=== PATIENT | female | born 1950 | race Caucasian/White ===

== ENCOUNTER → 2016-05-23 | Outpatient (REF) | payer MEDICARE ==
[~2016-05-23] MED LIST: /FENT25PA; /WARF25TA; ACET65TA; ASP81 PO; ASPI1TAB5 PO; ASPI81TA3; ASPI81TA31; ATEN25TA; ATENOL25 PO; AVANDIA4 PO; BUSPAR10 PO; CEFT500T PO; CHERSYP3 PO; CIPRO500 PO; COLA100C2; COMBIN INH; DURATUSS-G PO; ENOX40SY; GLUC500T; IBUP600T; IBUP800T; INSURSD IV; LASIX20 PO; LEVAQUI500 PO; LIPI20TA; LIPITOR10 PO; LIPITOR20 PO; LORA0.5T; LOTRISCREA TOPICALLY; METF1000 PO; METF500T4; METFORM100 PO; METFORM500 PO; MILKSUS; MOTR200T4; MYCOLOG2 TOPICALLY; NITR0.4S; NITROQUICK; NITROSTAT4 SL; NYSTATIN OINT; OMEPRAZ20 PO; PERC5TAB8; PERCOCET; PRIL20CA; PRILOSEC20 PO; PYRIDIU200 PO; SENO8.6T5; SILV1CRE19 EX; THERGRAN; VICKS VAPOR RUB; VICO5TAB; VITAMIN D; VITAMIN D50000 UNT; ZETIA PO; ZOCO40TA; ZYLO300T; [UNRECOGNIZED DRUG - OTHER] PO
[2016-05-23 13:02] LABS: PERCENT SATURATION 8.5 % (13.2-37.4)
== END ==
LOC: M LAB REF 12:32
PROVIDERS: ATTEND Internal Medicine Medical Oncology
DX: D50.9 Iron deficiency anemia, unspecified (principal)

== ENCOUNTER → 2016-06-19 | Outpatient (CLI) | payer MEDICARE | LOC: M ONCR 09:41 | PROVIDERS: ATTEND Radiology Radiation Oncology | DX: C50.511 Malignant neoplasm of lower-outer quadrant of right female breast (principal) ==

== ENCOUNTER → 2016-09-26 | Outpatient (REF) | payer MEDICARE ==
[~2016-09-26] MED LIST changes: +CALC1TAB40 PO; +FERR150C PO; +FURO40TA2; +JANU100T PO; +LISI-542 PO; +MAGN64TASA PO; +NADO40TA; +OMEP20CA3 PO; +SPIR50TA2
[2016-09-26 13:10] LABS: PERCENT SATURATION 9.3 % (13.2-37.4)
== END ==
LOC: M LAB REF 12:23
PROVIDERS: ATTEND Internal Medicine Medical Oncology
DX: C50.919 Malignant neoplasm of unspecified site of unspecified female breast (principal)

== ENCOUNTER → 2016-10-25 | Outpatient (CLI) | payer MEDICARE ==
--- NOTE | 2016-10-25 12:36 | REP ---
Right lower extremity deep vein duplex ultrasound: The deep veins demonstrate normal compression, normal Doppler color flow and normal Doppler waveforms with respiration and augmentation at multiple levels from the right popliteal vein to the right common femoral vein. Impression: There is no deep vein thrombus. Signed by Lui Cruz MD 10/25/2016 12:28 P
== END ==
LOC: M RAD 11:42
PROVIDERS: ATTEND Nurse Practitioner Family
DX: R22.42 Localized swelling, mass and lump, left lower limb (principal); M79.604 Pain in right leg

== ENCOUNTER 2016-12-02 21:18 | Emergency (ER) | payer MEDICARE ==
[~2016-12-02] VITALS: Ht 157.5 cm; Wt 84.1 kg
[~2016-12-02 21:18] MED LIST changes: -CALC1TAB40 PO; -FERR150C PO; -FURO40TA2; -JANU100T PO; -LISI-542 PO; -MAGN64TASA PO; -NADO40TA; -OMEP20CA3 PO; -SPIR50TA2
[2016-12-02] MEDS ORDERED: JANU100T PO (21:39)
[2016-12-02] MEDS ORDERED: LISI-542 PO (21:39)
[2016-12-02] MEDS ORDERED: CALC1TAB40 PO (21:39)
[2016-12-02] MEDS ORDERED: MAGN64TASA PO (21:39)
[2016-12-02] MEDS ORDERED: FERR150C PO (21:39)
[2016-12-02] MEDS ORDERED: OMEP20CA3 PO (21:39)
[2016-12-02 22:11] LABS: BASO % 0.4 % (0.0-1.0); EOS # 0.2 K/mm3 (0.0-0.50); EOS % 2.2 % (0.0-3.0); LARGE UNSTAINED CELL # 0.1 K/mm3 (0.0-0.4); LARGE UNSTAINED CELL % 1.2 % (0.0-4.0); LYMPH # 0.8 K/mm3 (1.5-4.5); LYMPH % 10.5 % (24.0-44.0); MEAN CORPUSCULAR HEMOGLOBIN 28.6 pg (27.0-33.0); MEAN CORPUSCULAR VOLUME 89.6 fl (80.0-96.0); MONO # 0.5 K/mm3 (0.0-0.8); NEUTROPHILS # 5.9 K/mm3 (1.8-7.7); NEUTROPHILS % 79.7 % (36.0-66.0); PLATELET COUNT, AUTOMATED 138 k/mm3 (150-450); WHITE BLOOD COUNT 7.4 K/mm3 (4.0-10.0)
[2016-12-02 22:18] LABS: INR 1.4
[2016-12-02 22:22] LABS: ANION GAP 9 MEQ/L (8-16); BLOOD UREA NITROGEN 27 MG/DL (7-18); CALCIUM LEVEL 8.7 MG/DL (8.8-10.2); CARBON DIOXIDE LEVEL 27 MEQ/L (21-32); CHLORIDE LEVEL 109 MEQ/L (98-107); CREATININE FOR GFR 0.55 MG/DL (0.55-1.02); GLOMERULAR FILTRATION RATE > 60.0 (>45); GLUCOSE, FASTING 156 MG/DL (80-110); POTASSIUM SERUM 4.1 MEQ/L (3.5-5.1); SODIUM LEVEL 145 MEQ/L (136-145)
[2016-12-03] MEDS ORDERED: METOCLOPRAMIDE INJ 10MG/2ML VIAL (J2765) IV ONE (00:30)
[2016-12-03] MEDS ORDERED: OCTREOTIDE ACETATE 100 MCG/ML VIAL (J2354) IV ONE (00:45)
[2016-12-03] MEDS: OCTREOTIDE ACETATE 1,200 MCG in NS 238.8 ML IV SCH ×2 (01:35→01:36)
[2016-12-03 01:43] VITALS: BP 205/98
== END 2016-12-03 01:48 | disposition short-term general hospital (02) ==
LOC: EDBD 21:18 → M ED 21:18
DX: I85.11 Secondary esophageal varices with bleeding (principal); I10 Essential (primary) hypertension; E11.9 Type 2 diabetes mellitus without complications; D50.9 Iron deficiency anemia, unspecified; K21.9 Gastro-esophageal reflux disease without esophagitis; Z79.899 Other long term (current) drug therapy; Z79.82 Long term (current) use of aspirin; Z88.2 Allergy status to sulfonamides
CPT/HCPCS: 80048; 85025; 85610; 85730; 86850; 86900; 86901; 96374; 96375; 99285; J2354; J2765

== ENCOUNTER → 2016-12-09 | Outpatient (REF) | payer MEDICARE ==
[~2016-12-09] MED LIST changes: +CALC1TAB40 PO; +FERR150C PO; +FURO40TA2; +JANU100T PO; +LISI-542 PO; +MAGN64TASA PO; +NADO40TA; +OMEP20CA3 PO; +SPIR50TA2
== END ==
LOC: M LAB REF 16:32
PROVIDERS: ATTEND Nurse Practitioner Family
DX: I85.01 Esophageal varices with bleeding (principal)

== ENCOUNTER 2016-12-18 18:26 | Emergency (ER) | payer MEDICARE ==
[~2016-12-18] VITALS: Ht 157.5 cm; Wt 80.5 kg
[~2016-12-18 18:26] MED LIST changes: -FURO40TA2; -NADO40TA; -SPIR50TA2
[2016-12-18] MEDS ORDERED: SPIR50TA2 (18:37)
[2016-12-18] MEDS ORDERED: NADO40TA (18:37)
[2016-12-18] MEDS ORDERED: FURO40TA2 (18:37)
[2016-12-18] MEDS ORDERED: NS 500 ML IV ONE (19:00)
--- NOTE | 2016-12-18 19:32 | REP ---
REASON: Abdominal pain. History of varices. COMPARISON: 04/10/2012, the latest prior. FINDINGS: Supine and upright views of the abdomen show the intestinal gas pattern to be nonspecific. Gas and stool is seen throughout the colon within the rectosigmoid region. The organ silhouettes insofar as delineated appear unremarkable. No abdominal calcific densities are seen within the abdomen or pelvis. The accompanying single frontal view of the chest shows no free subdiaphragmatic air, cardiomegaly, infiltrates or effusions. The frontal view of the chest view of the chest is unchanged from the prior chest radiograph of 04/10/2012. IMPRESSION: Nonspecific intestinal gas pattern. Signed by Tomer Marrero DO 12/18/2016 07:35 P
[2016-12-18 20:28] LABS: BASO % 0.2 % (0.0-1.0); EOS # 0.2 10^3/uL (0.0-0.50); EOS % 2.1 % (0.0-3.0); IMMATURE GRANULOCYTE % 0.5 % (0-0); LYMPH % 11.9 % (24.0-44.0); MEAN CORPUSCULAR HEMOGLOBIN 26.9 pg (27.0-33.0); MEAN CORPUSCULAR HGB CONC 31.3 g/dl (32.0-36.5); MEAN CORPUSCULAR VOLUME 85.8 fl (80.0-96.0); MONO # 0.8 10^3/uL (0.0-0.8); MONO % 8.8 % (0.0-5.0); NEUTROPHILS # 6.7 10^3/uL (1.8-7.7); NEUTROPHILS % 76.5 % (36.0-66.0); PLATELET COUNT, AUTOMATED 118 10^3/uL (150-450); RED CELL DISTRIBUTION WIDTH 14.3 % (11.5-14.5); WHITE BLOOD COUNT 8.7 10^3/uL (4.0-10.0)
[2016-12-18 20:31] LABS: ADD MORPHOLOGY? NO
[2016-12-18 20:37] LABS: INR 1.33
[2016-12-18 20:44] LABS: ALBUMIN/GLOBULIN RATIO 1.11 (1.00-1.93); ALKALINE PHOSPHATASE 82 U/L (45-117); ALT/SGPT 26 U/L (12-78); ANION GAP 8 MEQ/L (8-16); AST/SGOT 26 U/L (15-37); BILIRUBIN,DIRECT 0.2 MG/DL (0.0-0.2); BILIRUBIN,TOTAL 1.2 MG/DL (0.2-1.0); BLOOD UREA NITROGEN 17 MG/DL (7-18); CALCIUM LEVEL 8.6 MG/DL (8.8-10.2); CARBON DIOXIDE LEVEL 26 MEQ/L (21-32); CHLORIDE LEVEL 104 MEQ/L (98-107); CREATININE FOR GFR 0.54 MG/DL (0.55-1.02); GLOMERULAR FILTRATION RATE > 60.0 (>45); GLUCOSE, FASTING 126 MG/DL (80-110); SODIUM LEVEL 138 MEQ/L (136-145); TOTAL PROTEIN 5.7 GM/DL (6.4-8.2)
[2016-12-18 22:40] VITALS: BP 133/66
--- NOTE | 2016-12-19 20:43 | ECGEPIP ---
Stationary ECG Study [facility] - ED Test Date: 2016-12-18 Pat Name: MICHELLE SQUIRES Department: Room: - Gender: F [employer]inated [employer]inder: TANIA : 1950 Requested By: Paz Stephens Order Number: [id number] Reading MD: Paz Stephens Measurements Intervals [place] Rate: 87 P: 36 UT: 161 QRS: 49 QRSD: 86 T: 29 QT: 357 QTc: 431 Interpretive Statements SINUS RHYTHM WITH OCCASIONAL ECTOPIC PREMATURE COMPLEXES NSTTW ABNORMALITY NO PRIOR FOR COMPARISON Electronically Signed On 12-19-2016 20:43:13 EDT by Paz Stephens
== END 2016-12-18 22:44 | disposition short-term general hospital (02) ==
LOC: M ED 18:26
DX: E11.9 Type 2 diabetes mellitus without complications (principal); Z79.899 Other long term (current) drug therapy; Z79.84 Long term (current) use of oral hypoglycemic drugs; Z88.2 Allergy status to sulfonamides

== ENCOUNTER → 2017-01-01 | Outpatient (CLI) | payer MEDICARE ==
[~2017-01-01] MED LIST changes: +FURO40TA2; +NADO40TA; +SPIR50TA2
[2017-01-01 11:55] LABS: MEAN CORPUSCULAR HEMOGLOBIN 25.1 pg (27.0-33.0); MEAN CORPUSCULAR HGB CONC 31.3 g/dl (32.0-36.5); MEAN CORPUSCULAR VOLUME 80.2 fl (80.0-96.0); RED CELL DISTRIBUTION WIDTH 15.4 % (11.5-14.5); WHITE BLOOD COUNT 6.5 10^3/uL (4.0-10.0)
[2017-01-01 11:58] LABS: INR 1.42
[2017-01-01 12:16] LABS: ALKALINE PHOSPHATASE 77 U/L (45-117); ALT/SGPT 26 U/L (12-78); ANION GAP 9 MEQ/L (8-16); AST/SGOT 35 U/L (15-37); BILIRUBIN,TOTAL 1.5 MG/DL (0.2-1.0); BLOOD UREA NITROGEN 21 MG/DL (7-18); CARBON DIOXIDE LEVEL 25 MEQ/L (21-32); CHLORIDE LEVEL 101 MEQ/L (98-107); CREATININE FOR GFR 0.78 MG/DL (0.55-1.02); GLOMERULAR FILTRATION RATE > 60.0 (>45); GLUCOSE, FASTING 127 MG/DL (80-110); POTASSIUM SERUM 4.3 MEQ/L (3.5-5.1); SODIUM LEVEL 135 MEQ/L (136-145); TOTAL PROTEIN 5.5 GM/DL (6.4-8.2)
== END ==
LOC: M LAB 10:35
PROVIDERS: ATTEND Nurse Practitioner Family
DX: K74.60 Unspecified cirrhosis of liver (principal)

== ENCOUNTER → 2017-01-15 | Outpatient (CLI) | payer MEDICARE ==
[2017-01-15 17:44] LABS: BASO % 0.1 % (0.0-1.0); EOS # 0.1 10^3/uL (0.0-0.50); EOS % 1.5 % (0.0-3.0); IMMATURE GRANULOCYTE % 0.4 % (0-0); LYMPH # 0.9 10^3/uL (1.5-4.5); LYMPH % 12.9 % (24.0-44.0); MEAN CORPUSCULAR HEMOGLOBIN 23.8 pg (27.0-33.0); MEAN CORPUSCULAR HGB CONC 29.5 g/dl (32.0-36.5); MEAN CORPUSCULAR VOLUME 80.7 fl (80.0-96.0); MONO # 0.7 10^3/uL (0.0-0.8); MONO % 10.9 % (0.0-5.0); NEUTROPHILS % 74.2 % (36.0-66.0); PLATELET COUNT, AUTOMATED 182 10^3/uL (150-450); RED CELL DISTRIBUTION WIDTH 17.2 % (11.5-14.5); WHITE BLOOD COUNT 6.7 10^3/uL (4.0-10.0)
[2017-01-15 18:00] LABS: ALBUMIN 3.2 GM/DL (3.2-5.2); ALBUMIN/GLOBULIN RATIO 1.28 (1.00-1.93); ALKALINE PHOSPHATASE 84 U/L (45-117); ALT/SGPT 23 U/L (12-78); ANION GAP 12 MEQ/L (8-16); AST/SGOT 20 U/L (15-37); BILIRUBIN,TOTAL 1.6 MG/DL (0.2-1.0); BLOOD UREA NITROGEN 18 MG/DL (7-18); CALCIUM LEVEL 8.9 MG/DL (8.8-10.2); CARBON DIOXIDE LEVEL 26 MEQ/L (21-32); CHLORIDE LEVEL 100 MEQ/L (98-107); CREATININE FOR GFR 0.89 MG/DL (0.55-1.02); GLOMERULAR FILTRATION RATE > 60.0 (>45); GLUCOSE, FASTING 120 MG/DL (80-110); MAGNESIUM LEVEL 1.9 MG/DL (1.8-2.4); POTASSIUM SERUM 3.9 MEQ/L (3.5-5.1); SODIUM LEVEL 138 MEQ/L (136-145); TOTAL PROTEIN 5.7 GM/DL (6.4-8.2)
== END ==
LOC: M WUC 12:23
PROVIDERS: ATTEND Internal Medicine Cardiovascular Disease
DX: I49.40 Unspecified premature depolarization (principal); I49.3 Ventricular premature depolarization; R60.0 Localized edema; R94.31 Abnormal electrocardiogram [ECG] [EKG]; I25.10 Atherosclerotic heart disease of native coronary artery without angina pectoris

== ENCOUNTER → 2017-02-25 | Outpatient (REF) | payer MEDICARE | LOC: M LAB REF 16:28 | PROVIDERS: ATTEND Family Medicine | DX: R19.7 Diarrhea, unspecified (principal) ==

== ENCOUNTER → 2017-03-12 | Outpatient (CLI) | payer MEDICARE ==
--- NOTE | 2017-03-12 11:23 | REPMRS ---
Patient History The patient states she has not had a clinical breast exam in over a year. Patient is postmenopausal, has history of breast cancer at age 57, and had first child at age 31. Family history of prostate cancer in maternal uncle at age 50. Radiation therapy of the right breast, October 2008. Chemotherapy, April 2008. Taking tamoxifen for 3 years. Digital Mammo Screening Bilat: March 12, 2017 - Exam #: [id number] Bilateral CC and MLO view(s) were taken. Technologist: Gaby Paz Technologist Prior study comparison: March 11, 2016, bilateral digital mammo screening bilat performed at [facility]. March 09, 2015, bilateral digital mammo screening bilat performed at [facility]. FINDINGS: There are scattered fibroglandular densities. There is a fairly symmetric fibroglandular pattern in both breasts. There has been no interval development of masses, areas of architectural distortion or clusters of microcalcifications typical of malignancy. ASSESSMENT: BI-RADS/ACR category 2 mammogram. Benign finding(s). Recommendation Routine screening mammogram of both breasts in 1 year (for women over age 40). This mammogram was interpreted with the aid of an FDA-approved computer-aided dectection system. Electronically Signed By: Lui Cohen MD 03/12/17 [id number]
== END ==
LOC: M RAD 09:56
PROVIDERS: ATTEND Family Medicine
DX: Z12.31 Encounter for screening mammogram for malignant neoplasm of breast (principal); Z85.3 Personal history of malignant neoplasm of breast; Z79.899 Other long term (current) drug therapy; Z78.0 Asymptomatic menopausal state

== ENCOUNTER → 2017-05-05 | Outpatient (CLI) | payer MEDICARE | LOC: M RAD 09:09 | DX: K74.60 Unspecified cirrhosis of liver (principal); K76.6 Portal hypertension; Z98.890 Other specified postprocedural states | CPT/HCPCS: 76705 ==

== ENCOUNTER → 2017-05-06 | Outpatient (CLI) | payer MEDICARE ==
[2017-05-06 12:25] LABS: BASO % 0.5 % (0.0-1.0); EOS # 0.1 10^3/uL (0.0-0.50); EOS % 1.9 % (0.0-3.0); HEMATOCRIT 34.5 % (36.0-47.0); HEMOGLOBIN 11.3 g/dl (12.0-16.0); IMMATURE GRANULOCYTE % 0.3 % (0-3.0); LYMPH # 0.9 10^3/uL (1.5-4.5); LYMPH % 15.1 % (24.0-44.0); MEAN CORPUSCULAR HEMOGLOBIN 27.5 pg (27.0-33.0); MEAN CORPUSCULAR HGB CONC 32.8 g/dl (32.0-36.5); MEAN CORPUSCULAR VOLUME 83.9 fl (80.0-96.0); MONO # 0.6 10^3/uL (0.0-0.8); MONO % 10.7 % (0.0-5.0); NEUTROPHILS # 4.2 10^3/uL (1.8-7.7); NEUTROPHILS % 71.5 % (36.0-66.0); PLATELET COUNT, AUTOMATED 145 10^3/uL (150-450); RED BLOOD COUNT 4.11 10^6/uL (4.00-5.40); RED CELL DISTRIBUTION WIDTH 17.7 % (11.5-14.5); WHITE BLOOD COUNT 5.9 10^3/uL (4.0-10.0)
[2017-05-06 13:03] LABS: ALPHA FETOPROTEIN TUMOR QUANT 1.4 NG/ML (<8.1)
[2017-05-06 13:07] LABS: ALBUMIN 3.3 GM/DL (3.2-5.2); ALBUMIN/GLOBULIN RATIO 1.18 (1.00-1.93); ALKALINE PHOSPHATASE 104 U/L (45-117); ALT/SGPT 31 U/L (12-78); ANION GAP 10 MEQ/L (8-16); AST/SGOT 39 U/L (7-37); BILIRUBIN,DIRECT 0.4 MG/DL (0.0-0.2); BILIRUBIN,TOTAL 1.7 MG/DL (0.2-1.0); BLOOD UREA NITROGEN 19 MG/DL (7-18); C REACTIVE PROTEIN QUANTITATIV 5.47 MG/DL (0.00-0.30); CALCIUM LEVEL 8.9 MG/DL (8.8-10.2); CARBON DIOXIDE LEVEL 30 MEQ/L (21-32); CHLORIDE LEVEL 99 MEQ/L (98-107); CREATININE FOR GFR 0.73 MG/DL (0.55-1.30); GLOMERULAR FILTRATION RATE > 60.0 (>45); GLUCOSE, FASTING 124 MG/DL (70-100); POTASSIUM SERUM 3.4 MEQ/L (3.5-5.1); SODIUM LEVEL 139 MEQ/L (136-145); TOTAL PROTEIN 6.1 GM/DL (6.4-8.2)
== END ==
LOC: M LAB 11:49
DX: R18.8 Other ascites (principal); K74.60 Unspecified cirrhosis of liver; K76.6 Portal hypertension
CPT/HCPCS: 82248

== ENCOUNTER → 2017-05-19 | Outpatient (CLI) | payer MEDICARE ==
[2017-05-19 10:32] LABS: INR 1.23; PROTHROMBIN TIME 15.7 SECONDS (12.4-14.5)
== END ==
LOC: M LAB 09:46
DX: Z01.818 Encounter for other preprocedural examination (principal); I50.32 Chronic diastolic (congestive) heart failure; I25.10 Atherosclerotic heart disease of native coronary artery without angina pectoris; I11.0 Hypertensive heart disease with heart failure; R60.0 Localized edema

== ENCOUNTER → 2017-05-19 | Outpatient (CLI) | payer MEDICARE ==
[2017-05-19 10:53] LABS: ALBUMIN 3.1 GM/DL (3.2-5.2); ANION GAP 7 MEQ/L (8-16); BLOOD UREA NITROGEN 21 MG/DL (7-18); CALCIUM LEVEL 9.3 MG/DL (8.8-10.2); CARBON DIOXIDE LEVEL 31 MEQ/L (21-32); CHLORIDE LEVEL 97 MEQ/L (98-107); CREATININE FOR GFR 0.88 MG/DL (0.55-1.30); GLOMERULAR FILTRATION RATE > 60.0 (>45); GLUCOSE, FASTING 120 MG/DL (70-100); PHOSPHORUS LEVEL 3.2 MG/DL (2.5-4.9); POTASSIUM SERUM 3.8 MEQ/L (3.5-5.1); SODIUM LEVEL 135 MEQ/L (136-145)
== END ==
LOC: M LAB 09:50
DX: Z01.818 Encounter for other preprocedural examination (principal); K74.60 Unspecified cirrhosis of liver; K76.6 Portal hypertension; R18.8 Other ascites; I50.32 Chronic diastolic (congestive) heart failure; I25.10 Atherosclerotic heart disease of native coronary artery without angina pectoris; I11.0 Hypertensive heart disease with heart failure
CPT/HCPCS: 80069

== ENCOUNTER 2017-05-27 19:53 | Observation (INO) | payer MEDICARE ==
[2017-05-27] MEDS: NS 1,000 ML IV (21:18)
[2017-05-27] MEDS ORDERED: LIDOCAINE 4% TOPICAL SOLN 50 ML BTL TOP (22:30)
[2017-05-27 22:43] LABS: BASO % 0.3 % (0.0-1.0); EOS # 0.1 10^3/uL (0.0-0.50); EOS % 0.6 % (0.0-3.0); HEMATOCRIT 35.2 % (36.0-47.0); HEMOGLOBIN 11.7 g/dl (12.0-16.0); IMMATURE GRANULOCYTE % 0.5 % (0-3.0); LYMPH % 7.7 % (24.0-44.0); MEAN CORPUSCULAR HEMOGLOBIN 28.3 pg (27.0-33.0); MEAN CORPUSCULAR HGB CONC 33.2 g/dl (32.0-36.5); MONO # 1.2 10^3/uL (0.0-0.8); NEUTROPHILS % 81.9 % (36.0-66.0); PLATELET COUNT, AUTOMATED 189 10^3/uL (150-450); RED BLOOD COUNT 4.14 10^6/uL (4.00-5.40); RED CELL DISTRIBUTION WIDTH 16.9 % (11.5-14.5); WHITE BLOOD COUNT 13.4 10^3/uL (4.0-10.0)
[2017-05-27 22:56] LABS: INR 1.35
[2017-05-27 22:57] LABS: PARTIAL THROMBOPLASTIN TIME 31.6 SECONDS (26.8-37.9)
[2017-05-27 23:03] LABS: ALBUMIN/GLOBULIN RATIO 1.15 (1.00-1.93); ALKALINE PHOSPHATASE 133 U/L (45-117); ALT/SGPT 32 U/L (12-78); ANION GAP 11 MEQ/L (8-16); AST/SGOT 31 U/L (7-37); BILIRUBIN,DIRECT 0.5 MG/DL (0.0-0.2); BILIRUBIN,TOTAL 1.9 MG/DL (0.2-1.0); BLOOD UREA NITROGEN 17 MG/DL (7-18); CALCIUM LEVEL 8.5 MG/DL (8.8-10.2); CARBON DIOXIDE LEVEL 29 MEQ/L (21-32); CHLORIDE LEVEL 99 MEQ/L (98-107); CREATININE FOR GFR 0.87 MG/DL (0.55-1.30); GLOMERULAR FILTRATION RATE > 60.0 (>45); GLUCOSE, FASTING 104 MG/DL (70-100); POTASSIUM SERUM 3.8 MEQ/L (3.5-5.1); SODIUM LEVEL 139 MEQ/L (136-145); TOTAL PROTEIN 5.6 GM/DL (6.4-8.2)
[2017-05-27] MEDS: LIDOCAINE 2% JELLY 30 ML TOP (23:04)
[2017-05-28] MEDS ORDERED: ONDANSETRON 4 MG ORAL DISINTEGRATING TAB (S0181) PO (00:30)
[2017-05-28] MEDS ORDERED: DEXTROSE 50% 50 ML SYRINGE IV (00:30)
[2017-05-28] MEDS ORDERED: GLUCOSE 4 GM CHEW TABLET PO (00:30)
[2017-05-28] MEDS ORDERED: GLUCAGON FOR INJ 1 MG VIAL (J1610) SC (00:30)
[2017-05-28] MEDS: HumaLOG INSULIN (NovoLOG) PER UNIT SC ×2 (00:59→07:30)
[2017-05-28] MEDS ORDERED: LR 1,000 ML IV (02:00)
[2017-05-28 08:24] LABS: HEMATOCRIT 34.6 % (36.0-47.0); HEMOGLOBIN 11.2 g/dl (12.0-16.0)
[2017-05-28 08:35] LABS: BEDSIDE GLUCOSE 97 MG/DL (80-115)
[2017-05-28] MEDS: SPIRONOLACTONE 50 MG TAB PO (09:00)
[2017-05-28] MEDS ORDERED: ENTER DRUG NAME HERE (PATIENT'S OWN MED) PO ×2 (09:00)
[2017-05-28] MEDS: MAGNESIUM OXIDE 400 MG TAB (MAG-OX) PO (09:00)
[2017-05-28] MEDS: OMEPRAZOLE 20 MG CAP PO (09:39)
[2017-05-28] MEDS: NADOLOL 20MG TABLET PO (09:40)
[2017-05-28] MEDS: MULTIVITAMINS CHILDREN'S CHEWABLE TABLET PO (09:40)
[2017-05-28] MEDS: FUROSEMIDE 40 MG TAB PO (09:43)
== END 2017-05-28 12:07 | disposition home or self-care (01) ==
LOC: M ED INP 19:54 → M PED 05-28 01:37 → M ED 19:53
DX: K92.1 Melena (principal); K64.5 Perianal venous thrombosis; K74.69 Other cirrhosis of liver; K76.6 Portal hypertension; R18.8 Other ascites; E11.9 Type 2 diabetes mellitus without complications; K21.9 Gastro-esophageal reflux disease without esophagitis; E78.5 Hyperlipidemia, unspecified; I25.2 Old myocardial infarction; Z85.3 Personal history of malignant neoplasm of breast; Z85.72 Personal history of non-Hodgkin lymphomas; Z92.21 Personal history of antineoplastic chemotherapy; Z92.3 Personal history of irradiation; Z79.899 Other long term (current) drug therapy; Z79.84 Long term (current) use of oral hypoglycemic drugs; Z88.2 Allergy status to sulfonamides
CPT/HCPCS: 80076

== ENCOUNTER → 2017-06-05 | Outpatient (CLI) | payer MEDICARE ==
[2017-06-05 13:22] LABS: TYPE AND SCREEN 1
== END ==
LOC: M RADPRO 12:15
DX: K74.60 Unspecified cirrhosis of liver (principal); K76.6 Portal hypertension; R18.8 Other ascites; Z88.2 Allergy status to sulfonamides; Z79.899 Other long term (current) drug therapy; Z79.82 Long term (current) use of aspirin
CPT/HCPCS: 49083

== ENCOUNTER 2017-07-16 13:06 | Inpatient (IN) | payer MEDICARE ==
[2017-07-16] MEDS: NS 1,000 ML IV ×2 (12:32→14:15)
[2017-07-16 13:12] LABS: BASO % 0.1 % (0.0-1.0); EOS % 0.4 % (0.0-3.0); HEMATOCRIT 36.1 % (36.0-47.0); IMMATURE GRANULOCYTE % 0.5 % (0-3.0); LYMPH # 1.3 10^3/uL (1.5-4.5); LYMPH % 12.5 % (24.0-44.0); MEAN CORPUSCULAR HEMOGLOBIN 29.4 pg (27.0-33.0); MEAN CORPUSCULAR HGB CONC 33.2 g/dl (32.0-36.5); MEAN CORPUSCULAR VOLUME 88.5 fl (80.0-96.0); MONO # 0.7 10^3/uL (0.0-0.8); MONO % 6.6 % (0.0-5.0); NEUTROPHILS % 79.9 % (36.0-66.0); PLATELET COUNT, AUTOMATED 133 10^3/uL (150-450); RED BLOOD COUNT 4.08 10^6/uL (4.00-5.40); RED CELL DISTRIBUTION WIDTH 16.4 % (11.5-14.5)
[2017-07-16 13:20] LABS: INR 1.44; PROTHROMBIN TIME 17.9 SECONDS (12.4-14.5)
[2017-07-16 13:21] LABS: PARTIAL THROMBOPLASTIN TIME 27.6 SECONDS (26.8-37.9)
[2017-07-16 13:41] LABS: AMMONIA < 10 uMOL/L (<32)
[2017-07-16 13:45] LABS: ALBUMIN 2.9 GM/DL (3.2-5.2); ALBUMIN/GLOBULIN RATIO 1.07 (1.00-1.93); ALKALINE PHOSPHATASE 174 U/L (45-117); ALT/SGPT 27 U/L (12-78); ANION GAP 10 MEQ/L (8-16); AST/SGOT 38 U/L (7-37); BILIRUBIN,DIRECT 0.5 MG/DL (0.0-0.2); BILIRUBIN,TOTAL 1.7 MG/DL (0.2-1.0); BLOOD UREA NITROGEN 28 MG/DL (7-18); CALCIUM LEVEL 8.8 MG/DL (8.8-10.2); CARBON DIOXIDE LEVEL 28 MEQ/L (21-32); CHLORIDE LEVEL 100 MEQ/L (98-107); CREATININE FOR GFR 1.13 MG/DL (0.55-1.30); GLOMERULAR FILTRATION RATE 51.1 (>45); GLUCOSE, FASTING 119 MG/DL (70-100); LIPASE 162 U/L (73-393); POTASSIUM SERUM 3.4 MEQ/L (3.5-5.1); SODIUM LEVEL 138 MEQ/L (136-145); TOTAL PROTEIN 5.6 GM/DL (6.4-8.2)
[2017-07-16 14:03] LABS: LACTIC ACID SEPSIS PROTOCOL 2.1 MMOL/L (0.4-2.0)
[2017-07-16] MEDS: POTASSIUM CHLORIDE 10 MEQ SR TABLET PO (14:29)
[2017-07-16 15:12] LABS: KETONE, URINE AUTO RFX NEGATIVE (NEGATIVE); LEUKOCYTE ESTERASE UR AUTO RFX 1+ (NEGATIVE); NITRITE, URINE AUTO RFX POSITIVE (NEGATIVE); RBC, URINE AUTO RFX 1 /HPF (0-3); SPECIFIC GRAVITY UR AUTO RFX 1.015 (1.002-1.035); SQUAM EPITHELIAL CELL UR AURFX 1 /HPF (0-6); WBC, URINE AUTO RFX 14 /HPF (0-3)
[2017-07-16] MEDS ORDERED: ANUSOL HC CREAM 30GM PR (17:15)
[2017-07-16] MEDS ORDERED: GLUCAGON FOR INJ 1 MG VIAL (J1610) SC (17:30)
[2017-07-16] MEDS ORDERED: DEXTROSE 50% 50 ML SYRINGE IV (17:30)
[2017-07-16] MEDS ORDERED: GLUCOSE 4 GM CHEW TABLET PO (17:30)
[2017-07-16 19:19] LABS: CK-MB VALUE MASS < 1.0 NG/ML (<3.6); CPK CREATINE PHOSPHOKINASE 28 U/L (26-192); MAGNESIUM LEVEL 1.8 MG/DL (1.8-2.4); MB/CK RELATIVE INDEX 3.57 (< OR =4); TROPONIN I < 0.02 NG/ML (< 0.10)
[2017-07-16 19:25] LABS: VITAMIN B12 LEVEL 424 PG/ML (247-911)
[2017-07-16 19:27] LABS: FOLATE 11.7 NG/ML (>5.4)
[2017-07-16 19:38] LABS: ERYTHROCYTE SEDIMENTATION RATE 3 mm/hr (0-30)
[2017-07-16] MEDS: HumaLOG INSULIN (NovoLOG) PER UNIT SC ×2 (20:07→21:00)
[2017-07-16 21:51] LABS: BEDSIDE GLUCOSE 101 MG/DL (80-115)
[2017-07-16] MEDS: cefTRIAXone SOD 2 GM in D5W MINI-BAG PLUS 50 ML IV (22:10)
[2017-07-16] MEDS: SPIRONOLACTONE 50 MG TAB PO (22:10)
[2017-07-16] MEDS: HEPARIN SOD (PORCINE) 5000 UNITS/ML VIAL SC (22:10)
[2017-07-16] MEDS: rifAXIMin 550 MG TAB (XIFAXAN) PO (22:10)
[2017-07-16] MEDS: SENOKOT S TAB PO (22:10)
[2017-07-16] MEDS: FERROUS SULFATE 325MG TAB PO (22:10)
[2017-07-16] MEDS ORDERED: SLF 3 ML SYR IV (22:15)
[2017-07-16] MEDS: MULTIVITAMINS CHILDREN'S CHEWABLE TABLET PO (22:54)
[2017-07-17 00:11] LABS: CK-MB VALUE MASS < 1.0 NG/ML (<3.6); CPK CREATINE PHOSPHOKINASE 28 U/L (26-192); MB/CK RELATIVE INDEX 3.57 (< OR =4); TROPONIN I < 0.02 NG/ML (< 0.10)
[2017-07-17 04:57] LABS: HEMOGLOBIN 11.8 g/dl (12.0-15.5); MEAN CORPUSCULAR HEMOGLOBIN 29.3 pg (27.0-33.0); MEAN CORPUSCULAR HGB CONC 32.8 g/dl (32.0-36.5); MEAN CORPUSCULAR VOLUME 89.3 fl (80.0-96.0); PLATELET COUNT, AUTOMATED 137 10^3/uL (150-450); RED BLOOD COUNT 4.03 10^6/uL (4.00-5.40); RED CELL DISTRIBUTION WIDTH 16.6 % (11.5-14.5); WHITE BLOOD COUNT 10.9 10^3/uL (4.0-10.0)
[2017-07-17 05:14] LABS: ALBUMIN 2.7 GM/DL (3.2-5.2); ALBUMIN/GLOBULIN RATIO 0.93 (1.00-1.93); ALKALINE PHOSPHATASE 166 U/L (45-117); ALT/SGPT 26 U/L (12-78); ANION GAP 10 MEQ/L (8-16); AST/SGOT 36 U/L (7-37); BILIRUBIN,TOTAL 1.2 MG/DL (0.2-1.0); BLOOD UREA NITROGEN 25 MG/DL (7-18); CALCIUM LEVEL 8.4 MG/DL (8.8-10.2); CARBON DIOXIDE LEVEL 27 MEQ/L (21-32); CHLORIDE LEVEL 103 MEQ/L (98-107); CREATININE FOR GFR 1.14 MG/DL (0.55-1.30); GLOMERULAR FILTRATION RATE 50.6 (>45); GLUCOSE, FASTING 107 MG/DL (70-100); MAGNESIUM LEVEL 1.9 MG/DL (1.8-2.4); POTASSIUM SERUM 3.7 MEQ/L (3.5-5.1); SODIUM LEVEL 140 MEQ/L (136-145); TOTAL PROTEIN 5.6 GM/DL (6.4-8.2)
[2017-07-17 05:18] LABS: INR 1.37; PROTHROMBIN TIME 17.2 SECONDS (12.4-14.5)
[2017-07-17] MEDS: SLF 3 ML SYR IV ×3 (05:36→22:33)
[2017-07-17] MEDS: HumaLOG INSULIN (NovoLOG) PER UNIT SC ×4 (08:50→20:48)
[2017-07-17] MEDS: SPIRONOLACTONE 50 MG TAB PO ×2 (08:50→20:48)
[2017-07-17] MEDS: FERROUS SULFATE 325MG TAB PO ×2 (08:51→20:48)
[2017-07-17] MEDS: ASPIRIN 81 MG ENTERIC TAB PO (08:51)
[2017-07-17] MEDS: OMEPRAZOLE 20 MG CAP PO (08:51)
[2017-07-17] MEDS: THIAMINE 100 MG TAB PO (08:51)
[2017-07-17] MEDS: SENOKOT S TAB PO ×2 (08:51→20:48)
[2017-07-17] MEDS: rifAXIMin 550 MG TAB (XIFAXAN) PO ×2 (08:51→20:48)
[2017-07-17] MEDS: HEPARIN SOD (PORCINE) 5000 UNITS/ML VIAL SC ×3 (08:52→20:48)
[2017-07-17] MEDS: MULTIVITAMINS CHILDREN'S CHEWABLE TABLET PO ×2 (10:33→20:48)
[2017-07-17] MEDS: NADOLOL 20MG TABLET PO (10:33)
[2017-07-17] MEDS: TORSEMIDE (DEMADEX) 50 MG PER 1/2 TAB PO (10:33)
[2017-07-17 13:09] LABS: ESTIMATED AVERAGE GLUCOSE 120 MG/DL (60-110); HEMOGLOBIN A1c 5.8 %
[2017-07-17 15:14] LABS: PH BODY FLUID 7.778 UNITS (NOT ESTABLISHED); SOURCE, BODY FLUID pH ASCITES
[2017-07-17 15:30] LABS: AMYLASE, BODY FLUID 12 U/L (NOT ESTABLISHED); LDH, BODY FLUID 31 U/L (NOT ESTABLISHED); SOURCE, BODY FLUID AMYLASE ASCITES; SOURCE, BODY FLUID GLUCOSE ASCITES; SOURCE, BODY FLUID LDH ASCITES; SOURCE, BODY FLUID TOT PROTEIN ASCITES; TOTAL PROTEIN, BODY FLUID 0.8 G/DL (NOT ESTABLISHED)
[2017-07-17 15:31] LABS: BF MONONUCLEAR CELL % 84.3 % (0-0); BF POLYMORPHONUCLEAR CELL % 15.7 % (0-0); RBC BODY FLUID < 2 10^3/uL (<2); WBC BODY FLUID 51 /uL (0-10)
[2017-07-17 15:33] LABS: APPEARANCE, BODY FLUID CLEAR (CLEAR); ASCITES FL COLOR YELLOW (COLORLESS); BF DIFF IF INDICATED? YES (NO); SOURCE, BODY FLUID ASCITES
[2017-07-17 16:39] LABS: TYPE AND SCREEN 1
[2017-07-17 16:47] LABS: BEDSIDE GLUCOSE 93 MG/DL (80-115)
[2017-07-17] MEDS: ZINC SULFATE 220 MG CAP PO (17:03)
[2017-07-17 21:03] LABS: BEDSIDE GLUCOSE 225 MG/DL (80-115)
[2017-07-17] MEDS: cefTRIAXone SOD 2 GM in D5W MINI-BAG PLUS 50 ML IV (22:33)
[2017-07-18 05:05] LABS: HEMATOCRIT 31.8 % (36.0-47.0); HEMOGLOBIN 10.6 g/dl (12.0-15.5); MEAN CORPUSCULAR HEMOGLOBIN 29.6 pg (27.0-33.0); MEAN CORPUSCULAR HGB CONC 33.3 g/dl (32.0-36.5); MEAN CORPUSCULAR VOLUME 88.8 fl (80.0-96.0); RED BLOOD COUNT 3.58 10^6/uL (4.00-5.40); RED CELL DISTRIBUTION WIDTH 16.6 % (11.5-14.5); WHITE BLOOD COUNT 7.6 10^3/uL (4.0-10.0)
[2017-07-18] MEDS: SLF 3 ML SYR IV ×3 (05:17→20:39)
[2017-07-18 05:19] LABS: INR 1.55; PROTHROMBIN TIME 18.9 SECONDS (12.4-14.5)
[2017-07-18 05:30] LABS: ALBUMIN/GLOBULIN RATIO 1.36 (1.00-1.93); ALKALINE PHOSPHATASE 138 U/L (45-117); ALT/SGPT 19 U/L (12-78); ANION GAP 11 MEQ/L (8-16); AST/SGOT 28 U/L (7-37); BILIRUBIN,TOTAL 0.7 MG/DL (0.2-1.0); BLOOD UREA NITROGEN 27 MG/DL (7-18); CALCIUM LEVEL 8.4 MG/DL (8.8-10.2); CARBON DIOXIDE LEVEL 29 MEQ/L (21-32); CHLORIDE LEVEL 102 MEQ/L (98-107); GLOMERULAR FILTRATION RATE 47.7 (>45); GLUCOSE, FASTING 139 MG/DL (70-100); MAGNESIUM LEVEL 1.6 MG/DL (1.8-2.4); POTASSIUM SERUM 3.3 MEQ/L (3.5-5.1); SODIUM LEVEL 142 MEQ/L (136-145); TOTAL PROTEIN 5.2 GM/DL (6.4-8.2)
[2017-07-18 05:34] LABS: PLATELET COUNT, AUTOMATED 98 10^3/uL (150-450)
[2017-07-18 05:38] LABS: IMMATURE PLATELET FRACTION % 2.7 % (0.0-9.6)
[2017-07-18] MEDS: HumaLOG INSULIN (NovoLOG) PER UNIT SC ×4 (07:30→20:37)
[2017-07-18] MEDS: FERROUS SULFATE 325MG TAB PO ×2 (08:58→20:38)
[2017-07-18] MEDS: SPIRONOLACTONE 50 MG TAB PO ×2 (08:58→20:38)
[2017-07-18] MEDS: rifAXIMin 550 MG TAB (XIFAXAN) PO ×2 (08:58→20:38)
[2017-07-18] MEDS: SENOKOT S TAB PO (08:58)
[2017-07-18] MEDS: ASPIRIN 81 MG ENTERIC TAB PO (08:58)
[2017-07-18] MEDS: ZINC SULFATE 220 MG CAP PO (08:59)
[2017-07-18] MEDS: MULTIVITAMINS CHILDREN'S CHEWABLE TABLET PO ×2 (08:59→20:38)
[2017-07-18] MEDS: THIAMINE 100 MG TAB PO (08:59)
[2017-07-18] MEDS: OMEPRAZOLE 20 MG CAP PO (08:59)
[2017-07-18] MEDS: HEPARIN SOD (PORCINE) 5000 UNITS/ML VIAL SC ×2 (08:59→20:38)
[2017-07-18] MEDS: TORSEMIDE (DEMADEX) 50 MG PER 1/2 TAB PO (08:59)
[2017-07-18] MEDS: POTASSIUM CHLORIDE 10 MEQ SR TABLET PO (08:59)
[2017-07-18] MEDS: NADOLOL 20MG TABLET PO (09:00)
[2017-07-18 12:11] LABS: ALPHA FETOPROTEIN TUMOR QUANT < 1.3 NG/ML (<8.1)
[2017-07-18 16:38] LABS: BEDSIDE GLUCOSE 189 MG/DL (80-115)
[2017-07-18 20:57] LABS: BEDSIDE GLUCOSE 152 MG/DL (80-115)
[2017-07-18] MEDS: cefTRIAXone SOD 2 GM in D5W MINI-BAG PLUS 50 ML IV (22:02)
[2017-07-19 03:48] LABS: HEMATOCRIT 32.3 % (36.0-47.0); MEAN CORPUSCULAR HEMOGLOBIN 29.7 pg (27.0-33.0); MEAN CORPUSCULAR HGB CONC 34.1 g/dl (32.0-36.5); MEAN CORPUSCULAR VOLUME 87.3 fl (80.0-96.0); PLATELET COUNT, AUTOMATED 100 10^3/uL (150-450); WHITE BLOOD COUNT 8.3 10^3/uL (4.0-10.0)
[2017-07-19 03:54] LABS: INR 1.45
[2017-07-19 04:13] LABS: AMMONIA 44 uMOL/L (<32)
[2017-07-19 04:15] LABS: ALBUMIN 2.7 GM/DL (3.2-5.2); ALBUMIN/GLOBULIN RATIO 1.17 (1.00-1.93); ALKALINE PHOSPHATASE 145 U/L (45-117); ALT/SGPT 21 U/L (12-78); ANION GAP 8 MEQ/L (8-16); AST/SGOT 37 U/L (7-37); BILIRUBIN,TOTAL 0.5 MG/DL (0.2-1.0); BLOOD UREA NITROGEN 25 MG/DL (7-18); CALCIUM LEVEL 7.6 MG/DL (8.8-10.2); CARBON DIOXIDE LEVEL 29 MEQ/L (21-32); CHLORIDE LEVEL 102 MEQ/L (98-107); CREATININE FOR GFR 1.24 MG/DL (0.55-1.30); GLOMERULAR FILTRATION RATE 45.9 (>45); GLUCOSE, FASTING 151 MG/DL (70-100); MAGNESIUM LEVEL 1.5 MG/DL (1.8-2.4); POTASSIUM SERUM 3.4 MEQ/L (3.5-5.1); SODIUM LEVEL 139 MEQ/L (136-145)
[2017-07-19] MEDS: SLF 3 ML SYR IV ×3 (05:18→21:04)
[2017-07-19] MEDS: POTASSIUM CHLORIDE 10 MEQ SR TABLET PO (06:57)
[2017-07-19] MEDS: LACTULOSE 20 GM/30 ML SYRUP UD PO ×3 (06:58→21:03)
[2017-07-19 08:08] LABS: BEDSIDE GLUCOSE 167 MG/DL (80-115)
[2017-07-19] MEDS ORDERED: SENOKOT S TAB PO (09:00)
[2017-07-19] MEDS: NADOLOL 20MG TABLET PO (09:00)
[2017-07-19] MEDS: HumaLOG INSULIN (NovoLOG) PER UNIT SC ×4 (09:12→20:56)
[2017-07-19] MEDS: HEPARIN SOD (PORCINE) 5000 UNITS/ML VIAL SC ×2 (09:12→20:56)
[2017-07-19] MEDS: rifAXIMin 550 MG TAB (XIFAXAN) PO ×2 (09:13→20:55)
[2017-07-19] MEDS: ZINC SULFATE 220 MG CAP PO (09:13)
[2017-07-19] MEDS: MULTIVITAMINS CHILDREN'S CHEWABLE TABLET PO ×2 (09:13→20:55)
[2017-07-19] MEDS: TORSEMIDE (DEMADEX) 50 MG PER 1/2 TAB PO (09:13)
[2017-07-19] MEDS: THIAMINE 100 MG TAB PO (09:14)
[2017-07-19] MEDS: ASPIRIN 81 MG ENTERIC TAB PO (09:14)
[2017-07-19] MEDS: FERROUS SULFATE 325MG TAB PO ×2 (09:14→20:55)
[2017-07-19] MEDS: SPIRONOLACTONE 50 MG TAB PO ×2 (09:14→20:55)
[2017-07-19] MEDS: OMEPRAZOLE 20 MG CAP PO (09:14)
[2017-07-19 12:18] LABS: BEDSIDE GLUCOSE 178 MG/DL (80-115)
[2017-07-19] MEDS: cefTRIAXone SOD 2 GM in D5W MINI-BAG PLUS 50 ML IV (21:04)
[2017-07-20 05:15] LABS: HEMATOCRIT 31.8 % (36.0-47.0); HEMOGLOBIN 10.7 g/dl (12.0-15.5); MEAN CORPUSCULAR HEMOGLOBIN 29.3 pg (27.0-33.0); MEAN CORPUSCULAR HGB CONC 33.6 g/dl (32.0-36.5); MEAN CORPUSCULAR VOLUME 87.1 fl (80.0-96.0); RED BLOOD COUNT 3.65 10^6/uL (4.00-5.40); WHITE BLOOD COUNT 6.6 10^3/uL (4.0-10.0)
[2017-07-20 05:28] LABS: INR 1.35; PROTHROMBIN TIME 16.9 SECONDS (12.4-14.5)
[2017-07-20 05:42] LABS: ALBUMIN 2.5 GM/DL (3.2-5.2); ALBUMIN/GLOBULIN RATIO 0.96 (1.00-1.93); ALKALINE PHOSPHATASE 165 U/L (45-117); ALT/SGPT 31 U/L (12-78); ANION GAP 7 MEQ/L (8-16); AST/SGOT 59 U/L (7-37); BILIRUBIN,TOTAL 0.5 MG/DL (0.2-1.0); BLOOD UREA NITROGEN 22 MG/DL (7-18); CALCIUM LEVEL 7.9 MG/DL (8.8-10.2); CARBON DIOXIDE LEVEL 29 MEQ/L (21-32); CHLORIDE LEVEL 102 MEQ/L (98-107); CREATININE FOR GFR 1.12 MG/DL (0.55-1.30); GLOMERULAR FILTRATION RATE 51.7 (>45); GLUCOSE, FASTING 131 MG/DL (70-100); MAGNESIUM LEVEL 1.5 MG/DL (1.8-2.4); POTASSIUM SERUM 3.7 MEQ/L (3.5-5.1); SODIUM LEVEL 138 MEQ/L (136-145); TOTAL PROTEIN 5.1 GM/DL (6.4-8.2)
[2017-07-20 05:44] LABS: PLATELET COUNT, AUTOMATED 95 10^3/uL (150-450)
[2017-07-20] MEDS: SLF 3 ML SYR IV ×3 (06:37→22:00)
[2017-07-20] MEDS: LACTULOSE 20 GM/30 ML SYRUP UD PO ×3 (06:37→21:43)
[2017-07-20] MEDS: ASPIRIN 81 MG ENTERIC TAB PO (08:03)
[2017-07-20] MEDS: THIAMINE 100 MG TAB PO (08:03)
[2017-07-20] MEDS: rifAXIMin 550 MG TAB (XIFAXAN) PO ×2 (08:03→21:00)
[2017-07-20] MEDS: SPIRONOLACTONE 50 MG TAB PO ×2 (08:03→21:00)
[2017-07-20] MEDS: MULTIVITAMINS CHILDREN'S CHEWABLE TABLET PO ×2 (08:04→21:00)
[2017-07-20] MEDS: ZINC SULFATE 220 MG CAP PO (08:04)
[2017-07-20] MEDS: FERROUS SULFATE 325MG TAB PO ×2 (08:04→21:00)
[2017-07-20] MEDS: OMEPRAZOLE 20 MG CAP PO (08:04)
[2017-07-20] MEDS: TORSEMIDE (DEMADEX) 50 MG PER 1/2 TAB PO (08:04)
[2017-07-20] MEDS: MAGNESIUM OXIDE 400 MG TAB (MAG-OX) PO (08:04)
[2017-07-20] MEDS: HEPARIN SOD (PORCINE) 5000 UNITS/ML VIAL SC ×2 (08:05→21:49)
[2017-07-20] MEDS: NADOLOL 20MG TABLET PO (08:05)
[2017-07-20] MEDS: MAG SULF 1GM/100ML (MAG RUN) 1 GM in APPROPRIATE DILUENT 1 EA IV (08:06)
[2017-07-20] MEDS: HumaLOG INSULIN (NovoLOG) PER UNIT SC ×4 (08:06→21:00)
[2017-07-20 08:48] LABS: AMMONIA < 10 uMOL/L (<32)
[2017-07-20] MEDS ORDERED: LORazepam 2 MG/ML VIAL (J2060) As Ordered ×2 (16:04→16:07)
[2017-07-20 16:13] LABS: ABG BASE EXCESS -1.1 (-2.0-2.0); ABG HCO3 22.8 MEQ/L (22.0-26.0); ABG O2 SATURATION 99.3 % (95.0-99.0); ABG PARTIAL PRESSURE CO2 35.7 mmHg (35.0-45.0); ABG PARTIAL PRESSURE O2 170.3 mmHg (75.0-100.0); ABG STANDARD HCO3 23.6 MEQ/L (22.0-26.0); ABG TOTAL CO2 23.9 MEQ/L (23.0-31.0); ABG pH (ARTERIAL) 7.424 UNITS (7.350-7.450)
[2017-07-20] MEDS: LORazepam 2 MG/ML VIAL (J2060) IV ×3 (16:13→21:44)
[2017-07-20] MEDS: levETIRAcetam INJection 500 MG in D5W MINI-BAG PLUS 100 ML IV ×2 (16:19→16:59)
[2017-07-20 16:30] LABS: HEMATOCRIT 36.5 % (36.0-47.0); MEAN CORPUSCULAR HEMOGLOBIN 29.9 pg (27.0-33.0); MEAN CORPUSCULAR HGB CONC 32.9 g/dl (32.0-36.5); MEAN CORPUSCULAR VOLUME 90.8 fl (80.0-96.0); PLATELET COUNT, AUTOMATED 154 10^3/uL (150-450); RED BLOOD COUNT 4.02 10^6/uL (4.00-5.40); WHITE BLOOD COUNT 15.3 10^3/uL (4.0-10.0)
[2017-07-20 16:41] LABS: INR 1.27; PROTHROMBIN TIME 16.2 SECONDS (12.4-14.5)
[2017-07-20 16:56] LABS: CK-MB VALUE MASS < 1.0 NG/ML (<3.6); CPK CREATINE PHOSPHOKINASE 43 U/L (26-192); MB/CK RELATIVE INDEX 2.32 (< OR =4); TROPONIN I < 0.02 NG/ML (< 0.10)
[2017-07-20 16:57] LABS: ALBUMIN/GLOBULIN RATIO 1.11 (1.00-1.93); ALKALINE PHOSPHATASE 213 U/L (45-117); ALT/SGPT 48 U/L (12-78); ANION GAP 15 MEQ/L (8-16); AST/SGOT 89 U/L (7-37); BILIRUBIN,TOTAL 0.6 MG/DL (0.2-1.0); BLOOD UREA NITROGEN 22 MG/DL (7-18); CALCIUM LEVEL 7.9 MG/DL (8.8-10.2); CARBON DIOXIDE LEVEL 26 MEQ/L (21-32); CHLORIDE LEVEL 96 MEQ/L (98-107); CREATININE FOR GFR 1.28 MG/DL (0.55-1.30); GLOMERULAR FILTRATION RATE 44.3 (>45); GLUCOSE, FASTING 164 MG/DL (70-100); MAGNESIUM LEVEL 1.9 MG/DL (1.8-2.4); SODIUM LEVEL 137 MEQ/L (136-145); TOTAL PROTEIN 5.7 GM/DL (6.4-8.2)
[2017-07-20 17:34] LABS: BEDSIDE GLUCOSE 167 MG/DL (80-115)
[2017-07-20 17:34] LABS: BEDSIDE GLUCOSE 156 MG/DL (80-115)
[2017-07-20 17:35] LABS: BEDSIDE GLUCOSE 217 MG/DL (80-115)
[2017-07-20 17:35] LABS: BEDSIDE GLUCOSE 229 MG/DL (80-115)
[2017-07-20] MEDS: KCL 10MEQ/100ML SWI (KRUN) 10 MEQ in APPROPRIATE DILUENT 1 EA IV ×3 (18:01→21:46)
[2017-07-20 18:04] LABS: BEDSIDE GLUCOSE 168 MG/DL (80-115)
[2017-07-20 23:37] LABS: ALBUMIN 2.4 GM/DL (3.2-5.2); ALBUMIN/GLOBULIN RATIO 1.04 (1.00-1.93); ALKALINE PHOSPHATASE 175 U/L (45-117); ALT/SGPT 46 U/L (12-78); ANION GAP 7 MEQ/L (8-16); AST/SGOT 71 U/L (7-37); BILIRUBIN,TOTAL 0.6 MG/DL (0.2-1.0); BLOOD UREA NITROGEN 21 MG/DL (7-18); CALCIUM LEVEL 7.4 MG/DL (8.8-10.2); CARBON DIOXIDE LEVEL 29 MEQ/L (21-32); CHLORIDE LEVEL 101 MEQ/L (98-107); CREATININE FOR GFR 1.24 MG/DL (0.55-1.30); GLOMERULAR FILTRATION RATE 45.9 (>45); GLUCOSE, FASTING 159 MG/DL (70-100); POTASSIUM SERUM 3.8 MEQ/L (3.5-5.1); SODIUM LEVEL 137 MEQ/L (136-145); TOTAL PROTEIN 4.7 GM/DL (6.4-8.2)
[2017-07-21] MEDS: NS 1,000 ML IV (00:30)
[2017-07-21 02:55] LABS: TYPE AND SCREEN 1
[2017-07-21] MEDS: SLF 3 ML SYR IV ×3 (05:22→21:21)
[2017-07-21] MEDS: LACTULOSE 20 GM/30 ML SYRUP UD PO ×3 (05:22→21:18)
[2017-07-21 05:52] LABS: MEAN CORPUSCULAR HEMOGLOBIN 29.7 pg (27.0-33.0); MEAN CORPUSCULAR HGB CONC 33.6 g/dl (32.0-36.5); MEAN CORPUSCULAR VOLUME 88.6 fl (80.0-96.0); RED BLOOD COUNT 3.16 10^6/uL (4.00-5.40); RED CELL DISTRIBUTION WIDTH 16.5 % (11.5-14.5); WHITE BLOOD COUNT 7.6 10^3/uL (4.0-10.0)
[2017-07-21 06:01] LABS: INR 1.39; PROTHROMBIN TIME 17.3 SECONDS (12.4-14.5)
[2017-07-21 06:17] LABS: ALBUMIN 2.9 GM/DL (3.2-5.2); ALBUMIN/GLOBULIN RATIO 1.45 (1.00-1.93); ALKALINE PHOSPHATASE 155 U/L (45-117); ALT/SGPT 40 U/L (12-78); ANION GAP 8 MEQ/L (8-16); AST/SGOT 55 U/L (7-37); BILIRUBIN,TOTAL 0.7 MG/DL (0.2-1.0); BLOOD UREA NITROGEN 22 MG/DL (7-18); CALCIUM LEVEL 7.7 MG/DL (8.8-10.2); CARBON DIOXIDE LEVEL 29 MEQ/L (21-32); CHLORIDE LEVEL 102 MEQ/L (98-107); CREATININE FOR GFR 1.15 MG/DL (0.55-1.30); GLOMERULAR FILTRATION RATE 50.1 (>45); GLUCOSE, FASTING 138 MG/DL (70-100); MAGNESIUM LEVEL 1.7 MG/DL (1.8-2.4); POTASSIUM SERUM 3.3 MEQ/L (3.5-5.1); SODIUM LEVEL 139 MEQ/L (136-145); TOTAL PROTEIN 4.9 GM/DL (6.4-8.2)
[2017-07-21 06:23] LABS: HEMOGLOBIN 9.4 g/dl (12.0-15.5); PLATELET COUNT, AUTOMATED 79 10^3/uL (150-450)
[2017-07-21 06:24] LABS: IMMATURE PLATELET FRACTION % 2.4 % (0.0-9.6)
[2017-07-21] MEDS: HEPARIN SOD (PORCINE) 5000 UNITS/ML VIAL SC ×2 (07:52→21:00)
[2017-07-21] MEDS: HumaLOG INSULIN (NovoLOG) PER UNIT SC ×4 (07:52→21:00)
[2017-07-21] MEDS: OMEPRAZOLE 20 MG CAP PO (07:53)
[2017-07-21] MEDS: KCL 10MEQ/100ML SWI (KRUN) 10 MEQ in APPROPRIATE DILUENT 1 EA IV ×2 (07:53→10:27)
[2017-07-21] MEDS: THIAMINE 100 MG TAB PO (07:54)
[2017-07-21] MEDS: rifAXIMin 550 MG TAB (XIFAXAN) PO ×2 (07:54→21:20)
[2017-07-21] MEDS: TORSEMIDE (DEMADEX) 50 MG PER 1/2 TAB PO (07:54)
[2017-07-21] MEDS: MULTIVITAMINS CHILDREN'S CHEWABLE TABLET PO ×2 (07:54→21:20)
[2017-07-21] MEDS: ZINC SULFATE 220 MG CAP PO (07:54)
[2017-07-21] MEDS: SPIRONOLACTONE 50 MG TAB PO ×2 (07:54→21:20)
[2017-07-21] MEDS: ASPIRIN 81 MG ENTERIC TAB PO (07:55)
[2017-07-21] MEDS: FERROUS SULFATE 325MG TAB PO ×2 (07:55→21:20)
[2017-07-21] MEDS: MAGNESIUM OXIDE 400 MG TAB (MAG-OX) PO (07:55)
[2017-07-21] MEDS: NADOLOL 20MG TABLET PO (07:57)
[2017-07-21] MEDS ORDERED: levETIRAcetam 250MG TABLET (KEPPRA) PO (09:00)
[2017-07-21] MEDS: MAG SULF 1GM/100ML (MAG RUN) 1 GM in APPROPRIATE DILUENT 1 EA IV (09:21)
[2017-07-21 09:35] LABS: PROLACTIN 37.1 NG/ML
[2017-07-21 12:18] LABS: BEDSIDE GLUCOSE 176 MG/DL (80-115)
[2017-07-21 14:57] LABS: TYPE AND SCREEN 1
[2017-07-21 16:34] LABS: BEDSIDE GLUCOSE 219 MG/DL (80-115)
[2017-07-21 17:21] LABS: BEDSIDE GLUCOSE 141 MG/DL (80-115)
[2017-07-21 20:51] LABS: THYROGLOBULIN ANTIBODY 15.8 U/ML (<60.0)
[2017-07-21 20:51] LABS: THYROID PEROXIDASE ANTIBODY 28.5 U/ML (<60.0)
[2017-07-22 00:06] LABS: ANCA-ATYPICAL <1:20 titer (Neg:<1:20); ANTINUCLEAR ANTIBODIES DIRECT Negative (Negative); CYTOPLASMIC NEUTROP AB ANCA-C <1:20 titer (Neg:<1:20); PERINUCLEAR AB ANCA-P <1:20 titer (Neg:<1:20)
[2017-07-22 05:24] LABS: HEMATOCRIT 28.2 % (36.0-47.0); HEMOGLOBIN 9.4 g/dl (12.0-15.5); MEAN CORPUSCULAR HEMOGLOBIN 29.2 pg (27.0-33.0); MEAN CORPUSCULAR HGB CONC 33.3 g/dl (32.0-36.5); MEAN CORPUSCULAR VOLUME 87.6 fl (80.0-96.0); RED BLOOD COUNT 3.22 10^6/uL (4.00-5.40); RED CELL DISTRIBUTION WIDTH 16.6 % (11.5-14.5); WHITE BLOOD COUNT 5.6 10^3/uL (4.0-10.0)
[2017-07-22 05:30] LABS: INR 1.34; PROTHROMBIN TIME 16.9 SECONDS (12.4-14.5)
[2017-07-22] MEDS: LACTULOSE 20 GM/30 ML SYRUP UD PO ×4 (05:30→22:11)
[2017-07-22 05:31] LABS: PLATELET COUNT, AUTOMATED 71 10^3/uL (150-450)
[2017-07-22 05:40] LABS: ALBUMIN 3.1 GM/DL (3.2-5.2); ALBUMIN/GLOBULIN RATIO 1.48 (1.00-1.93); ALKALINE PHOSPHATASE 180 U/L (45-117); ALT/SGPT 52 U/L (12-78); ANION GAP 10 MEQ/L (8-16); AST/SGOT 66 U/L (7-37); BLOOD UREA NITROGEN 20 MG/DL (7-18); CALCIUM LEVEL 8.4 MG/DL (8.8-10.2); CARBON DIOXIDE LEVEL 29 MEQ/L (21-32); CHLORIDE LEVEL 98 MEQ/L (98-107); CREATININE FOR GFR 1.14 MG/DL (0.55-1.30); GLOMERULAR FILTRATION RATE 50.6 (>45); GLUCOSE, FASTING 182 MG/DL (70-100); MAGNESIUM LEVEL 1.9 MG/DL (1.8-2.4); POTASSIUM SERUM 3.5 MEQ/L (3.5-5.1); SODIUM LEVEL 137 MEQ/L (136-145); TOTAL PROTEIN 5.2 GM/DL (6.4-8.2)
[2017-07-22] MEDS: SLF 3 ML SYR IV ×3 (06:00→22:00)
[2017-07-22] MEDS: LORazepam 2 MG/ML VIAL (J2060) IV ×3 (09:29→19:53)
[2017-07-22] MEDS: HEPARIN SOD (PORCINE) 5000 UNITS/ML VIAL SC (10:27)
[2017-07-22] MEDS: HumaLOG INSULIN (NovoLOG) PER UNIT SC ×4 (10:28→21:00)
[2017-07-22] MEDS: TORSEMIDE (DEMADEX) 50 MG PER 1/2 TAB PO (10:29)
[2017-07-22] MEDS: NADOLOL 20MG TABLET PO (10:29)
[2017-07-22] MEDS: OMEPRAZOLE 20 MG CAP PO (10:29)
[2017-07-22] MEDS: ASPIRIN 81 MG ENTERIC TAB PO (10:30)
[2017-07-22] MEDS: ZINC SULFATE 220 MG CAP PO (10:30)
[2017-07-22] MEDS: MULTIVITAMINS CHILDREN'S CHEWABLE TABLET PO ×3 (10:30→22:11)
[2017-07-22] MEDS: rifAXIMin 550 MG TAB (XIFAXAN) PO ×3 (10:30→22:11)
[2017-07-22] MEDS: MAGNESIUM OXIDE 400 MG TAB (MAG-OX) PO (10:30)
[2017-07-22] MEDS: FERROUS SULFATE 325MG TAB PO ×3 (10:31→22:11)
[2017-07-22] MEDS: SPIRONOLACTONE 50 MG TAB PO ×3 (10:31→22:11)
[2017-07-22] MEDS: THIAMINE 100 MG TAB PO (10:31)
[2017-07-22 10:50] LABS: BEDSIDE GLUCOSE 133 MG/DL (80-115)
[2017-07-22 13:03] LABS: CSF TUBE# GLU TUBE 2; CSF TUBE# TP TUBE 2; GLUCOSE CSF 75 MG/DL (40-75); TOTAL PROTEIN,CSF 63.6 MG/DL (15-45)
[2017-07-22 13:19] LABS: CSF RBC < 2 10^3/uL (<2)
[2017-07-22 13:22] LABS: CSF RBC < 2 10^3/uL (<2)
[2017-07-22 13:23] LABS: APPEARANCE, CSF CLEAR (CLEAR); COLOR, CSF COLORLESS (COLORLESS); CSF DIFF IF INDICATED? NO (NO); CSF TUBE# CELL CNT TUBE 4; CSF WBC 5 /uL (0-10)
[2017-07-22 13:24] LABS: APPEARANCE, CSF CLEAR (CLEAR); COLOR, CSF COLORLESS (COLORLESS); CSF DIFF IF INDICATED? NO (NO); CSF TUBE# CELL CNT TUBE 1; CSF WBC 3 /uL (0-10)
[2017-07-22] MEDS ORDERED: SODIUM CHLORIDE 0.9% INJ 10 ML SYR IV (13:45)
[2017-07-22 15:56] LABS: TYPE AND SCREEN 1
[2017-07-22 17:36] LABS: BEDSIDE GLUCOSE 127 MG/DL (80-115)
[2017-07-22] MEDS: SODIUM CHLORIDE 0.9% INJ 10 ML SYR IV (18:00)
[2017-07-22 22:15] LABS: BEDSIDE GLUCOSE 192 MG/DL (80-115)
[2017-07-23] MEDS: LACTULOSE 20 GM/30 ML SYRUP UD PO ×3 (05:12→21:00)
[2017-07-23] MEDS: SLF 3 ML SYR IV (05:12)
[2017-07-23] MEDS: SODIUM CHLORIDE 0.9% INJ 10 ML SYR IV ×2 (05:13→17:47)
[2017-07-23 05:33] LABS: HEMATOCRIT 26.1 % (36.0-47.0); HEMOGLOBIN 8.7 g/dl (12.0-15.5); MEAN CORPUSCULAR HEMOGLOBIN 29.7 pg (27.0-33.0); MEAN CORPUSCULAR HGB CONC 33.3 g/dl (32.0-36.5); MEAN CORPUSCULAR VOLUME 89.1 fl (80.0-96.0); RED BLOOD COUNT 2.93 10^6/uL (4.00-5.40); RED CELL DISTRIBUTION WIDTH 16.5 % (11.5-14.5); WHITE BLOOD COUNT 4.8 10^3/uL (4.0-10.0)
[2017-07-23 05:36] LABS: PLATELET COUNT, AUTOMATED 68 10^3/uL (150-450)
[2017-07-23 05:37] LABS: IMMATURE PLATELET FRACTION % 4.3 % (0.0-9.6)
[2017-07-23 05:40] LABS: INR 1.36; PROTHROMBIN TIME 17.1 SECONDS (12.4-14.5)
[2017-07-23 05:52] LABS: AMMONIA 38 uMOL/L (<32)
[2017-07-23 05:59] LABS: ALBUMIN 3.5 GM/DL (3.2-5.2); ALBUMIN/GLOBULIN RATIO 1.94 (1.00-1.93); ALKALINE PHOSPHATASE 188 U/L (45-117); ALT/SGPT 52 U/L (12-78); ANION GAP 8 MEQ/L (8-16); AST/SGOT 60 U/L (7-37); BILIRUBIN,TOTAL 1.3 MG/DL (0.2-1.0); BLOOD UREA NITROGEN 25 MG/DL (7-18); CALCIUM LEVEL 8.4 MG/DL (8.8-10.2); CARBON DIOXIDE LEVEL 32 MEQ/L (21-32); CHLORIDE LEVEL 98 MEQ/L (98-107); CREATININE FOR GFR 1.38 MG/DL (0.55-1.30); GLOMERULAR FILTRATION RATE 40.6 (>45); GLUCOSE, FASTING 143 MG/DL (70-100); MAGNESIUM LEVEL 1.9 MG/DL (1.8-2.4); POTASSIUM SERUM 3.8 MEQ/L (3.5-5.1); SODIUM LEVEL 138 MEQ/L (136-145); TOTAL PROTEIN 5.3 GM/DL (6.4-8.2)
[2017-07-23] MEDS: NADOLOL 20MG TABLET PO (09:00)
[2017-07-23] MEDS: HumaLOG INSULIN (NovoLOG) PER UNIT SC ×4 (09:16→21:00)
[2017-07-23] MEDS: MAGNESIUM OXIDE 400 MG TAB (MAG-OX) PO (09:22)
[2017-07-23] MEDS: OMEPRAZOLE 20 MG CAP PO (09:22)
[2017-07-23] MEDS: FERROUS SULFATE 325MG TAB PO ×2 (09:23→20:54)
[2017-07-23] MEDS: MULTIVITAMINS CHILDREN'S CHEWABLE TABLET PO ×2 (09:23→20:54)
[2017-07-23] MEDS: rifAXIMin 550 MG TAB (XIFAXAN) PO ×2 (09:23→20:54)
[2017-07-23] MEDS: SPIRONOLACTONE 50 MG TAB PO ×2 (09:23→20:54)
[2017-07-23] MEDS: TORSEMIDE (DEMADEX) 50 MG PER 1/2 TAB PO (09:23)
[2017-07-23] MEDS: THIAMINE 100 MG TAB PO (09:24)
[2017-07-23] MEDS: ZINC SULFATE 220 MG CAP PO (09:27)
[2017-07-23 11:16] LABS: TYPE AND SCREEN 1
[2017-07-23 12:02] LABS: BEDSIDE GLUCOSE 207 MG/DL (80-115)
[2017-07-23 20:02] LABS: BEDSIDE GLUCOSE 179 MG/DL (80-115)
[2017-07-23 20:56] LABS: BEDSIDE GLUCOSE 174 MG/DL (80-115)
[2017-07-24] MEDS: LORazepam 2 MG/ML VIAL (J2060) IV (00:08)
[2017-07-24] MEDS: SODIUM CHLORIDE 0.9% INJ 10 ML SYR IV (05:25)
[2017-07-24] MEDS: LACTULOSE 20 GM/30 ML SYRUP UD PO ×3 (05:25→20:35)
[2017-07-24 08:01] LABS: HEMATOCRIT 26.1 % (36.0-47.0); HEMOGLOBIN 8.8 g/dl (12.0-15.5); MEAN CORPUSCULAR HEMOGLOBIN 29.8 pg (27.0-33.0); MEAN CORPUSCULAR HGB CONC 33.7 g/dl (32.0-36.5); MEAN CORPUSCULAR VOLUME 88.5 fl (80.0-96.0); RED BLOOD COUNT 2.95 10^6/uL (4.00-5.40); RED CELL DISTRIBUTION WIDTH 16.8 % (11.5-14.5); WHITE BLOOD COUNT 4.9 10^3/uL (4.0-10.0)
[2017-07-24 08:07] LABS: PLATELET COUNT, AUTOMATED 68 10^3/uL (150-450)
[2017-07-24 08:08] LABS: IMMATURE PLATELET FRACTION % 5.2 % (0.0-9.6)
[2017-07-24 08:11] LABS: AMMONIA 40 uMOL/L (<32)
[2017-07-24 08:39] LABS: ALBUMIN 3.5 GM/DL (3.2-5.2); ALBUMIN/GLOBULIN RATIO 1.94 (1.00-1.93); ALKALINE PHOSPHATASE 220 U/L (45-117); ALT/SGPT 57 U/L (12-78); ANION GAP 8 MEQ/L (8-16); AST/SGOT 61 U/L (7-37); BILIRUBIN,TOTAL 1.6 MG/DL (0.2-1.0); BLOOD UREA NITROGEN 27 MG/DL (7-18); CALCIUM LEVEL 8.6 MG/DL (8.8-10.2); CARBON DIOXIDE LEVEL 32 MEQ/L (21-32); CHLORIDE LEVEL 98 MEQ/L (98-107); CREATININE FOR GFR 1.14 MG/DL (0.55-1.30); GLOMERULAR FILTRATION RATE 50.6 (>45); GLUCOSE, FASTING 125 MG/DL (70-100); POTASSIUM SERUM 3.5 MEQ/L (3.5-5.1); SODIUM LEVEL 138 MEQ/L (136-145); TOTAL PROTEIN 5.3 GM/DL (6.4-8.2)
[2017-07-24] MEDS: HumaLOG INSULIN (NovoLOG) PER UNIT SC ×4 (09:04→20:48)
[2017-07-24] MEDS: SPIRONOLACTONE 50 MG TAB PO ×2 (09:11→20:35)
[2017-07-24] MEDS: MULTIVITAMINS CHILDREN'S CHEWABLE TABLET PO ×2 (09:11→20:35)
[2017-07-24] MEDS: OMEPRAZOLE 20 MG CAP PO (09:11)
[2017-07-24] MEDS: THIAMINE 100 MG TAB PO (09:11)
[2017-07-24] MEDS: FERROUS SULFATE 325MG TAB PO ×2 (09:11→20:35)
[2017-07-24] MEDS: MAGNESIUM OXIDE 400 MG TAB (MAG-OX) PO (09:11)
[2017-07-24] MEDS: TORSEMIDE (DEMADEX) 50 MG PER 1/2 TAB PO (09:11)
[2017-07-24] MEDS: ZINC SULFATE 220 MG CAP PO (09:11)
[2017-07-24] MEDS: rifAXIMin 550 MG TAB (XIFAXAN) PO ×2 (09:11→20:35)
[2017-07-24] MEDS: NADOLOL 20MG TABLET PO (10:24)
[2017-07-24 11:32] LABS: BEDSIDE GLUCOSE 187 MG/DL (80-115)
[2017-07-24 17:12] LABS: BEDSIDE GLUCOSE 137 MG/DL (80-115)
[2017-07-24] MEDS ORDERED: SLF 3 ML SYR IV (17:15)
[2017-07-24] MEDS: SLF 3 ML SYR IV (20:48)
[2017-07-24 21:03] LABS: BEDSIDE GLUCOSE 160 MG/DL (80-115)
[2017-07-25] MEDS: LACTULOSE 20 GM/30 ML SYRUP UD PO ×3 (04:52→21:05)
[2017-07-25] MEDS: SLF 3 ML SYR IV ×3 (04:53→20:21)
[2017-07-25 05:23] LABS: HEMATOCRIT 28.5 % (36.0-47.0); HEMOGLOBIN 9.6 g/dl (12.0-15.5); MEAN CORPUSCULAR HGB CONC 33.7 g/dl (32.0-36.5); MEAN CORPUSCULAR VOLUME 89.1 fl (80.0-96.0); PLATELET COUNT, AUTOMATED 81 10^3/uL (150-450); WHITE BLOOD COUNT 5.5 10^3/uL (4.0-10.0)
[2017-07-25 05:37] LABS: AMMONIA 24 uMOL/L (<32)
[2017-07-25 05:54] LABS: ALBUMIN 3.3 GM/DL (3.2-5.2); ALBUMIN/GLOBULIN RATIO 1.57 (1.00-1.93); ALKALINE PHOSPHATASE 249 U/L (45-117); ALT/SGPT 60 U/L (12-78); ANION GAP 8 MEQ/L (8-16); AST/SGOT 65 U/L (7-37); BILIRUBIN,TOTAL 1.4 MG/DL (0.2-1.0); BLOOD UREA NITROGEN 31 MG/DL (7-18); CALCIUM LEVEL 8.6 MG/DL (8.8-10.2); CARBON DIOXIDE LEVEL 32 MEQ/L (21-32); CHLORIDE LEVEL 99 MEQ/L (98-107); CREATININE FOR GFR 1.21 MG/DL (0.55-1.30); GLOMERULAR FILTRATION RATE 47.2 (>45); GLUCOSE, FASTING 138 MG/DL (70-100); POTASSIUM SERUM 3.5 MEQ/L (3.5-5.1); SODIUM LEVEL 139 MEQ/L (136-145); TOTAL PROTEIN 5.4 GM/DL (6.4-8.2)
[2017-07-25] MEDS: OMEPRAZOLE 20 MG CAP PO (08:47)
[2017-07-25] MEDS: MULTIVITAMINS CHILDREN'S CHEWABLE TABLET PO ×2 (08:47→20:17)
[2017-07-25] MEDS: NADOLOL 20MG TABLET PO (08:47)
[2017-07-25] MEDS: TORSEMIDE (DEMADEX) 50 MG PER 1/2 TAB PO (08:47)
[2017-07-25] MEDS: FERROUS SULFATE 325MG TAB PO ×2 (08:47→20:17)
[2017-07-25] MEDS: SPIRONOLACTONE 50 MG TAB PO ×2 (08:47→20:17)
[2017-07-25] MEDS: ZINC SULFATE 220 MG CAP PO (08:47)
[2017-07-25] MEDS: MAGNESIUM OXIDE 400 MG TAB (MAG-OX) PO (08:48)
[2017-07-25] MEDS: THIAMINE 100 MG TAB PO (08:48)
[2017-07-25] MEDS: HumaLOG INSULIN (NovoLOG) PER UNIT SC ×4 (08:48→20:17)
[2017-07-25] MEDS: rifAXIMin 550 MG TAB (XIFAXAN) PO ×2 (08:48→20:17)
[2017-07-25 12:00] LABS: BEDSIDE GLUCOSE 210 MG/DL (80-115)
[2017-07-25 14:13] LABS: ANTI HU ANTIBODY <1:10 titer (.); CERULOPLASMIN 21.4 mg/dL (19.0-39.0); COPPER PLASMA 103 ug/dL (72-166); N-METHYL-D-ASPARTATE RECPT IGG <1:10 (<1:10)
[2017-07-25 17:16] LABS: BEDSIDE GLUCOSE 170 MG/DL (80-115)
[2017-07-25 20:21] LABS: BEDSIDE GLUCOSE 67 MG/DL (80-115)
[2017-07-25 22:46] LABS: BEDSIDE GLUCOSE 210 MG/DL (80-115)
[2017-07-26 04:04] LABS: HEMATOCRIT 28.1 % (36.0-47.0); HEMOGLOBIN 9.5 g/dl (12.0-15.5); MEAN CORPUSCULAR HGB CONC 33.8 g/dl (32.0-36.5); MEAN CORPUSCULAR VOLUME 88.6 fl (80.0-96.0); PLATELET COUNT, AUTOMATED 101 10^3/uL (150-450); RED BLOOD COUNT 3.17 10^6/uL (4.00-5.40); RED CELL DISTRIBUTION WIDTH 16.8 % (11.5-14.5); WHITE BLOOD COUNT 6.5 10^3/uL (4.0-10.0)
[2017-07-26 04:18] LABS: AMMONIA 35 uMOL/L (<32)
[2017-07-26 04:24] LABS: ALBUMIN 3.2 GM/DL (3.2-5.2); ALBUMIN/GLOBULIN RATIO 1.52 (1.00-1.93); ALKALINE PHOSPHATASE 304 U/L (45-117); ALT/SGPT 68 U/L (12-78); ANION GAP 7 MEQ/L (8-16); AST/SGOT 72 U/L (7-37); BILIRUBIN,TOTAL 1.3 MG/DL (0.2-1.0); BLOOD UREA NITROGEN 33 MG/DL (7-18); CALCIUM LEVEL 8.5 MG/DL (8.8-10.2); CARBON DIOXIDE LEVEL 33 MEQ/L (21-32); CHLORIDE LEVEL 98 MEQ/L (98-107); CREATININE FOR GFR 1.12 MG/DL (0.55-1.30); GLOMERULAR FILTRATION RATE 51.7 (>45); GLUCOSE, FASTING 127 MG/DL (70-100); POTASSIUM SERUM 3.8 MEQ/L (3.5-5.1); SODIUM LEVEL 138 MEQ/L (136-145); TOTAL PROTEIN 5.3 GM/DL (6.4-8.2)
[2017-07-26] MEDS: LACTULOSE 20 GM/30 ML SYRUP UD PO ×3 (06:06→21:04)
[2017-07-26] MEDS: SLF 3 ML SYR IV ×3 (06:07→21:06)
[2017-07-26] MEDS: TORSEMIDE (DEMADEX) 50 MG PER 1/2 TAB PO (08:17)
[2017-07-26] MEDS: THIAMINE 100 MG TAB PO (08:18)
[2017-07-26] MEDS: NADOLOL 20MG TABLET PO (08:18)
[2017-07-26] MEDS: SPIRONOLACTONE 50 MG TAB PO ×2 (08:18→21:04)
[2017-07-26] MEDS: ZINC SULFATE 220 MG CAP PO (08:18)
[2017-07-26] MEDS: MULTIVITAMINS CHILDREN'S CHEWABLE TABLET PO ×2 (08:18→21:04)
[2017-07-26] MEDS: MAGNESIUM OXIDE 400 MG TAB (MAG-OX) PO (08:18)
[2017-07-26] MEDS: rifAXIMin 550 MG TAB (XIFAXAN) PO ×2 (08:18→21:04)
[2017-07-26] MEDS: FERROUS SULFATE 325MG TAB PO ×3 (08:19→21:28)
[2017-07-26] MEDS: OMEPRAZOLE 20 MG CAP PO (08:19)
[2017-07-26] MEDS: HumaLOG INSULIN (NovoLOG) PER UNIT SC ×4 (08:19→21:05)
[2017-07-26] MEDS: ONDANSETRON 4MG/2ML VIAL (J2405) IV (09:12)
[2017-07-26 12:02] LABS: BEDSIDE GLUCOSE 241 MG/DL (80-115)
[2017-07-26 16:56] LABS: BEDSIDE GLUCOSE 163 MG/DL (80-115)
[2017-07-26 21:05] LABS: BEDSIDE GLUCOSE 197 MG/DL (80-115)
[2017-07-27 04:50] LABS: HEMATOCRIT 27.6 % (36.0-47.0); HEMOGLOBIN 9.3 g/dl (12.0-15.5); MEAN CORPUSCULAR HGB CONC 33.7 g/dl (32.0-36.5); PLATELET COUNT, AUTOMATED 107 10^3/uL (150-450); RED CELL DISTRIBUTION WIDTH 17.2 % (11.5-14.5); WHITE BLOOD COUNT 6.2 10^3/uL (4.0-10.0)
[2017-07-27 05:06] LABS: AMMONIA 26 uMOL/L (<32)
[2017-07-27 05:08] LABS: ALBUMIN 3.2 GM/DL (3.2-5.2); ALBUMIN/GLOBULIN RATIO 1.45 (1.00-1.93); ALKALINE PHOSPHATASE 304 U/L (45-117); ALT/SGPT 67 U/L (12-78); ANION GAP 7 MEQ/L (8-16); AST/SGOT 62 U/L (7-37); BILIRUBIN,TOTAL 1.3 MG/DL (0.2-1.0); BLOOD UREA NITROGEN 33 MG/DL (7-18); CALCIUM LEVEL 8.7 MG/DL (8.8-10.2); CARBON DIOXIDE LEVEL 35 MEQ/L (21-32); CHLORIDE LEVEL 95 MEQ/L (98-107); CREATININE FOR GFR 1.17 MG/DL (0.55-1.30); GLOMERULAR FILTRATION RATE 49.1 (>45); GLUCOSE, FASTING 154 MG/DL (70-100); SODIUM LEVEL 137 MEQ/L (136-145); TOTAL PROTEIN 5.4 GM/DL (6.4-8.2)
[2017-07-27] MEDS: LACTULOSE 20 GM/30 ML SYRUP UD PO ×3 (06:20→22:46)
[2017-07-27] MEDS: SLF 3 ML SYR IV ×3 (06:20→22:00)
[2017-07-27] MEDS: MAGNESIUM OXIDE 400 MG TAB (MAG-OX) PO (08:23)
[2017-07-27] MEDS: HumaLOG INSULIN (NovoLOG) PER UNIT SC ×4 (08:23→22:48)
[2017-07-27] MEDS: THIAMINE 100 MG TAB PO (08:24)
[2017-07-27] MEDS: MULTIVITAMINS CHILDREN'S CHEWABLE TABLET PO ×2 (08:24→22:46)
[2017-07-27] MEDS: ZINC SULFATE 220 MG CAP PO (08:24)
[2017-07-27] MEDS: FERROUS SULFATE 325MG TAB PO ×2 (08:24→22:47)
[2017-07-27] MEDS: rifAXIMin 550 MG TAB (XIFAXAN) PO ×2 (08:24→22:46)
[2017-07-27] MEDS: OMEPRAZOLE 20 MG CAP PO (08:25)
[2017-07-27] MEDS: SPIRONOLACTONE 50 MG TAB PO ×2 (08:25→22:47)
[2017-07-27] MEDS: TORSEMIDE (DEMADEX) 50 MG PER 1/2 TAB PO (08:25)
[2017-07-27] MEDS: NADOLOL 20MG TABLET PO (08:25)
[2017-07-27 10:35] LABS: BEDSIDE GLUCOSE 144 MG/DL (80-115)
[2017-07-27 12:23] LABS: BEDSIDE GLUCOSE 225 MG/DL (80-115)
[2017-07-28 01:56] LABS: BEDSIDE GLUCOSE 168 MG/DL (80-115)
[2017-07-28 01:56] LABS: BEDSIDE GLUCOSE 275 MG/DL (80-115)
[2017-07-28] MEDS: LACTULOSE 20 GM/30 ML SYRUP UD PO ×3 (05:30→20:11)
[2017-07-28] MEDS: SLF 3 ML SYR IV ×3 (05:30→22:00)
[2017-07-28 05:52] LABS: HEMATOCRIT 28.4 % (36.0-47.0); HEMOGLOBIN 9.5 g/dl (12.0-15.5); MEAN CORPUSCULAR HEMOGLOBIN 29.8 pg (27.0-33.0); MEAN CORPUSCULAR HGB CONC 33.5 g/dl (32.0-36.5); PLATELET COUNT, AUTOMATED 112 10^3/uL (150-450); RED BLOOD COUNT 3.19 10^6/uL (4.00-5.40); RED CELL DISTRIBUTION WIDTH 17.2 % (11.5-14.5); WHITE BLOOD COUNT 6.1 10^3/uL (4.0-10.0)
[2017-07-28 06:20] LABS: ALBUMIN 3.1 GM/DL (3.2-5.2); ALBUMIN/GLOBULIN RATIO 1.41 (1.00-1.93); ALKALINE PHOSPHATASE 302 U/L (45-117); ALT/SGPT 64 U/L (12-78); ANION GAP 6 MEQ/L (8-16); AST/SGOT 59 U/L (7-37); BILIRUBIN,TOTAL 1.5 MG/DL (0.2-1.0); BLOOD UREA NITROGEN 34 MG/DL (7-18); CALCIUM LEVEL 8.8 MG/DL (8.8-10.2); CARBON DIOXIDE LEVEL 35 MEQ/L (21-32); CHLORIDE LEVEL 95 MEQ/L (98-107); CREATININE FOR GFR 1.24 MG/DL (0.55-1.30); GLOMERULAR FILTRATION RATE 45.9 (>45); GLUCOSE, FASTING 151 MG/DL (70-100); POTASSIUM SERUM 4.3 MEQ/L (3.5-5.1); SODIUM LEVEL 136 MEQ/L (136-145); TOTAL PROTEIN 5.3 GM/DL (6.4-8.2)
[2017-07-28 06:20] LABS: AMMONIA 17 uMOL/L (<32)
[2017-07-28] MEDS: rifAXIMin 550 MG TAB (XIFAXAN) PO ×2 (10:48→22:28)
[2017-07-28] MEDS: MAGNESIUM OXIDE 400 MG TAB (MAG-OX) PO (10:48)
[2017-07-28] MEDS: MULTIVITAMINS CHILDREN'S CHEWABLE TABLET PO ×2 (10:48→22:28)
[2017-07-28] MEDS: ZINC SULFATE 220 MG CAP PO (10:48)
[2017-07-28] MEDS: THIAMINE 100 MG TAB PO (10:48)
[2017-07-28] MEDS: OMEPRAZOLE 20 MG CAP PO (10:48)
[2017-07-28] MEDS: FERROUS SULFATE 325MG TAB PO ×2 (10:48→22:29)
[2017-07-28] MEDS: TORSEMIDE (DEMADEX) 50 MG PER 1/2 TAB PO (10:49)
[2017-07-28] MEDS: NADOLOL 20MG TABLET PO (10:49)
[2017-07-28] MEDS: SPIRONOLACTONE 50 MG TAB PO ×2 (10:49→22:29)
[2017-07-28] MEDS: HumaLOG INSULIN (NovoLOG) PER UNIT SC ×4 (10:50→22:29)
[2017-07-28 21:04] LABS: BEDSIDE GLUCOSE 252 MG/DL (80-115)
[2017-07-29 02:54] LABS: BEDSIDE GLUCOSE 192 MG/DL (80-115)
[2017-07-29 02:54] LABS: BEDSIDE GLUCOSE 191 MG/DL (80-115)
[2017-07-29 06:11] LABS: HEMOGLOBIN 10.3 g/dl (12.0-15.5); MEAN CORPUSCULAR HEMOGLOBIN 29.9 pg (27.0-33.0); MEAN CORPUSCULAR HGB CONC 33.2 g/dl (32.0-36.5); MEAN CORPUSCULAR VOLUME 90.1 fl (80.0-96.0); PLATELET COUNT, AUTOMATED 138 10^3/uL (150-450); RED BLOOD COUNT 3.44 10^6/uL (4.00-5.40); RED CELL DISTRIBUTION WIDTH 17.2 % (11.5-14.5); WHITE BLOOD COUNT 7.8 10^3/uL (4.0-10.0)
[2017-07-29] MEDS: LACTULOSE 20 GM/30 ML SYRUP UD PO ×3 (06:21→22:52)
[2017-07-29] MEDS: SLF 3 ML SYR IV ×3 (06:21→22:53)
[2017-07-29 06:37] LABS: AMMONIA 20 uMOL/L (<32)
[2017-07-29 06:43] LABS: ALBUMIN 3.2 GM/DL (3.2-5.2); ALBUMIN/GLOBULIN RATIO 1.45 (1.00-1.93); ALKALINE PHOSPHATASE 329 U/L (45-117); ALT/SGPT 63 U/L (12-78); ANION GAP 7 MEQ/L (8-16); AST/SGOT 57 U/L (7-37); BILIRUBIN,TOTAL 1.2 MG/DL (0.2-1.0); BLOOD UREA NITROGEN 38 MG/DL (7-18); CALCIUM LEVEL 8.8 MG/DL (8.8-10.2); CARBON DIOXIDE LEVEL 35 MEQ/L (21-32); CHLORIDE LEVEL 91 MEQ/L (98-107); CREATININE FOR GFR 1.24 MG/DL (0.55-1.30); GLOMERULAR FILTRATION RATE 45.9 (>45); GLUCOSE, FASTING 164 MG/DL (70-100); POTASSIUM SERUM 4.5 MEQ/L (3.5-5.1); SODIUM LEVEL 133 MEQ/L (136-145); TOTAL PROTEIN 5.4 GM/DL (6.4-8.2)
[2017-07-29 06:50] LABS: VOLTAGE-GATED POTASSIUM CHANNE SEE SEPARATE REPORT
[2017-07-29 06:50] LABS: INR 1.22; PROTHROMBIN TIME 15.6 SECONDS (12.4-14.5)
[2017-07-29] MEDS: HumaLOG INSULIN (NovoLOG) PER UNIT SC ×4 (08:18→23:00)
[2017-07-29] MEDS: NADOLOL 20MG TABLET PO (08:19)
[2017-07-29] MEDS: rifAXIMin 550 MG TAB (XIFAXAN) PO ×2 (08:19→22:59)
[2017-07-29] MEDS: FERROUS SULFATE 325MG TAB PO ×2 (08:20→22:59)
[2017-07-29] MEDS: OMEPRAZOLE 20 MG CAP PO (08:20)
[2017-07-29] MEDS: SPIRONOLACTONE 50 MG TAB PO ×2 (08:20→23:29)
[2017-07-29] MEDS: THIAMINE 100 MG TAB PO (08:20)
[2017-07-29] MEDS: MAGNESIUM OXIDE 400 MG TAB (MAG-OX) PO (08:20)
[2017-07-29] MEDS: MULTIVITAMINS CHILDREN'S CHEWABLE TABLET PO ×2 (08:20→22:59)
[2017-07-29] MEDS: TORSEMIDE (DEMADEX) 50 MG PER 1/2 TAB PO (08:20)
[2017-07-29] MEDS: ZINC SULFATE 220 MG CAP PO (08:20)
[2017-07-29 11:49] LABS: BEDSIDE GLUCOSE 149 MG/DL (80-115)
[2017-07-29] MEDS ORDERED: LIDOCAINE 1% MDV 20ML VIAL As Ordered (13:59)
[2017-07-29 16:31] LABS: BEDSIDE GLUCOSE 181 MG/DL (80-115)
[2017-07-29 16:39] LABS: TYPE AND SCREEN 1
[2017-07-29 21:01] LABS: BEDSIDE GLUCOSE 274 MG/DL (80-115)
[2017-07-30] MEDS: SLF 3 ML SYR IV ×3 (05:45→22:00)
[2017-07-30] MEDS: LACTULOSE 20 GM/30 ML SYRUP UD PO ×3 (05:45→22:45)
[2017-07-30 06:05] LABS: HEMATOCRIT 29.8 % (36.0-47.0); HEMOGLOBIN 9.8 g/dl (12.0-15.5); MEAN CORPUSCULAR HEMOGLOBIN 29.4 pg (27.0-33.0); MEAN CORPUSCULAR HGB CONC 32.9 g/dl (32.0-36.5); MEAN CORPUSCULAR VOLUME 89.5 fl (80.0-96.0); PLATELET COUNT, AUTOMATED 113 10^3/uL (150-450); RED BLOOD COUNT 3.33 10^6/uL (4.00-5.40); RED CELL DISTRIBUTION WIDTH 16.7 % (11.5-14.5); WHITE BLOOD COUNT 5.4 10^3/uL (4.0-10.0)
[2017-07-30 06:39] LABS: PHOSPHORUS LEVEL 4.1 MG/DL (2.5-4.9)
[2017-07-30 06:39] LABS: MAGNESIUM LEVEL 2.3 MG/DL (1.8-2.4)
[2017-07-30 06:43] LABS: ALBUMIN 3.8 GM/DL (3.2-5.2); ALBUMIN/GLOBULIN RATIO 1.81 (1.00-1.93); ALKALINE PHOSPHATASE 308 U/L (45-117); ALT/SGPT 55 U/L (12-78); ANION GAP 6 MEQ/L (8-16); AST/SGOT 44 U/L (7-37); BILIRUBIN,TOTAL 1.7 MG/DL (0.2-1.0); BLOOD UREA NITROGEN 44 MG/DL (7-18); CALCIUM LEVEL 9.2 MG/DL (8.8-10.2); CARBON DIOXIDE LEVEL 38 MEQ/L (21-32); CHLORIDE LEVEL 91 MEQ/L (98-107); CREATININE FOR GFR 1.23 MG/DL (0.55-1.30); GLOMERULAR FILTRATION RATE 46.4 (>45); GLUCOSE, FASTING 139 MG/DL (70-100); PREALBUMIN 14.9 MG/DL (20.0-40.0); SODIUM LEVEL 135 MEQ/L (136-145); TOTAL PROTEIN 5.9 GM/DL (6.4-8.2)
[2017-07-30] MEDS: NADOLOL 20MG TABLET PO (08:13)
[2017-07-30 09:21] LABS: HEPATITIS B SURFACE ANTIGEN NEGATIVE (NEGATIVE)
[2017-07-30 09:44] LABS: HEPATITIS B SURFACE ANTIBODY NEGATIVE (POSITIVE)
[2017-07-30] MEDS: HumaLOG INSULIN (NovoLOG) PER UNIT SC ×4 (10:04→21:00)
[2017-07-30] MEDS: OMEPRAZOLE 20 MG CAP PO (10:05)
[2017-07-30] MEDS: MAGNESIUM OXIDE 400 MG TAB (MAG-OX) PO (10:05)
[2017-07-30] MEDS: ZINC SULFATE 220 MG CAP PO (10:05)
[2017-07-30] MEDS: THIAMINE 100 MG TAB PO (10:05)
[2017-07-30] MEDS: FERROUS SULFATE 325MG TAB PO ×2 (10:06→22:45)
[2017-07-30] MEDS: SPIRONOLACTONE 50 MG TAB PO ×2 (10:06→22:45)
[2017-07-30] MEDS: rifAXIMin 550 MG TAB (XIFAXAN) PO ×2 (10:06→22:45)
[2017-07-30] MEDS: TORSEMIDE (DEMADEX) 50 MG PER 1/2 TAB PO (10:06)
[2017-07-30] MEDS: MULTIVITAMINS CHILDREN'S CHEWABLE TABLET PO ×2 (10:06→22:45)
[2017-07-30] MEDS ORDERED: ISOVUE-370 76% 100ML VIAL (Q9967) As Ordered (10:32)
[2017-07-30 11:53] LABS: BEDSIDE GLUCOSE 321 MG/DL (80-115)
[2017-07-30 16:45] LABS: BEDSIDE GLUCOSE 156 MG/DL (80-115)
[2017-07-30 20:44] LABS: BEDSIDE GLUCOSE 205 MG/DL (80-115)
[2017-07-30 21:25] LABS: ANION GAP 9 MEQ/L (8-16); BLOOD UREA NITROGEN 41 MG/DL (7-18); CALCIUM LEVEL 8.8 MG/DL (8.8-10.2); CARBON DIOXIDE LEVEL 33 MEQ/L (21-32); CHLORIDE LEVEL 91 MEQ/L (98-107); CK-MB VALUE MASS < 1.0 NG/ML (<3.6); CPK CREATINE PHOSPHOKINASE 20 U/L (26-192); CREATININE FOR GFR 1.23 MG/DL (0.55-1.30); GLOMERULAR FILTRATION RATE 46.4 (>45); GLUCOSE, FASTING 167 MG/DL (70-100); MAGNESIUM LEVEL 2.5 MG/DL (1.8-2.4); PHOSPHORUS LEVEL 3.4 MG/DL (2.5-4.9); POTASSIUM SERUM 3.8 MEQ/L (3.5-5.1); SODIUM LEVEL 133 MEQ/L (136-145); TROPONIN I < 0.02 NG/ML (< 0.10)
[2017-07-31 06:00] LABS: HEMATOCRIT 26.8 % (36.0-47.0); HEMOGLOBIN 9.2 g/dl (12.0-15.5); MEAN CORPUSCULAR HEMOGLOBIN 30.5 pg (27.0-33.0); MEAN CORPUSCULAR HGB CONC 34.3 g/dl (32.0-36.5); MEAN CORPUSCULAR VOLUME 88.7 fl (80.0-96.0); PLATELET COUNT, AUTOMATED 128 10^3/uL (150-450); RED BLOOD COUNT 3.02 10^6/uL (4.00-5.40); WHITE BLOOD COUNT 5.8 10^3/uL (4.0-10.0)
[2017-07-31] MEDS: LACTULOSE 20 GM/30 ML SYRUP UD PO ×3 (06:17→20:49)
[2017-07-31] MEDS: SLF 3 ML SYR IV ×3 (06:18→20:49)
[2017-07-31 06:23] LABS: ALBUMIN 3.3 GM/DL (3.2-5.2); ALKALINE PHOSPHATASE 336 U/L (45-117); ALT/SGPT 56 U/L (12-78); ANION GAP 9 MEQ/L (8-16); AST/SGOT 61 U/L (7-37); BILIRUBIN,TOTAL 1.1 MG/DL (0.2-1.0); BLOOD UREA NITROGEN 38 MG/DL (7-18); CALCIUM LEVEL 8.7 MG/DL (8.8-10.2); CARBON DIOXIDE LEVEL 33 MEQ/L (21-32); CHLORIDE LEVEL 93 MEQ/L (98-107); CREATININE FOR GFR 1.19 MG/DL (0.55-1.30); GLOMERULAR FILTRATION RATE 48.2 (>45); GLUCOSE, FASTING 147 MG/DL (70-100); POTASSIUM SERUM 3.9 MEQ/L (3.5-5.1); SODIUM LEVEL 135 MEQ/L (136-145); TOTAL PROTEIN 5.5 GM/DL (6.4-8.2)
[2017-07-31] MEDS: rifAXIMin 550 MG TAB (XIFAXAN) PO ×2 (08:36→20:47)
[2017-07-31] MEDS: MAGNESIUM OXIDE 400 MG TAB (MAG-OX) PO (08:36)
[2017-07-31] MEDS: OMEPRAZOLE 20 MG CAP PO (08:36)
[2017-07-31] MEDS: FERROUS SULFATE 325MG TAB PO ×2 (08:36→20:47)
[2017-07-31] MEDS: NADOLOL 20MG TABLET PO (08:37)
[2017-07-31] MEDS: SPIRONOLACTONE 50 MG TAB PO ×2 (08:37→20:47)
[2017-07-31] MEDS: CYANOCOBALAMIN 500 MCG TAB PO (08:37)
[2017-07-31] MEDS: ZINC SULFATE 220 MG CAP PO (08:37)
[2017-07-31] MEDS: MULTIVITAMINS CHILDREN'S CHEWABLE TABLET PO ×2 (08:37→20:48)
[2017-07-31] MEDS: TORSEMIDE (DEMADEX) 50 MG PER 1/2 TAB PO (08:37)
[2017-07-31] MEDS: FOLIC ACID 1 MG TAB PO (08:37)
[2017-07-31] MEDS: THIAMINE 100 MG TAB PO (08:37)
[2017-07-31] MEDS: HumaLOG INSULIN (NovoLOG) PER UNIT SC ×4 (08:38→20:48)
[2017-07-31 16:58] LABS: BEDSIDE GLUCOSE 107 MG/DL (80-115)
[2017-07-31 17:00] LABS: BEDSIDE GLUCOSE 160 MG/DL (80-115)
[2017-07-31 17:20] LABS: BEDSIDE GLUCOSE 172 MG/DL (80-115)
[2017-07-31 20:26] LABS: BEDSIDE GLUCOSE 227 MG/DL (80-115)
[2017-08-01 00:08] LABS: ANTI-SMOOTH MUSCLE ANTIBODY 2 Units (0-19)
[2017-08-01 00:08] LABS: ANTI-MITOCHONDRIAL ANTIBODY 5.1 Units (0.0-20.0); CERULOPLASMIN 25.1 mg/dL (19.0-39.0); HEPATITIS A IgG TOTAL Negative (Negative); LIVER-KIDNEY MICROSOMAL ABY 0.6 Units (0.0-20.0)
[2017-08-01 05:44] LABS: BEDSIDE GLUCOSE 154 MG/DL (80-115)
[2017-08-01] MEDS: LACTULOSE 20 GM/30 ML SYRUP UD PO ×3 (06:00→21:24)
[2017-08-01] MEDS: SLF 3 ML SYR IV ×3 (06:00→21:25)
[2017-08-01] MEDS: NADOLOL 20MG TABLET PO (07:43)
[2017-08-01] MEDS: FERROUS SULFATE 325MG TAB PO ×2 (07:44→21:24)
[2017-08-01] MEDS: OMEPRAZOLE 20 MG CAP PO (07:44)
[2017-08-01] MEDS: rifAXIMin 550 MG TAB (XIFAXAN) PO ×2 (07:44→21:24)
[2017-08-01] MEDS: SPIRONOLACTONE 50 MG TAB PO ×2 (07:44→21:24)
[2017-08-01] MEDS: CYANOCOBALAMIN 500 MCG TAB PO (07:44)
[2017-08-01] MEDS: FOLIC ACID 1 MG TAB PO (07:44)
[2017-08-01] MEDS: MAGNESIUM OXIDE 400 MG TAB (MAG-OX) PO (07:44)
[2017-08-01] MEDS: TORSEMIDE (DEMADEX) 50 MG PER 1/2 TAB PO (07:45)
[2017-08-01] MEDS: MULTIVITAMINS CHILDREN'S CHEWABLE TABLET PO ×2 (07:45→21:24)
[2017-08-01] MEDS: ZINC SULFATE 220 MG CAP PO (07:45)
[2017-08-01] MEDS: HumaLOG INSULIN (NovoLOG) PER UNIT SC ×4 (07:45→21:24)
[2017-08-01] MEDS: THIAMINE 100 MG TAB PO (07:45)
[2017-08-01 11:47] LABS: BEDSIDE GLUCOSE 169 MG/DL (80-115)
[2017-08-01 16:54] LABS: BEDSIDE GLUCOSE 207 MG/DL (80-115)
[2017-08-01 20:41] LABS: BEDSIDE GLUCOSE 228 MG/DL (80-115)
[2017-08-02 00:06] LABS: APTT 32.9 sec (.); Anticardiolipin Ab, IgA <10 APL (.); CERULOPLASMIN 31.1 mg/dL (19.0-39.0); DRVTT Screen Seconds 40.6 sec (.)
[2017-08-02] MEDS: SLF 3 ML SYR IV ×3 (06:04→22:05)
[2017-08-02] MEDS: LACTULOSE 20 GM/30 ML SYRUP UD PO ×3 (06:04→22:05)
[2017-08-02 08:33] LABS: HEMATOCRIT 33.7 % (36.0-47.0); HEMOGLOBIN 11.1 g/dl (12.0-15.5); MEAN CORPUSCULAR HEMOGLOBIN 29.8 pg (27.0-33.0); MEAN CORPUSCULAR HGB CONC 32.9 g/dl (32.0-36.5); MEAN CORPUSCULAR VOLUME 90.6 fl (80.0-96.0); PLATELET COUNT, AUTOMATED 166 10^3/uL (150-450); RED BLOOD COUNT 3.72 10^6/uL (4.00-5.40); RED CELL DISTRIBUTION WIDTH 17.2 % (11.5-14.5); WHITE BLOOD COUNT 7.8 10^3/uL (4.0-10.0)
[2017-08-02] MEDS: NADOLOL 20MG TABLET PO (09:00)
[2017-08-02 09:05] LABS: ALBUMIN 3.6 GM/DL (3.2-5.2); ALKALINE PHOSPHATASE 450 U/L (45-117); ALT/SGPT 100 U/L (12-78); ANION GAP 7 MEQ/L (8-16); AST/SGOT 115 U/L (7-37); BILIRUBIN,TOTAL 1.2 MG/DL (0.2-1.0); BLOOD UREA NITROGEN 43 MG/DL (7-18); CARBON DIOXIDE LEVEL 34 MEQ/L (21-32); CHLORIDE LEVEL 94 MEQ/L (98-107); CREATININE FOR GFR 1.18 MG/DL (0.55-1.30); GLOMERULAR FILTRATION RATE 48.6 (>45); GLUCOSE, FASTING 158 MG/DL (70-100); MAGNESIUM LEVEL 2.6 MG/DL (1.8-2.4); POTASSIUM SERUM 4.3 MEQ/L (3.5-5.1); PREALBUMIN 17.8 MG/DL (20.0-40.0); SODIUM LEVEL 135 MEQ/L (136-145)
[2017-08-02] MEDS: CYANOCOBALAMIN 500 MCG TAB PO (09:35)
[2017-08-02] MEDS: OMEPRAZOLE 20 MG CAP PO (09:35)
[2017-08-02] MEDS: MULTIVITAMINS CHILDREN'S CHEWABLE TABLET PO ×2 (09:35→22:04)
[2017-08-02] MEDS: THIAMINE 100 MG TAB PO (09:35)
[2017-08-02] MEDS: MAGNESIUM OXIDE 400 MG TAB (MAG-OX) PO (09:35)
[2017-08-02] MEDS: ZINC SULFATE 220 MG CAP PO (09:35)
[2017-08-02] MEDS: SPIRONOLACTONE 50 MG TAB PO ×2 (09:35→22:05)
[2017-08-02] MEDS: TORSEMIDE (DEMADEX) 50 MG PER 1/2 TAB PO (09:36)
[2017-08-02] MEDS: rifAXIMin 550 MG TAB (XIFAXAN) PO ×2 (09:36→22:05)
[2017-08-02] MEDS: FOLIC ACID 1 MG TAB PO (09:36)
[2017-08-02] MEDS: FERROUS SULFATE 325MG TAB PO ×2 (09:36→22:04)
[2017-08-02] MEDS: HumaLOG INSULIN (NovoLOG) PER UNIT SC ×4 (09:41→21:42)
[2017-08-02 11:56] LABS: AMMONIA 19 uMOL/L (<32)
[2017-08-03] MEDS: SLF 3 ML SYR IV ×3 (05:13→20:44)
[2017-08-03] MEDS: LACTULOSE 20 GM/30 ML SYRUP UD PO ×3 (05:13→20:43)
[2017-08-03 06:28] LABS: HEMATOCRIT 29.1 % (36.0-47.0); HEMOGLOBIN 9.7 g/dl (12.0-15.5); MEAN CORPUSCULAR HEMOGLOBIN 29.9 pg (27.0-33.0); MEAN CORPUSCULAR HGB CONC 33.3 g/dl (32.0-36.5); MEAN CORPUSCULAR VOLUME 89.8 fl (80.0-96.0); PLATELET COUNT, AUTOMATED 139 10^3/uL (150-450); RED BLOOD COUNT 3.24 10^6/uL (4.00-5.40); WHITE BLOOD COUNT 6.5 10^3/uL (4.0-10.0)
[2017-08-03 06:41] LABS: ALKALINE PHOSPHATASE 419 U/L (45-117); ALT/SGPT 87 U/L (12-78); ANION GAP 9 MEQ/L (8-16); AST/SGOT 86 U/L (7-37); BILIRUBIN,TOTAL 1.1 MG/DL (0.2-1.0); BLOOD UREA NITROGEN 42 MG/DL (7-18); CALCIUM LEVEL 8.5 MG/DL (8.8-10.2); CARBON DIOXIDE LEVEL 32 MEQ/L (21-32); CHLORIDE LEVEL 94 MEQ/L (98-107); CREATININE FOR GFR 1.21 MG/DL (0.55-1.30); GLOMERULAR FILTRATION RATE 47.2 (>45); GLUCOSE, FASTING 138 MG/DL (70-100); MAGNESIUM LEVEL 2.7 MG/DL (1.8-2.4); SODIUM LEVEL 135 MEQ/L (136-145); TOTAL PROTEIN 5.3 GM/DL (6.4-8.2)
[2017-08-03] MEDS: HumaLOG INSULIN (NovoLOG) PER UNIT SC ×4 (07:40→20:16)
[2017-08-03] MEDS: SPIRONOLACTONE 50 MG TAB PO ×2 (08:47→20:43)
[2017-08-03] MEDS: FERROUS SULFATE 325MG TAB PO ×2 (08:47→20:43)
[2017-08-03] MEDS: rifAXIMin 550 MG TAB (XIFAXAN) PO ×2 (08:47→20:43)
[2017-08-03] MEDS: CYANOCOBALAMIN 500 MCG TAB PO (08:47)
[2017-08-03] MEDS: FOLIC ACID 1 MG TAB PO (08:47)
[2017-08-03] MEDS: OMEPRAZOLE 20 MG CAP PO (08:47)
[2017-08-03] MEDS: THIAMINE 100 MG TAB PO (08:48)
[2017-08-03] MEDS: MULTIVITAMINS CHILDREN'S CHEWABLE TABLET PO ×2 (08:48→20:43)
[2017-08-03] MEDS: MAGNESIUM OXIDE 400 MG TAB (MAG-OX) PO (08:48)
[2017-08-03] MEDS: ZINC SULFATE 220 MG CAP PO (08:50)
[2017-08-03] MEDS: TORSEMIDE (DEMADEX) 50 MG PER 1/2 TAB PO (08:50)
[2017-08-03] MEDS: NADOLOL 20MG TABLET PO (08:51)
[2017-08-03 17:01] LABS: BEDSIDE GLUCOSE 197 MG/DL (80-115)
[2017-08-03 17:01] LABS: BEDSIDE GLUCOSE 192 MG/DL (80-115)
[2017-08-03 17:01] LABS: BEDSIDE GLUCOSE 161 MG/DL (80-115)
[2017-08-03 17:01] LABS: BEDSIDE GLUCOSE 159 MG/DL (80-115)
[2017-08-03 17:01] LABS: BEDSIDE GLUCOSE 153 MG/DL (80-115)
[2017-08-03 17:01] LABS: BEDSIDE GLUCOSE 214 MG/DL (80-115)
[2017-08-04] MEDS: LACTULOSE 20 GM/30 ML SYRUP UD PO ×3 (05:38→22:02)
[2017-08-04] MEDS: SLF 3 ML SYR IV ×3 (05:38→22:02)
[2017-08-04 06:00] LABS: HEMATOCRIT 28.9 % (36.0-47.0); HEMOGLOBIN 9.6 g/dl (12.0-15.5); MEAN CORPUSCULAR HGB CONC 33.2 g/dl (32.0-36.5); MEAN CORPUSCULAR VOLUME 90.3 fl (80.0-96.0); PLATELET COUNT, AUTOMATED 129 10^3/uL (150-450); RED CELL DISTRIBUTION WIDTH 17.2 % (11.5-14.5); WHITE BLOOD COUNT 6.2 10^3/uL (4.0-10.0)
[2017-08-04 06:23] LABS: ALBUMIN/GLOBULIN RATIO 1.43 (1.00-1.93); ALKALINE PHOSPHATASE 398 U/L (45-117); ALT/SGPT 92 U/L (12-78); ANION GAP 6 MEQ/L (8-16); AST/SGOT 83 U/L (7-37); BILIRUBIN,TOTAL 1.1 MG/DL (0.2-1.0); BLOOD UREA NITROGEN 40 MG/DL (7-18); CALCIUM LEVEL 8.6 MG/DL (8.8-10.2); CARBON DIOXIDE LEVEL 32 MEQ/L (21-32); CHLORIDE LEVEL 96 MEQ/L (98-107); CREATININE FOR GFR 1.13 MG/DL (0.55-1.30); GLOMERULAR FILTRATION RATE 51.1 (>45); GLUCOSE, FASTING 128 MG/DL (70-100); MAGNESIUM LEVEL 2.6 MG/DL (1.8-2.4); POTASSIUM SERUM 4.2 MEQ/L (3.5-5.1); PREALBUMIN 16.1 MG/DL (20.0-40.0); SODIUM LEVEL 134 MEQ/L (136-145); TOTAL PROTEIN 5.1 GM/DL (6.4-8.2)
[2017-08-04] MEDS: NADOLOL 20MG TABLET PO (09:00)
[2017-08-04] MEDS: HumaLOG INSULIN (NovoLOG) PER UNIT SC ×4 (09:26→21:38)
[2017-08-04] MEDS: TORSEMIDE (DEMADEX) 50 MG PER 1/2 TAB PO (09:26)
[2017-08-04] MEDS: ZINC SULFATE 220 MG CAP PO (09:26)
[2017-08-04] MEDS: rifAXIMin 550 MG TAB (XIFAXAN) PO ×2 (09:26→22:02)
[2017-08-04] MEDS: THIAMINE 100 MG TAB PO (09:26)
[2017-08-04] MEDS: MULTIVITAMINS CHILDREN'S CHEWABLE TABLET PO ×2 (09:26→22:02)
[2017-08-04] MEDS: OMEPRAZOLE 20 MG CAP PO (09:26)
[2017-08-04] MEDS: FOLIC ACID 1 MG TAB PO (09:26)
[2017-08-04] MEDS: MAGNESIUM OXIDE 400 MG TAB (MAG-OX) PO (09:26)
[2017-08-04] MEDS: SPIRONOLACTONE 50 MG TAB PO ×2 (09:26→22:02)
[2017-08-04] MEDS: FERROUS SULFATE 325MG TAB PO ×2 (09:27→22:02)
[2017-08-04] MEDS: CYANOCOBALAMIN 500 MCG TAB PO (09:27)
[2017-08-04 20:44] LABS: BEDSIDE GLUCOSE 229 MG/DL (80-115)
[2017-08-04 20:44] LABS: BEDSIDE GLUCOSE 145 MG/DL (80-115)
[2017-08-04 20:44] LABS: BEDSIDE GLUCOSE 199 MG/DL (80-115)
[2017-08-04 20:44] LABS: BEDSIDE GLUCOSE 111 MG/DL (80-115)
[2017-08-05] MEDS: LACTULOSE 20 GM/30 ML SYRUP UD PO ×4 (05:50→22:00)
[2017-08-05] MEDS: SLF 3 ML SYR IV ×3 (05:50→22:00)
[2017-08-05 06:14] LABS: HEMATOCRIT 27.6 % (36.0-47.0); HEMOGLOBIN 9.4 g/dl (12.0-15.5); MEAN CORPUSCULAR HEMOGLOBIN 30.5 pg (27.0-33.0); MEAN CORPUSCULAR HGB CONC 34.1 g/dl (32.0-36.5); MEAN CORPUSCULAR VOLUME 89.6 fl (80.0-96.0); PLATELET COUNT, AUTOMATED 119 10^3/uL (150-450); RED BLOOD COUNT 3.08 10^6/uL (4.00-5.40); WHITE BLOOD COUNT 6.3 10^3/uL (4.0-10.0)
[2017-08-05 06:34] LABS: ALBUMIN 2.9 GM/DL (3.2-5.2); ALBUMIN/GLOBULIN RATIO 1.26 (1.00-1.93); ALKALINE PHOSPHATASE 383 U/L (45-117); ALT/SGPT 90 U/L (12-78); ANION GAP 5 MEQ/L (8-16); AST/SGOT 74 U/L (7-37); BILIRUBIN,TOTAL 1.1 MG/DL (0.2-1.0); BLOOD UREA NITROGEN 38 MG/DL (7-18); CALCIUM LEVEL 8.4 MG/DL (8.8-10.2); CARBON DIOXIDE LEVEL 35 MEQ/L (21-32); CHLORIDE LEVEL 93 MEQ/L (98-107); CREATININE FOR GFR 1.23 MG/DL (0.55-1.30); GLOMERULAR FILTRATION RATE 46.4 (>45); GLUCOSE, FASTING 130 MG/DL (70-100); MAGNESIUM LEVEL 2.5 MG/DL (1.8-2.4); POTASSIUM SERUM 4.3 MEQ/L (3.5-5.1); SODIUM LEVEL 133 MEQ/L (136-145); TOTAL PROTEIN 5.2 GM/DL (6.4-8.2)
[2017-08-05] MEDS: HumaLOG INSULIN (NovoLOG) PER UNIT SC ×4 (09:16→21:00)
[2017-08-05] MEDS: ZINC SULFATE 220 MG CAP PO (09:17)
[2017-08-05] MEDS: rifAXIMin 550 MG TAB (XIFAXAN) PO ×2 (09:17→22:05)
[2017-08-05] MEDS: SPIRONOLACTONE 50 MG TAB PO ×2 (09:17→22:06)
[2017-08-05] MEDS: NADOLOL 20MG TABLET PO (09:18)
[2017-08-05] MEDS: MAGNESIUM OXIDE 400 MG TAB (MAG-OX) PO (09:18)
[2017-08-05] MEDS: TORSEMIDE (DEMADEX) 50 MG PER 1/2 TAB PO (09:18)
[2017-08-05] MEDS: FERROUS SULFATE 325MG TAB PO ×2 (09:18→22:05)
[2017-08-05] MEDS: FOLIC ACID 1 MG TAB PO (09:18)
[2017-08-05] MEDS: THIAMINE 100 MG TAB PO (09:18)
[2017-08-05] MEDS: MULTIVITAMINS CHILDREN'S CHEWABLE TABLET PO ×2 (09:18→22:04)
[2017-08-05] MEDS: OMEPRAZOLE 20 MG CAP PO (09:18)
[2017-08-05] MEDS: CYANOCOBALAMIN 500 MCG TAB PO (09:19)
[2017-08-05 19:40] LABS: BEDSIDE GLUCOSE 168 MG/DL (80-115)
[2017-08-05 19:40] LABS: BEDSIDE GLUCOSE 91 MG/DL (80-115)
[2017-08-05 20:58] LABS: BEDSIDE GLUCOSE 166 MG/DL (80-115)
[2017-08-06] MEDS: LACTULOSE 20 GM/30 ML SYRUP UD PO ×3 (05:40→21:00)
[2017-08-06] MEDS: SLF 3 ML SYR IV ×3 (05:41→20:16)
[2017-08-06 06:25] LABS: HEMATOCRIT 28.9 % (36.0-47.0); HEMOGLOBIN 9.8 g/dl (12.0-15.5); MEAN CORPUSCULAR HEMOGLOBIN 30.2 pg (27.0-33.0); MEAN CORPUSCULAR HGB CONC 33.9 g/dl (32.0-36.5); MEAN CORPUSCULAR VOLUME 89.2 fl (80.0-96.0); PLATELET COUNT, AUTOMATED 135 10^3/uL (150-450); RED BLOOD COUNT 3.24 10^6/uL (4.00-5.40); RED CELL DISTRIBUTION WIDTH 16.8 % (11.5-14.5); WHITE BLOOD COUNT 6.7 10^3/uL (4.0-10.0)
[2017-08-06 06:46] LABS: ALBUMIN 2.9 GM/DL (3.2-5.2); ALBUMIN/GLOBULIN RATIO 1.21 (1.00-1.93); ALKALINE PHOSPHATASE 444 U/L (45-117); ALT/SGPT 103 U/L (12-78); ANION GAP 8 MEQ/L (8-16); AST/SGOT 89 U/L (7-37); BLOOD UREA NITROGEN 44 MG/DL (7-18); CALCIUM LEVEL 8.3 MG/DL (8.8-10.2); CARBON DIOXIDE LEVEL 31 MEQ/L (21-32); CHLORIDE LEVEL 94 MEQ/L (98-107); CREATININE FOR GFR 1.28 MG/DL (0.55-1.30); GLOMERULAR FILTRATION RATE 44.3 (>45); GLUCOSE, FASTING 131 MG/DL (70-100); MAGNESIUM LEVEL 2.6 MG/DL (1.8-2.4); POTASSIUM SERUM 4.1 MEQ/L (3.5-5.1); SODIUM LEVEL 133 MEQ/L (136-145); TOTAL PROTEIN 5.3 GM/DL (6.4-8.2)
[2017-08-06] MEDS: NADOLOL 20MG TABLET PO ×2 (09:00→09:22)
[2017-08-06] MEDS: MULTIVITAMINS CHILDREN'S CHEWABLE TABLET PO ×2 (09:18→20:16)
[2017-08-06] MEDS: TORSEMIDE (DEMADEX) 50 MG PER 1/2 TAB PO (09:18)
[2017-08-06] MEDS: HumaLOG INSULIN (NovoLOG) PER UNIT SC ×4 (09:18→20:17)
[2017-08-06] MEDS: CYANOCOBALAMIN 500 MCG TAB PO (09:18)
[2017-08-06] MEDS: FERROUS SULFATE 325MG TAB PO ×2 (09:19→20:15)
[2017-08-06] MEDS: rifAXIMin 550 MG TAB (XIFAXAN) PO ×2 (09:19→20:16)
[2017-08-06] MEDS: FOLIC ACID 1 MG TAB PO (09:19)
[2017-08-06] MEDS: THIAMINE 100 MG TAB PO (09:19)
[2017-08-06] MEDS: ZINC SULFATE 220 MG CAP PO (09:19)
[2017-08-06] MEDS: OMEPRAZOLE 20 MG CAP PO (09:19)
[2017-08-06] MEDS: SPIRONOLACTONE 50 MG TAB PO ×2 (09:29→20:15)
[2017-08-06 12:15] LABS: BEDSIDE GLUCOSE 88 MG/DL (80-115)
[2017-08-06 19:36] LABS: BEDSIDE GLUCOSE 198 MG/DL (80-115)
[2017-08-06 20:29] LABS: BEDSIDE GLUCOSE 188 MG/DL (80-115)
[2017-08-07] MEDS: SLF 3 ML SYR IV ×3 (06:04→21:14)
[2017-08-07] MEDS: LACTULOSE 20 GM/30 ML SYRUP UD PO ×3 (06:04→21:13)
[2017-08-07 06:26] LABS: HEMATOCRIT 28.9 % (36.0-47.0); HEMOGLOBIN 9.7 g/dl (12.0-15.5); MEAN CORPUSCULAR HGB CONC 33.6 g/dl (32.0-36.5); MEAN CORPUSCULAR VOLUME 89.5 fl (80.0-96.0); PLATELET COUNT, AUTOMATED 139 10^3/uL (150-450); RED BLOOD COUNT 3.23 10^6/uL (4.00-5.40); RED CELL DISTRIBUTION WIDTH 16.8 % (11.5-14.5); WHITE BLOOD COUNT 6.6 10^3/uL (4.0-10.0)
[2017-08-07 06:49] LABS: ALBUMIN 2.8 GM/DL (3.2-5.2); ALBUMIN/GLOBULIN RATIO 1.12 (1.00-1.93); ALKALINE PHOSPHATASE 426 U/L (45-117); ALT/SGPT 89 U/L (12-78); ANION GAP 7 MEQ/L (8-16); AST/SGOT 67 U/L (7-37); BILIRUBIN,TOTAL 1.2 MG/DL (0.2-1.0); BLOOD UREA NITROGEN 47 MG/DL (7-18); CALCIUM LEVEL 8.6 MG/DL (8.8-10.2); CARBON DIOXIDE LEVEL 31 MEQ/L (21-32); CHLORIDE LEVEL 95 MEQ/L (98-107); GLOMERULAR FILTRATION RATE 47.7 (>45); GLUCOSE, FASTING 134 MG/DL (70-100); MAGNESIUM LEVEL 2.6 MG/DL (1.8-2.4); POTASSIUM SERUM 4.1 MEQ/L (3.5-5.1); SODIUM LEVEL 133 MEQ/L (136-145); TOTAL PROTEIN 5.3 GM/DL (6.4-8.2)
[2017-08-07] MEDS: CYANOCOBALAMIN 500 MCG TAB PO (09:42)
[2017-08-07] MEDS: TORSEMIDE (DEMADEX) 50 MG PER 1/2 TAB PO (09:42)
[2017-08-07] MEDS: THIAMINE 100 MG TAB PO (09:42)
[2017-08-07] MEDS: SPIRONOLACTONE 50 MG TAB PO ×2 (09:42→20:51)
[2017-08-07] MEDS: OMEPRAZOLE 20 MG CAP PO (09:42)
[2017-08-07] MEDS: FERROUS SULFATE 325MG TAB PO ×2 (09:42→20:52)
[2017-08-07] MEDS: MULTIVITAMINS CHILDREN'S CHEWABLE TABLET PO ×2 (09:43→20:51)
[2017-08-07] MEDS: NADOLOL 20MG TABLET PO (09:43)
[2017-08-07] MEDS: FOLIC ACID 1 MG TAB PO (09:43)
[2017-08-07] MEDS: ZINC SULFATE 220 MG CAP PO (09:44)
[2017-08-07] MEDS: HumaLOG INSULIN (NovoLOG) PER UNIT SC ×4 (09:44→20:46)
[2017-08-07] MEDS: rifAXIMin 550 MG TAB (XIFAXAN) PO ×2 (09:44→20:51)
[2017-08-07 11:44] LABS: BEDSIDE GLUCOSE 194 MG/DL (80-115)
[2017-08-07 12:40] LABS: AMMONIA 46 uMOL/L (<32)
[2017-08-08 02:46] LABS: BEDSIDE GLUCOSE 139 MG/DL (80-115)
[2017-08-08 02:47] LABS: BEDSIDE GLUCOSE 243 MG/DL (80-115)
[2017-08-08] MEDS: LACTULOSE 20 GM/30 ML SYRUP UD PO ×4 (06:09→22:00)
[2017-08-08] MEDS: SLF 3 ML SYR IV ×3 (06:09→21:35)
[2017-08-08 06:14] LABS: HEMOGLOBIN 9.6 g/dl (12.0-15.5); MEAN CORPUSCULAR HEMOGLOBIN 30.7 pg (27.0-33.0); MEAN CORPUSCULAR HGB CONC 34.3 g/dl (32.0-36.5); MEAN CORPUSCULAR VOLUME 89.5 fl (80.0-96.0); PLATELET COUNT, AUTOMATED 130 10^3/uL (150-450); RED BLOOD COUNT 3.13 10^6/uL (4.00-5.40); RED CELL DISTRIBUTION WIDTH 16.9 % (11.5-14.5); WHITE BLOOD COUNT 6.6 10^3/uL (4.0-10.0)
[2017-08-08 06:41] LABS: ALBUMIN 2.8 GM/DL (3.2-5.2); ALBUMIN/GLOBULIN RATIO 1.12 (1.00-1.93); ALKALINE PHOSPHATASE 437 U/L (45-117); ALT/SGPT 89 U/L (12-78); ANION GAP 7 MEQ/L (8-16); AST/SGOT 70 U/L (7-37); BILIRUBIN,TOTAL 0.9 MG/DL (0.2-1.0); BLOOD UREA NITROGEN 50 MG/DL (7-18); CALCIUM LEVEL 8.4 MG/DL (8.8-10.2); CARBON DIOXIDE LEVEL 30 MEQ/L (21-32); CHLORIDE LEVEL 96 MEQ/L (98-107); CREATININE FOR GFR 1.26 MG/DL (0.55-1.30); GLOMERULAR FILTRATION RATE 45.1 (>45); GLUCOSE, FASTING 130 MG/DL (70-100); MAGNESIUM LEVEL 2.6 MG/DL (1.8-2.4); SODIUM LEVEL 133 MEQ/L (136-145); TOTAL PROTEIN 5.3 GM/DL (6.4-8.2)
[2017-08-08] MEDS: FERROUS SULFATE 325MG TAB PO ×2 (08:03→21:35)
[2017-08-08] MEDS: FOLIC ACID 1 MG TAB PO (08:03)
[2017-08-08] MEDS: SPIRONOLACTONE 50 MG TAB PO ×2 (08:03→21:35)
[2017-08-08] MEDS: THIAMINE 100 MG TAB PO (08:04)
[2017-08-08] MEDS: NADOLOL 20MG TABLET PO (08:04)
[2017-08-08] MEDS: rifAXIMin 550 MG TAB (XIFAXAN) PO ×2 (08:04→21:35)
[2017-08-08] MEDS: TORSEMIDE (DEMADEX) 50 MG PER 1/2 TAB PO (08:04)
[2017-08-08] MEDS: ZINC SULFATE 220 MG CAP PO (08:04)
[2017-08-08] MEDS: OMEPRAZOLE 20 MG CAP PO (08:04)
[2017-08-08] MEDS: CYANOCOBALAMIN 500 MCG TAB PO (08:04)
[2017-08-08] MEDS: MULTIVITAMINS CHILDREN'S CHEWABLE TABLET PO ×2 (08:04→21:35)
[2017-08-08] MEDS: HumaLOG INSULIN (NovoLOG) PER UNIT SC ×4 (08:05→20:45)
[2017-08-08] MEDS: QUEtiapine FUMARATE 12.5 MG HALF-TAB PO (13:14)
[2017-08-08 20:52] LABS: BEDSIDE GLUCOSE 167 MG/DL (80-115)
[2017-08-09] MEDS: LACTULOSE 20 GM/30 ML SYRUP UD PO ×3 (05:16→22:00)
[2017-08-09] MEDS: SLF 3 ML SYR IV ×3 (05:16→22:00)
[2017-08-09 05:49] LABS: HEMATOCRIT 29.7 % (36.0-47.0); HEMOGLOBIN 9.9 g/dl (12.0-15.5); MEAN CORPUSCULAR HEMOGLOBIN 30.2 pg (27.0-33.0); MEAN CORPUSCULAR HGB CONC 33.3 g/dl (32.0-36.5); MEAN CORPUSCULAR VOLUME 90.5 fl (80.0-96.0); PLATELET COUNT, AUTOMATED 121 10^3/uL (150-450); RED BLOOD COUNT 3.28 10^6/uL (4.00-5.40); RED CELL DISTRIBUTION WIDTH 16.9 % (11.5-14.5); WHITE BLOOD COUNT 6.2 10^3/uL (4.0-10.0)
[2017-08-09 06:11] LABS: ALBUMIN 2.9 GM/DL (3.2-5.2); ALBUMIN/GLOBULIN RATIO 1.16 (1.00-1.93); ALKALINE PHOSPHATASE 421 U/L (45-117); ALT/SGPT 84 U/L (12-78); ANION GAP 6 MEQ/L (8-16); AST/SGOT 64 U/L (7-37); BILIRUBIN,TOTAL 1.1 MG/DL (0.2-1.0); BLOOD UREA NITROGEN 48 MG/DL (7-18); CALCIUM LEVEL 8.5 MG/DL (8.8-10.2); CARBON DIOXIDE LEVEL 33 MEQ/L (21-32); CHLORIDE LEVEL 95 MEQ/L (98-107); CREATININE FOR GFR 1.15 MG/DL (0.55-1.30); GLOMERULAR FILTRATION RATE 50.1 (>45); GLUCOSE, FASTING 137 MG/DL (70-100); MAGNESIUM LEVEL 2.5 MG/DL (1.8-2.4); POTASSIUM SERUM 3.8 MEQ/L (3.5-5.1); SODIUM LEVEL 134 MEQ/L (136-145); TOTAL PROTEIN 5.4 GM/DL (6.4-8.2)
[2017-08-09 06:20] LABS: BEDSIDE GLUCOSE 161 MG/DL (80-115)
[2017-08-09 06:20] LABS: BEDSIDE GLUCOSE 170 MG/DL (80-115)
[2017-08-09] MEDS: NADOLOL 20MG TABLET PO (08:24)
[2017-08-09] MEDS: HumaLOG INSULIN (NovoLOG) PER UNIT SC ×4 (08:32→20:02)
[2017-08-09] MEDS: SPIRONOLACTONE 50 MG TAB PO ×2 (08:32→21:58)
[2017-08-09] MEDS: FOLIC ACID 1 MG TAB PO (08:32)
[2017-08-09] MEDS: rifAXIMin 550 MG TAB (XIFAXAN) PO ×2 (08:32→21:58)
[2017-08-09] MEDS: THIAMINE 100 MG TAB PO (08:33)
[2017-08-09] MEDS: MULTIVITAMINS CHILDREN'S CHEWABLE TABLET PO ×2 (08:33→21:58)
[2017-08-09] MEDS: ZINC SULFATE 220 MG CAP PO (08:33)
[2017-08-09] MEDS: QUEtiapine FUMARATE 12.5 MG HALF-TAB PO ×2 (08:33→21:58)
[2017-08-09] MEDS: OMEPRAZOLE 20 MG CAP PO (08:33)
[2017-08-09] MEDS: TORSEMIDE (DEMADEX) 50 MG PER 1/2 TAB PO (08:33)
[2017-08-09] MEDS: CYANOCOBALAMIN 500 MCG TAB PO (08:33)
[2017-08-09] MEDS: FERROUS SULFATE 325MG TAB PO ×2 (08:33→21:58)
[2017-08-09 16:19] LABS: BEDSIDE GLUCOSE 135 MG/DL (80-115)
[2017-08-09 16:59] LABS: BEDSIDE GLUCOSE 198 MG/DL (80-115)
[2017-08-09 20:07] LABS: BEDSIDE GLUCOSE 169 MG/DL (80-115)
[2017-08-10] MEDS: SLF 3 ML SYR IV ×3 (05:19→21:20)
[2017-08-10] MEDS: LACTULOSE 20 GM/30 ML SYRUP UD PO ×4 (05:19→21:20)
[2017-08-10 06:32] LABS: BEDSIDE GLUCOSE 154 MG/DL (80-115)
[2017-08-10] MEDS: ZINC SULFATE 220 MG CAP PO (08:07)
[2017-08-10] MEDS: HumaLOG INSULIN (NovoLOG) PER UNIT SC ×4 (08:07→21:00)
[2017-08-10] MEDS: CYANOCOBALAMIN 500 MCG TAB PO (08:07)
[2017-08-10] MEDS: FOLIC ACID 1 MG TAB PO (08:07)
[2017-08-10] MEDS: MULTIVITAMINS CHILDREN'S CHEWABLE TABLET PO ×2 (08:07→20:34)
[2017-08-10] MEDS: TORSEMIDE (DEMADEX) 50 MG PER 1/2 TAB PO (08:07)
[2017-08-10] MEDS: THIAMINE 100 MG TAB PO (08:07)
[2017-08-10] MEDS: FERROUS SULFATE 325MG TAB PO ×2 (08:07→20:34)
[2017-08-10] MEDS: rifAXIMin 550 MG TAB (XIFAXAN) PO ×2 (08:07→20:34)
[2017-08-10] MEDS: OMEPRAZOLE 20 MG CAP PO (08:08)
[2017-08-10] MEDS: NADOLOL 20MG TABLET PO (08:08)
[2017-08-10] MEDS: SPIRONOLACTONE 50 MG TAB PO ×2 (08:09→20:34)
[2017-08-10 08:34] LABS: HEMATOCRIT 32.2 % (36.0-47.0); HEMOGLOBIN 10.6 g/dl (12.0-15.5); MEAN CORPUSCULAR HEMOGLOBIN 30.2 pg (27.0-33.0); MEAN CORPUSCULAR HGB CONC 32.9 g/dl (32.0-36.5); MEAN CORPUSCULAR VOLUME 91.7 fl (80.0-96.0); PLATELET COUNT, AUTOMATED 120 10^3/uL (150-450); RED BLOOD COUNT 3.51 10^6/uL (4.00-5.40); RED CELL DISTRIBUTION WIDTH 17.2 % (11.5-14.5); WHITE BLOOD COUNT 7.2 10^3/uL (4.0-10.0)
[2017-08-10 08:55] LABS: ALBUMIN 3.1 GM/DL (3.2-5.2); ALBUMIN/GLOBULIN RATIO 1.03 (1.00-1.93); ALKALINE PHOSPHATASE 437 U/L (45-117); ALT/SGPT 96 U/L (12-78); ANION GAP 8 MEQ/L (8-16); AST/SGOT 74 U/L (7-37); BILIRUBIN,TOTAL 1.2 MG/DL (0.2-1.0); BLOOD UREA NITROGEN 45 MG/DL (7-18); CALCIUM LEVEL 8.7 MG/DL (8.8-10.2); CARBON DIOXIDE LEVEL 30 MEQ/L (21-32); CHLORIDE LEVEL 95 MEQ/L (98-107); CREATININE FOR GFR 1.18 MG/DL (0.55-1.30); GLOMERULAR FILTRATION RATE 48.6 (>45); GLUCOSE, FASTING 149 MG/DL (70-100); POTASSIUM SERUM 3.9 MEQ/L (3.5-5.1); SODIUM LEVEL 133 MEQ/L (136-145); TOTAL PROTEIN 6.1 GM/DL (6.4-8.2)
[2017-08-10] MEDS: QUEtiapine FUMARATE 25 MG TAB PO (20:34)
[2017-08-10 21:18] LABS: BEDSIDE GLUCOSE 207 MG/DL (80-115)
[2017-08-11 06:30] LABS: HEMATOCRIT 28.4 % (36.0-47.0); HEMOGLOBIN 9.8 g/dl (12.0-15.5); MEAN CORPUSCULAR HEMOGLOBIN 30.9 pg (27.0-33.0); MEAN CORPUSCULAR HGB CONC 34.5 g/dl (32.0-36.5); MEAN CORPUSCULAR VOLUME 89.6 fl (80.0-96.0); PLATELET COUNT, AUTOMATED 112 10^3/uL (150-450); RED BLOOD COUNT 3.17 10^6/uL (4.00-5.40); RED CELL DISTRIBUTION WIDTH 16.9 % (11.5-14.5); WHITE BLOOD COUNT 5.8 10^3/uL (4.0-10.0)
[2017-08-11] MEDS: LACTULOSE 20 GM/30 ML SYRUP UD PO ×3 (06:39→21:59)
[2017-08-11] MEDS: SLF 3 ML SYR IV ×3 (06:39→21:59)
[2017-08-11 06:57] LABS: ALBUMIN 2.8 GM/DL (3.2-5.2); ALBUMIN/GLOBULIN RATIO 1.12 (1.00-1.93); ALKALINE PHOSPHATASE 380 U/L (45-117); ALT/SGPT 81 U/L (12-78); ANION GAP 6 MEQ/L (8-16); AST/SGOT 61 U/L (7-37); BILIRUBIN,TOTAL 1.1 MG/DL (0.2-1.0); BLOOD UREA NITROGEN 43 MG/DL (7-18); CALCIUM LEVEL 8.9 MG/DL (8.8-10.2); CARBON DIOXIDE LEVEL 32 MEQ/L (21-32); CHLORIDE LEVEL 96 MEQ/L (98-107); GLOMERULAR FILTRATION RATE 47.7 (>45); GLUCOSE, FASTING 134 MG/DL (70-100); MAGNESIUM LEVEL 2.6 MG/DL (1.8-2.4); POTASSIUM SERUM 4.1 MEQ/L (3.5-5.1); SODIUM LEVEL 134 MEQ/L (136-145); TOTAL PROTEIN 5.3 GM/DL (6.4-8.2)
[2017-08-11 07:05] LABS: BEDSIDE GLUCOSE 204 MG/DL (80-115)
[2017-08-11 07:05] LABS: BEDSIDE GLUCOSE 168 MG/DL (80-115)
[2017-08-11] MEDS: TORSEMIDE (DEMADEX) 50 MG PER 1/2 TAB PO (09:13)
[2017-08-11] MEDS: ZINC SULFATE 220 MG CAP PO (09:13)
[2017-08-11] MEDS: FOLIC ACID 1 MG TAB PO (09:13)
[2017-08-11] MEDS: THIAMINE 100 MG TAB PO (09:13)
[2017-08-11] MEDS: MULTIVITAMINS CHILDREN'S CHEWABLE TABLET PO ×2 (09:13→21:59)
[2017-08-11] MEDS: SPIRONOLACTONE 50 MG TAB PO ×2 (09:13→21:59)
[2017-08-11] MEDS: HumaLOG INSULIN (NovoLOG) PER UNIT SC ×4 (09:13→21:00)
[2017-08-11] MEDS: OMEPRAZOLE 20 MG CAP PO (09:14)
[2017-08-11] MEDS: rifAXIMin 550 MG TAB (XIFAXAN) PO ×2 (09:14→21:59)
[2017-08-11] MEDS: FERROUS SULFATE 325MG TAB PO ×2 (09:14→21:59)
[2017-08-11] MEDS: CYANOCOBALAMIN 500 MCG TAB PO (09:14)
[2017-08-11] MEDS: NADOLOL 20MG TABLET PO (09:14)
[2017-08-11 12:07] LABS: BEDSIDE GLUCOSE 104 MG/DL (80-115)
[2017-08-11 17:20] LABS: TYPE AND SCREEN 1
[2017-08-11 17:31] LABS: BEDSIDE GLUCOSE 167 MG/DL (80-115)
[2017-08-11] MEDS: QUEtiapine FUMARATE 25 MG TAB PO (21:59)
[2017-08-11 23:25] LABS: BEDSIDE GLUCOSE 142 MG/DL (80-115)
[2017-08-12] MEDS: LACTULOSE 20 GM/30 ML SYRUP UD PO ×3 (05:11→21:51)
[2017-08-12] MEDS: SLF 3 ML SYR IV ×3 (05:11→21:51)
[2017-08-12 05:51] LABS: HEMATOCRIT 28.1 % (36.0-47.0); HEMOGLOBIN 9.4 g/dl (12.0-15.5); MEAN CORPUSCULAR HEMOGLOBIN 30.2 pg (27.0-33.0); MEAN CORPUSCULAR HGB CONC 33.5 g/dl (32.0-36.5); MEAN CORPUSCULAR VOLUME 90.4 fl (80.0-96.0); RED BLOOD COUNT 3.11 10^6/uL (4.00-5.40); RED CELL DISTRIBUTION WIDTH 16.8 % (11.5-14.5); WHITE BLOOD COUNT 4.9 10^3/uL (4.0-10.0)
[2017-08-12 06:19] LABS: IMMATURE PLATELET FRACTION % 3.1 % (0.0-9.6); PLATELET COUNT, AUTOMATED 90 10^3/uL (150-450)
[2017-08-12 06:25] LABS: ALBUMIN 2.9 GM/DL (3.2-5.2); ALBUMIN/GLOBULIN RATIO 1.32 (1.00-1.93); ALKALINE PHOSPHATASE 361 U/L (45-117); ALT/SGPT 75 U/L (12-78); ANION GAP 7 MEQ/L (8-16); AST/SGOT 62 U/L (7-37); BILIRUBIN,TOTAL 1.1 MG/DL (0.2-1.0); BLOOD UREA NITROGEN 40 MG/DL (7-18); CALCIUM LEVEL 8.6 MG/DL (8.8-10.2); CARBON DIOXIDE LEVEL 32 MEQ/L (21-32); CHLORIDE LEVEL 96 MEQ/L (98-107); CREATININE FOR GFR 1.15 MG/DL (0.55-1.30); GLOMERULAR FILTRATION RATE 50.1 (>45); GLUCOSE, FASTING 121 MG/DL (70-100); MAGNESIUM LEVEL 2.4 MG/DL (1.8-2.4); POTASSIUM SERUM 3.9 MEQ/L (3.5-5.1); SODIUM LEVEL 135 MEQ/L (136-145); TOTAL PROTEIN 5.1 GM/DL (6.4-8.2)
[2017-08-12] MEDS: HumaLOG INSULIN (NovoLOG) PER UNIT SC ×4 (08:53→21:00)
[2017-08-12] MEDS: THIAMINE 100 MG TAB PO (08:54)
[2017-08-12] MEDS: OMEPRAZOLE 20 MG CAP PO (08:54)
[2017-08-12] MEDS: FERROUS SULFATE 325MG TAB PO ×2 (08:54→21:51)
[2017-08-12] MEDS: rifAXIMin 550 MG TAB (XIFAXAN) PO ×2 (08:54→21:51)
[2017-08-12] MEDS: MULTIVITAMINS CHILDREN'S CHEWABLE TABLET PO ×2 (08:54→21:51)
[2017-08-12] MEDS: CYANOCOBALAMIN 500 MCG TAB PO (08:54)
[2017-08-12] MEDS: FOLIC ACID 1 MG TAB PO (08:54)
[2017-08-12] MEDS: ZINC SULFATE 220 MG CAP PO (08:54)
[2017-08-12] MEDS: SPIRONOLACTONE 50 MG TAB PO ×2 (08:54→21:51)
[2017-08-12] MEDS: TORSEMIDE (DEMADEX) 50 MG PER 1/2 TAB PO (08:55)
[2017-08-12] MEDS: NADOLOL 20MG TABLET PO (08:55)
[2017-08-12 12:17] LABS: BEDSIDE GLUCOSE 100 MG/DL (80-115)
[2017-08-12 17:00] LABS: BEDSIDE GLUCOSE 204 MG/DL (80-115)
[2017-08-12 20:27] LABS: BEDSIDE GLUCOSE 127 MG/DL (80-115)
[2017-08-12] MEDS: QUEtiapine FUMARATE 25 MG TAB PO (21:51)
[2017-08-13] MEDS: SLF 3 ML SYR IV ×3 (06:02→21:36)
[2017-08-13] MEDS: LACTULOSE 20 GM/30 ML SYRUP UD PO ×3 (06:02→21:36)
[2017-08-13 06:40] LABS: HEMATOCRIT 29.6 % (36.0-47.0); HEMOGLOBIN 9.9 g/dl (12.0-15.5); MEAN CORPUSCULAR HEMOGLOBIN 30.5 pg (27.0-33.0); MEAN CORPUSCULAR HGB CONC 33.4 g/dl (32.0-36.5); MEAN CORPUSCULAR VOLUME 91.1 fl (80.0-96.0); RED BLOOD COUNT 3.25 10^6/uL (4.00-5.40); RED CELL DISTRIBUTION WIDTH 16.9 % (11.5-14.5); WHITE BLOOD COUNT 5.7 10^3/uL (4.0-10.0)
[2017-08-13 06:44] LABS: PLATELET COUNT, AUTOMATED 92 10^3/uL (150-450)
[2017-08-13 06:45] LABS: IMMATURE PLATELET FRACTION % 2.8 % (0.0-9.6)
[2017-08-13 07:00] LABS: ALBUMIN 2.9 GM/DL (3.2-5.2); ALBUMIN/GLOBULIN RATIO 1.12 (1.00-1.93); ALKALINE PHOSPHATASE 402 U/L (45-117); ALT/SGPT 82 U/L (12-78); ANION GAP 7 MEQ/L (8-16); AST/SGOT 69 U/L (7-37); BILIRUBIN,TOTAL 0.9 MG/DL (0.2-1.0); BLOOD UREA NITROGEN 40 MG/DL (7-18); CALCIUM LEVEL 8.5 MG/DL (8.8-10.2); CARBON DIOXIDE LEVEL 30 MEQ/L (21-32); CHLORIDE LEVEL 98 MEQ/L (98-107); CREATININE FOR GFR 1.28 MG/DL (0.55-1.30); GLOMERULAR FILTRATION RATE 44.3 (>45); GLUCOSE, FASTING 137 MG/DL (70-100); MAGNESIUM LEVEL 2.4 MG/DL (1.8-2.4); POTASSIUM SERUM 3.9 MEQ/L (3.5-5.1); SODIUM LEVEL 135 MEQ/L (136-145); TOTAL PROTEIN 5.5 GM/DL (6.4-8.2)
[2017-08-13] MEDS: CYANOCOBALAMIN 500 MCG TAB PO (09:29)
[2017-08-13] MEDS: OMEPRAZOLE 20 MG CAP PO (09:29)
[2017-08-13] MEDS: FERROUS SULFATE 325MG TAB PO ×2 (09:29→21:36)
[2017-08-13] MEDS: THIAMINE 100 MG TAB PO (09:29)
[2017-08-13] MEDS: ZINC SULFATE 220 MG CAP PO (09:29)
[2017-08-13] MEDS: rifAXIMin 550 MG TAB (XIFAXAN) PO ×2 (09:29→21:36)
[2017-08-13] MEDS: FOLIC ACID 1 MG TAB PO (09:29)
[2017-08-13] MEDS: SPIRONOLACTONE 50 MG TAB PO ×2 (09:29→21:36)
[2017-08-13] MEDS: TORSEMIDE (DEMADEX) 50 MG PER 1/2 TAB PO (09:29)
[2017-08-13] MEDS: MULTIVITAMINS CHILDREN'S CHEWABLE TABLET PO ×2 (09:29→21:36)
[2017-08-13] MEDS: NADOLOL 20MG TABLET PO (09:30)
[2017-08-13] MEDS: HumaLOG INSULIN (NovoLOG) PER UNIT SC ×4 (09:30→21:29)
[2017-08-13 12:07] LABS: BEDSIDE GLUCOSE 76 MG/DL (80-115)
[2017-08-13 17:05] LABS: BEDSIDE GLUCOSE 170 MG/DL (80-115)
[2017-08-13 20:06] LABS: BEDSIDE GLUCOSE 173 MG/DL (80-115)
[2017-08-13] MEDS: QUEtiapine FUMARATE 25 MG TAB PO (21:36)
[2017-08-14] MEDS: LACTULOSE 20 GM/30 ML SYRUP UD PO ×3 (06:10→21:33)
[2017-08-14] MEDS: SLF 3 ML SYR IV ×3 (06:13→21:33)
[2017-08-14 06:40] LABS: HEMATOCRIT 28.6 % (36.0-47.0); HEMOGLOBIN 9.7 g/dl (12.0-15.5); MEAN CORPUSCULAR HEMOGLOBIN 30.8 pg (27.0-33.0); MEAN CORPUSCULAR HGB CONC 33.9 g/dl (32.0-36.5); MEAN CORPUSCULAR VOLUME 90.8 fl (80.0-96.0); RED BLOOD COUNT 3.15 10^6/uL (4.00-5.40); RED CELL DISTRIBUTION WIDTH 16.7 % (11.5-14.5)
[2017-08-14 06:47] LABS: PLATELET COUNT, AUTOMATED 93 10^3/uL (150-450)
[2017-08-14 07:12] LABS: ALBUMIN 2.7 GM/DL (3.2-5.2); ALBUMIN/GLOBULIN RATIO 1.13 (1.00-1.93); ALKALINE PHOSPHATASE 402 U/L (45-117); ALT/SGPT 99 U/L (12-78); ANION GAP 10 MEQ/L (8-16); AST/SGOT 83 U/L (7-37); BLOOD UREA NITROGEN 40 MG/DL (7-18); CALCIUM LEVEL 8.5 MG/DL (8.8-10.2); CARBON DIOXIDE LEVEL 28 MEQ/L (21-32); CHLORIDE LEVEL 96 MEQ/L (98-107); CREATININE FOR GFR 1.13 MG/DL (0.55-1.30); GLOMERULAR FILTRATION RATE 51.1 (>45); GLUCOSE, FASTING 136 MG/DL (70-100); MAGNESIUM LEVEL 2.3 MG/DL (1.8-2.4); POTASSIUM SERUM 3.9 MEQ/L (3.5-5.1); SODIUM LEVEL 134 MEQ/L (136-145); TOTAL PROTEIN 5.1 GM/DL (6.4-8.2)
[2017-08-14] MEDS: ZINC SULFATE 220 MG CAP PO (08:21)
[2017-08-14] MEDS: OMEPRAZOLE 20 MG CAP PO (08:21)
[2017-08-14] MEDS: CYANOCOBALAMIN 500 MCG TAB PO (08:21)
[2017-08-14] MEDS: THIAMINE 100 MG TAB PO (08:21)
[2017-08-14] MEDS: NADOLOL 20MG TABLET PO (08:22)
[2017-08-14] MEDS: FERROUS SULFATE 325MG TAB PO ×2 (08:22→20:37)
[2017-08-14] MEDS: SPIRONOLACTONE 50 MG TAB PO ×2 (08:22→20:37)
[2017-08-14] MEDS: rifAXIMin 550 MG TAB (XIFAXAN) PO ×2 (08:22→20:36)
[2017-08-14] MEDS: FOLIC ACID 1 MG TAB PO (08:22)
[2017-08-14] MEDS: HumaLOG INSULIN (NovoLOG) PER UNIT SC ×4 (08:22→21:00)
[2017-08-14] MEDS: MULTIVITAMINS CHILDREN'S CHEWABLE TABLET PO ×2 (08:22→20:37)
[2017-08-14] MEDS: TORSEMIDE (DEMADEX) 50 MG PER 1/2 TAB PO (08:22)
[2017-08-14 11:36] LABS: BEDSIDE GLUCOSE 168 MG/DL (80-115)
[2017-08-14 17:01] LABS: BEDSIDE GLUCOSE 143 MG/DL (80-115)
[2017-08-14] MEDS: QUEtiapine FUMARATE 25 MG TAB PO (20:37)
[2017-08-14 21:24] LABS: BEDSIDE GLUCOSE 197 MG/DL (80-115)
[2017-08-15] MEDS: LACTULOSE 20 GM/30 ML SYRUP UD PO ×3 (06:15→21:11)
[2017-08-15] MEDS: SLF 3 ML SYR IV ×3 (06:15→21:11)
[2017-08-15 06:21] LABS: HEMATOCRIT 29.2 % (36.0-47.0); HEMOGLOBIN 9.9 g/dl (12.0-15.5); MEAN CORPUSCULAR HEMOGLOBIN 30.3 pg (27.0-33.0); MEAN CORPUSCULAR HGB CONC 33.9 g/dl (32.0-36.5); MEAN CORPUSCULAR VOLUME 89.3 fl (80.0-96.0); RED BLOOD COUNT 3.27 10^6/uL (4.00-5.40); RED CELL DISTRIBUTION WIDTH 16.3 % (11.5-14.5); WHITE BLOOD COUNT 5.5 10^3/uL (4.0-10.0)
[2017-08-15 06:42] LABS: ALBUMIN 2.7 GM/DL (3.2-5.2); ALBUMIN/GLOBULIN RATIO 1.13 (1.00-1.93); ALKALINE PHOSPHATASE 406 U/L (45-117); ALT/SGPT 92 U/L (12-78); ANION GAP 8 MEQ/L (8-16); AST/SGOT 67 U/L (7-37); BLOOD UREA NITROGEN 42 MG/DL (7-18); CALCIUM LEVEL 8.4 MG/DL (8.8-10.2); CARBON DIOXIDE LEVEL 29 MEQ/L (21-32); CHLORIDE LEVEL 97 MEQ/L (98-107); CREATININE FOR GFR 1.19 MG/DL (0.55-1.30); GLOMERULAR FILTRATION RATE 48.2 (>45); GLUCOSE, FASTING 131 MG/DL (70-100); MAGNESIUM LEVEL 2.4 MG/DL (1.8-2.4); POTASSIUM SERUM 3.9 MEQ/L (3.5-5.1); SODIUM LEVEL 134 MEQ/L (136-145); TOTAL PROTEIN 5.1 GM/DL (6.4-8.2)
[2017-08-15 06:48] LABS: IMMATURE PLATELET FRACTION % 2.4 % (0.0-9.6); PLATELET COUNT, AUTOMATED 97 10^3/uL (150-450); PLATELET F 2.2
[2017-08-15] MEDS: FOLIC ACID 1 MG TAB PO (08:33)
[2017-08-15] MEDS: FERROUS SULFATE 325MG TAB PO (08:33)
[2017-08-15] MEDS: SPIRONOLACTONE 50 MG TAB PO (08:34)
[2017-08-15] MEDS: THIAMINE 100 MG TAB PO (08:34)
[2017-08-15] MEDS: ZINC SULFATE 220 MG CAP PO (08:34)
[2017-08-15] MEDS: MULTIVITAMINS CHILDREN'S CHEWABLE TABLET PO (08:34)
[2017-08-15] MEDS: OMEPRAZOLE 20 MG CAP PO (08:34)
[2017-08-15] MEDS: HumaLOG INSULIN (NovoLOG) PER UNIT SC ×4 (08:34→21:00)
[2017-08-15] MEDS: CYANOCOBALAMIN 500 MCG TAB PO (08:34)
[2017-08-15] MEDS: rifAXIMin 550 MG TAB (XIFAXAN) PO ×2 (08:34→21:11)
[2017-08-15] MEDS: TORSEMIDE (DEMADEX) 50 MG PER 1/2 TAB PO (08:34)
[2017-08-15] MEDS: NADOLOL 20MG TABLET PO (08:36)
[2017-08-15 11:32] LABS: BEDSIDE GLUCOSE 167 MG/DL (80-115)
[2017-08-15 17:06] LABS: BEDSIDE GLUCOSE 166 MG/DL (80-115)
[2017-08-15 19:51] LABS: BEDSIDE GLUCOSE 162 MG/DL (80-115)
[2017-08-15] MEDS: QUEtiapine FUMARATE 25 MG TAB PO (21:11)
[2017-08-16] MEDS: LACTULOSE 20 GM/30 ML SYRUP UD PO ×3 (05:21→20:24)
[2017-08-16] MEDS: SLF 3 ML SYR IV ×3 (05:21→20:24)
[2017-08-16 06:04] LABS: HEMATOCRIT 29.2 % (36.0-47.0); HEMOGLOBIN 9.8 g/dl (12.0-15.5); MEAN CORPUSCULAR HEMOGLOBIN 30.2 pg (27.0-33.0); MEAN CORPUSCULAR HGB CONC 33.6 g/dl (32.0-36.5); MEAN CORPUSCULAR VOLUME 90.1 fl (80.0-96.0); PLATELET COUNT, AUTOMATED 101 10^3/uL (150-450); RED BLOOD COUNT 3.24 10^6/uL (4.00-5.40); RED CELL DISTRIBUTION WIDTH 16.6 % (11.5-14.5); WHITE BLOOD COUNT 6.1 10^3/uL (4.0-10.0)
[2017-08-16 06:30] LABS: ALBUMIN 2.7 GM/DL (3.2-5.2); ALBUMIN/GLOBULIN RATIO 1.08 (1.00-1.93); ALKALINE PHOSPHATASE 415 U/L (45-117); ALT/SGPT 109 U/L (12-78); ANION GAP 7 MEQ/L (8-16); AST/SGOT 90 U/L (7-37); BILIRUBIN,TOTAL 0.9 MG/DL (0.2-1.0); BLOOD UREA NITROGEN 39 MG/DL (7-18); CALCIUM LEVEL 8.3 MG/DL (8.8-10.2); CARBON DIOXIDE LEVEL 29 MEQ/L (21-32); CHLORIDE LEVEL 97 MEQ/L (98-107); CREATININE FOR GFR 1.12 MG/DL (0.55-1.30); GLOMERULAR FILTRATION RATE 51.7 (>45); GLUCOSE, FASTING 200 MG/DL (70-100); MAGNESIUM LEVEL 2.3 MG/DL (1.8-2.4); POTASSIUM SERUM 3.5 MEQ/L (3.5-5.1); PREALBUMIN 17.8 MG/DL (20.0-40.0); SODIUM LEVEL 133 MEQ/L (136-145); TOTAL PROTEIN 5.2 GM/DL (6.4-8.2)
[2017-08-16] MEDS: HumaLOG INSULIN (NovoLOG) PER UNIT SC ×4 (07:58→20:18)
[2017-08-16] MEDS: CYANOCOBALAMIN 500 MCG TAB PO (09:06)
[2017-08-16] MEDS: FOLIC ACID 1 MG TAB PO (09:06)
[2017-08-16] MEDS: NADOLOL 20MG TABLET PO (09:06)
[2017-08-16] MEDS: rifAXIMin 550 MG TAB (XIFAXAN) PO ×2 (09:06→20:23)
[2017-08-16] MEDS: OMEPRAZOLE 20 MG CAP PO (09:40)
[2017-08-16] MEDS: THIAMINE 100 MG TAB PO (09:40)
[2017-08-16] MEDS: ZINC SULFATE 220 MG CAP PO (11:30)
[2017-08-16] MEDS: TORSEMIDE (DEMADEX) 50 MG PER 1/2 TAB PO (11:30)
[2017-08-16 12:02] LABS: BEDSIDE GLUCOSE 91 MG/DL (80-115)
[2017-08-16 16:39] LABS: BEDSIDE GLUCOSE 208 MG/DL (80-115)
[2017-08-16 20:17] LABS: BEDSIDE GLUCOSE 112 MG/DL (80-115)
[2017-08-16] MEDS: QUEtiapine FUMARATE 25 MG TAB PO (20:23)
[2017-08-17] MEDS ORDERED: DEXTROSE 50% 50 ML SYRINGE IV (03:30)
[2017-08-17] MEDS ORDERED: GLUCAGON FOR INJ 1 MG VIAL (J1610) SC (03:30)
[2017-08-17] MEDS ORDERED: ANUSOL HC CREAM 30GM TOP (03:30)
[2017-08-17] MEDS ORDERED: GLUCOSE 4 GM CHEW TABLET PO (03:30)
[2017-08-17] MEDS: LACTULOSE 20 GM/30 ML SYRUP UD PO ×3 (05:12→20:22)
[2017-08-17 07:13] LABS: HEMATOCRIT 30.9 % (36.0-47.0); HEMOGLOBIN 10.3 g/dl (12.0-15.5); MEAN CORPUSCULAR HEMOGLOBIN 30.7 pg (27.0-33.0); MEAN CORPUSCULAR HGB CONC 33.3 g/dl (32.0-36.5); PLATELET COUNT, AUTOMATED 125 10^3/uL (150-450); RED BLOOD COUNT 3.36 10^6/uL (4.00-5.40); RED CELL DISTRIBUTION WIDTH 16.6 % (11.5-14.5); WHITE BLOOD COUNT 7.4 10^3/uL (4.0-10.0)
[2017-08-17 07:33] LABS: ALBUMIN/GLOBULIN RATIO 1.11 (1.00-1.93); ALKALINE PHOSPHATASE 413 U/L (45-117); ALT/SGPT 102 U/L (12-78); ANION GAP 9 MEQ/L (8-16); AST/SGOT 69 U/L (7-37); BILIRUBIN,TOTAL 1.3 MG/DL (0.2-1.0); BLOOD UREA NITROGEN 43 MG/DL (7-18); CALCIUM LEVEL 8.6 MG/DL (8.8-10.2); CARBON DIOXIDE LEVEL 30 MEQ/L (21-32); CHLORIDE LEVEL 96 MEQ/L (98-107); CREATININE FOR GFR 1.44 MG/DL (0.55-1.30); GLOMERULAR FILTRATION RATE 38.7 (>45); GLUCOSE, FASTING 125 MG/DL (70-100); MAGNESIUM LEVEL 2.4 MG/DL (1.8-2.4); POTASSIUM SERUM 3.2 MEQ/L (3.5-5.1); SODIUM LEVEL 135 MEQ/L (136-145); TOTAL PROTEIN 5.7 GM/DL (6.4-8.2)
[2017-08-17] MEDS: THIAMINE 100 MG TAB PO (08:23)
[2017-08-17] MEDS: HumaLOG INSULIN (NovoLOG) PER UNIT SC ×4 (08:23→20:32)
[2017-08-17] MEDS: FERROUS SULFATE 325MG TAB PO ×2 (08:23→20:36)
[2017-08-17] MEDS: FOLIC ACID 1 MG TAB PO (08:23)
[2017-08-17] MEDS: rifAXIMin 550 MG TAB (XIFAXAN) PO ×2 (08:23→20:36)
[2017-08-17] MEDS: OMEPRAZOLE 20 MG CAP PO (08:24)
[2017-08-17] MEDS: CYANOCOBALAMIN 500 MCG TAB PO (08:24)
[2017-08-17] MEDS: SPIRONOLACTONE 50 MG TAB PO ×2 (08:24→17:34)
[2017-08-17] MEDS: ZINC SULFATE 220 MG CAP PO (08:24)
[2017-08-17] MEDS: MULTIVITAMINS CHILDREN'S CHEWABLE TABLET PO ×2 (08:24→20:36)
[2017-08-17] MEDS: NADOLOL 20MG TABLET PO (08:28)
[2017-08-17] MEDS: POTASSIUM CHLORIDE 10 MEQ SR TABLET PO (11:05)
[2017-08-17] MEDS: TORSEMIDE (DEMADEX) 50 MG PER 1/2 TAB PO (11:05)
[2017-08-17 12:06] LABS: BEDSIDE GLUCOSE 164 MG/DL (80-115)
[2017-08-17 16:40] LABS: BEDSIDE GLUCOSE 135 MG/DL (80-115)
[2017-08-17] MEDS: QUEtiapine FUMARATE 25 MG TAB PO (20:36)
[2017-08-17 20:39] LABS: BEDSIDE GLUCOSE 149 MG/DL (80-115)
[2017-08-18 06:39] LABS: BEDSIDE GLUCOSE 147 MG/DL (80-115)
[2017-08-18 08:02] LABS: HEMATOCRIT 31.3 % (36.0-47.0); HEMOGLOBIN 10.5 g/dl (12.0-15.5); MEAN CORPUSCULAR HGB CONC 33.5 g/dl (32.0-36.5); MEAN CORPUSCULAR VOLUME 92.3 fl (80.0-96.0); PLATELET COUNT, AUTOMATED 115 10^3/uL (150-450); RED BLOOD COUNT 3.39 10^6/uL (4.00-5.40); RED CELL DISTRIBUTION WIDTH 16.5 % (11.5-14.5); WHITE BLOOD COUNT 6.5 10^3/uL (4.0-10.0)
[2017-08-18] MEDS: FOLIC ACID 1 MG TAB PO (08:15)
[2017-08-18] MEDS: rifAXIMin 550 MG TAB (XIFAXAN) PO ×2 (08:15→21:19)
[2017-08-18] MEDS: CYANOCOBALAMIN 500 MCG TAB PO (08:15)
[2017-08-18] MEDS: OMEPRAZOLE 20 MG CAP PO (08:15)
[2017-08-18] MEDS: HumaLOG INSULIN (NovoLOG) PER UNIT SC ×4 (08:15→20:52)
[2017-08-18] MEDS: ZINC SULFATE 220 MG CAP PO (08:16)
[2017-08-18] MEDS: MULTIVITAMINS CHILDREN'S CHEWABLE TABLET PO ×2 (08:16→21:19)
[2017-08-18] MEDS: FERROUS SULFATE 325MG TAB PO ×2 (08:16→21:20)
[2017-08-18] MEDS: SPIRONOLACTONE 50 MG TAB PO ×2 (08:16→17:10)
[2017-08-18] MEDS: THIAMINE 100 MG TAB PO (08:16)
[2017-08-18] MEDS: TORSEMIDE (DEMADEX) 50 MG PER 1/2 TAB PO (08:16)
[2017-08-18] MEDS: NADOLOL 20MG TABLET PO (08:16)
[2017-08-18 08:27] LABS: ALBUMIN/GLOBULIN RATIO 1.15 (1.00-1.93); ALKALINE PHOSPHATASE 431 U/L (45-117); ALT/SGPT 93 U/L (12-78); ANION GAP 7 MEQ/L (8-16); AST/SGOT 65 U/L (7-37); BILIRUBIN,TOTAL 1.4 MG/DL (0.2-1.0); BLOOD UREA NITROGEN 41 MG/DL (7-18); CALCIUM LEVEL 8.5 MG/DL (8.8-10.2); CARBON DIOXIDE LEVEL 30 MEQ/L (21-32); CHLORIDE LEVEL 99 MEQ/L (98-107); CREATININE FOR GFR 1.31 MG/DL (0.55-1.30); GLOMERULAR FILTRATION RATE 43.1 (>45); GLUCOSE, FASTING 139 MG/DL (70-100); MAGNESIUM LEVEL 2.4 MG/DL (1.8-2.4); POTASSIUM SERUM 3.5 MEQ/L (3.5-5.1); SODIUM LEVEL 136 MEQ/L (136-145); TOTAL PROTEIN 5.6 GM/DL (6.4-8.2)
[2017-08-18 11:43] LABS: BEDSIDE GLUCOSE 111 MG/DL (80-115)
[2017-08-18 16:30] LABS: BEDSIDE GLUCOSE 171 MG/DL (80-115)
[2017-08-18 20:29] LABS: BEDSIDE GLUCOSE 172 MG/DL (80-115)
[2017-08-18] MEDS: LACTULOSE 20 GM/30 ML SYRUP UD PO (21:19)
[2017-08-18] MEDS: QUEtiapine FUMARATE 25 MG TAB PO (21:20)
[2017-08-19] MEDS: LACTULOSE 20 GM/30 ML SYRUP UD PO ×3 (05:11→21:53)
[2017-08-19 06:26] LABS: HEMATOCRIT 27.8 % (36.0-47.0); HEMOGLOBIN 9.5 g/dl (12.0-15.5); MEAN CORPUSCULAR HEMOGLOBIN 30.7 pg (27.0-33.0); MEAN CORPUSCULAR HGB CONC 34.2 g/dl (32.0-36.5); RED BLOOD COUNT 3.09 10^6/uL (4.00-5.40); RED CELL DISTRIBUTION WIDTH 16.3 % (11.5-14.5); WHITE BLOOD COUNT 5.5 10^3/uL (4.0-10.0)
[2017-08-19 06:47] LABS: ALBUMIN 2.7 GM/DL (3.2-5.2); ALBUMIN/GLOBULIN RATIO 1.17 (1.00-1.93); ALKALINE PHOSPHATASE 424 U/L (45-117); ALT/SGPT 103 U/L (12-78); ANION GAP 10 MEQ/L (8-16); AST/SGOT 93 U/L (7-37); BILIRUBIN,DIRECT 0.3 MG/DL (0.0-0.2); BLOOD UREA NITROGEN 42 MG/DL (7-18); CARBON DIOXIDE LEVEL 26 MEQ/L (21-32); CHLORIDE LEVEL 99 MEQ/L (98-107); GLOMERULAR FILTRATION RATE 47.7 (>45); GLUCOSE, FASTING 144 MG/DL (70-100); MAGNESIUM LEVEL 2.2 MG/DL (1.8-2.4); POTASSIUM SERUM 3.8 MEQ/L (3.5-5.1); SODIUM LEVEL 135 MEQ/L (136-145)
[2017-08-19 06:56] LABS: IMMATURE PLATELET FRACTION % 2.2 % (0.0-9.6); PLATELET COUNT, AUTOMATED 94 10^3/uL (150-450)
[2017-08-19] MEDS: HumaLOG INSULIN (NovoLOG) PER UNIT SC ×4 (07:41→21:43)
[2017-08-19] MEDS: ZINC SULFATE 220 MG CAP PO (09:05)
[2017-08-19] MEDS: NADOLOL 20MG TABLET PO (09:05)
[2017-08-19] MEDS: FERROUS SULFATE 325MG TAB PO ×2 (09:05→21:53)
[2017-08-19] MEDS: OMEPRAZOLE 20 MG CAP PO (09:06)
[2017-08-19] MEDS: rifAXIMin 550 MG TAB (XIFAXAN) PO ×2 (09:06→21:52)
[2017-08-19] MEDS: SPIRONOLACTONE 50 MG TAB PO ×2 (09:06→17:00)
[2017-08-19] MEDS: CYANOCOBALAMIN 500 MCG TAB PO (09:06)
[2017-08-19] MEDS: MULTIVITAMINS CHILDREN'S CHEWABLE TABLET PO ×2 (09:06→21:53)
[2017-08-19] MEDS: THIAMINE 100 MG TAB PO (09:06)
[2017-08-19] MEDS: FOLIC ACID 1 MG TAB PO (09:06)
[2017-08-19] MEDS: TORSEMIDE (DEMADEX) 50 MG PER 1/2 TAB PO (09:09)
[2017-08-19 11:28] LABS: BEDSIDE GLUCOSE 231 MG/DL (80-115)
[2017-08-19 17:19] LABS: BEDSIDE GLUCOSE 96 MG/DL (80-115)
[2017-08-19 19:38] LABS: TYPE AND SCREEN 1
[2017-08-19 20:34] LABS: BEDSIDE GLUCOSE 228 MG/DL (80-115)
[2017-08-19] MEDS: QUEtiapine FUMARATE 25 MG TAB PO (21:53)
[2017-08-20 00:37] LABS: TYPE AND SCREEN 1
[2017-08-20 02:59] LABS: TYPE AND SCREEN 1
[2017-08-20] MEDS: LACTULOSE 20 GM/30 ML SYRUP UD PO (05:05)
[2017-08-20 06:31] LABS: HEMATOCRIT 25.8 % (36.0-47.0); HEMOGLOBIN 8.6 g/dl (12.0-15.5); MEAN CORPUSCULAR HEMOGLOBIN 30.3 pg (27.0-33.0); MEAN CORPUSCULAR HGB CONC 33.3 g/dl (32.0-36.5); MEAN CORPUSCULAR VOLUME 90.8 fl (80.0-96.0); RED BLOOD COUNT 2.84 10^6/uL (4.00-5.40); RED CELL DISTRIBUTION WIDTH 15.9 % (11.5-14.5)
[2017-08-20 06:48] LABS: ALBUMIN 3.3 GM/DL (3.2-5.2); ALKALINE PHOSPHATASE 363 U/L (45-117); ALT/SGPT 83 U/L (12-78); ANION GAP 8 MEQ/L (8-16); AST/SGOT 61 U/L (7-37); BILIRUBIN,DIRECT 0.3 MG/DL (0.0-0.2); BILIRUBIN,TOTAL 1.2 MG/DL (0.2-1.0); BLOOD UREA NITROGEN 42 MG/DL (7-18); CALCIUM LEVEL 8.4 MG/DL (8.8-10.2); CARBON DIOXIDE LEVEL 29 MEQ/L (21-32); CHLORIDE LEVEL 100 MEQ/L (98-107); CREATININE FOR GFR 1.24 MG/DL (0.55-1.30); GLOMERULAR FILTRATION RATE 45.9 (>45); GLUCOSE, FASTING 131 MG/DL (70-100); MAGNESIUM LEVEL 2.4 MG/DL (1.8-2.4); POTASSIUM SERUM 3.3 MEQ/L (3.5-5.1); SODIUM LEVEL 137 MEQ/L (136-145); TOTAL PROTEIN 5.5 GM/DL (6.4-8.2)
[2017-08-20 06:52] LABS: PLATELET COUNT, AUTOMATED 85 10^3/uL (150-450)
[2017-08-20 06:53] LABS: IMMATURE PLATELET FRACTION % 2.1 % (0.0-9.6)
[2017-08-20] MEDS: TORSEMIDE (DEMADEX) 50 MG PER 1/2 TAB PO (09:00)
[2017-08-20] MEDS: SPIRONOLACTONE 50 MG TAB PO (09:00)
[2017-08-20] MEDS: NADOLOL 20MG TABLET PO (09:00)
[2017-08-20] MEDS: THIAMINE 100 MG TAB PO (09:23)
[2017-08-20] MEDS: FOLIC ACID 1 MG TAB PO (09:23)
[2017-08-20] MEDS: HumaLOG INSULIN (NovoLOG) PER UNIT SC ×2 (09:23→12:18)
[2017-08-20] MEDS: POTASSIUM CHLORIDE 10 MEQ SR TABLET PO (09:23)
[2017-08-20] MEDS: MULTIVITAMINS CHILDREN'S CHEWABLE TABLET PO (09:23)
[2017-08-20] MEDS: FERROUS SULFATE 325MG TAB PO (09:24)
[2017-08-20] MEDS: CYANOCOBALAMIN 500 MCG TAB PO (09:24)
[2017-08-20] MEDS: rifAXIMin 550 MG TAB (XIFAXAN) PO (09:24)
[2017-08-20] MEDS: ZINC SULFATE 220 MG CAP PO (09:24)
[2017-08-20] MEDS: OMEPRAZOLE 20 MG CAP PO (09:24)
[2017-08-20 11:58] LABS: BEDSIDE GLUCOSE 141 MG/DL (80-115)
== END 2017-08-20 13:25 | DRG 432 ==
LOC: M MSPAV 07-27 15:26 → M ED 13:06 → M ED INP 17:05 → M PCU 21:05
PROC: 0W9G3ZZ Drainage of Peritoneal Cavity, Percutaneous Approach (ICD-10-PCS; principal; 2017-07-17)
PROC: 30233J1 Transfusion of Nonautologous Serum Albumin into Peripheral Vein, Percutaneous Approach (ICD-10-PCS; 2017-07-17)
PROC: 02HV33Z Insertion of Infusion Device into Superior Vena Cava, Percutaneous Approach (ICD-10-PCS; 2017-07-22)
PROC: 009U3ZX Drainage of Spinal Canal, Percutaneous Approach, Diagnostic (ICD-10-PCS; 2017-07-22)
PROC: 0W9G3ZZ Drainage of Peritoneal Cavity, Percutaneous Approach (ICD-10-PCS; 2017-07-29)
PROC: 0W9G3ZZ Drainage of Peritoneal Cavity, Percutaneous Approach (ICD-10-PCS; 2017-08-11)
PROC: 0W9G3ZZ Drainage of Peritoneal Cavity, Percutaneous Approach (ICD-10-PCS; 2017-08-19)
DX: K74.60 Unspecified cirrhosis of liver (principal); G93.41 Metabolic encephalopathy; R18.8 Other ascites; N39.0 Urinary tract infection, site not specified; K76.6 Portal hypertension; E11.9 Type 2 diabetes mellitus without complications; K21.9 Gastro-esophageal reflux disease without esophagitis; E78.5 Hyperlipidemia, unspecified; I25.2 Old myocardial infarction; Z66 Do not resuscitate; F03.90 Unspecified dementia, unspecified severity, without behavioral disturbance, psychotic disturbance, mood disturbance, and anxiety; D69.6 Thrombocytopenia, unspecified; F29 Unspecified psychosis not due to a substance or known physiological condition; K72.90 Hepatic failure, unspecified without coma; I87.2 Venous insufficiency (chronic) (peripheral); B96.20 Unspecified Escherichia coli [E. coli] as the cause of diseases classified elsewhere; R56.9 Unspecified convulsions; L40.9 Psoriasis, unspecified; Z85.3 Personal history of malignant neoplasm of breast; Z85.79 Personal history of other malignant neoplasms of lymphoid, hematopoietic and related tissues; Z88.2 Allergy status to sulfonamides; Z96.642 Presence of left artificial hip joint; Z79.4 Long term (current) use of insulin; Z79.82 Long term (current) use of aspirin; Z79.899 Other long term (current) drug therapy; Z92.21 Personal history of antineoplastic chemotherapy; Z92.3 Personal history of irradiation

== ENCOUNTER → 2017-07-21 | Outpatient (CLI) | payer MEDICARE ==
[~2017-07-21] MED LIST changes: -/FENT25PA; -/WARF25TA; -ACET65TA; -ASP81 PO; -ASPI1TAB5 PO; -ASPI81TA3; -ASPI81TA31; -ATEN25TA; -ATENOL25 PO; -AVANDIA4 PO; -BUSPAR10 PO; -CALC1TAB40 PO; -CEFT500T PO; -CHERSYP3 PO; -CIPRO500 PO; -COLA100C2; -COMBIN INH; -DURATUSS-G PO; -ENOX40SY; -FERR150C PO; -FURO40TA2; -GLUC500T; -IBUP600T; -IBUP800T; -INSURSD IV; -JANU100T PO; -LASIX20 PO; -LEVAQUI500 PO; -LIPI20TA; -LIPITOR10 PO; -LIPITOR20 PO; -LISI-542 PO; -LORA0.5T; -LOTRISCREA TOPICALLY; -MAGN64TASA PO; -METF1000 PO; -METF500T4; -METFORM100 PO; -METFORM500 PO; -MILKSUS; -MOTR200T4; -MYCOLOG2 TOPICALLY; -NADO40TA; -NITR0.4S; -NITROQUICK; -NITROSTAT4 SL; -NYSTATIN OINT; -OMEP20CA3 PO; -OMEPRAZ20 PO; -PERC5TAB8; -PERCOCET; -PRIL20CA; -PRILOSEC20 PO; +PROHANCE 279.3MG/ML 5ML VIAL (A9576) As Ordered; -PYRIDIU200 PO; -SENO8.6T5; -SILV1CRE19 EX; -SPIR50TA2; -THERGRAN; -VICKS VAPOR RUB; -VICO5TAB; -VITAMIN D; -VITAMIN D50000 UNT; -ZETIA PO; -ZOCO40TA; -ZYLO300T; -[UNRECOGNIZED DRUG - OTHER] PO
== END ==
LOC: M RADPRO 13:00
DX: R18.8 Other ascites (principal); Z53.9 Procedure and treatment not carried out, unspecified reason

== ENCOUNTER → 2017-08-26 | Outpatient (CLI) | payer MEDICARE ==
[2017-08-26 12:10] LABS: TYPE AND SCREEN 1
== END ==
LOC: M RADPRO 13:16
DX: R18.8 Other ascites (principal); K76.6 Portal hypertension; I10 Essential (primary) hypertension; I25.2 Old myocardial infarction; K21.9 Gastro-esophageal reflux disease without esophagitis; Z79.899 Other long term (current) drug therapy; Z88.0 Allergy status to penicillin
CPT/HCPCS: 49083

== ENCOUNTER → 2017-09-02 | Outpatient (REF) | payer SELFPAY, MEDICARE | LOC: M RADPRO 11:51 | DX: R18.8 Other ascites (principal); Z88.2 Allergy status to sulfonamides; Z53.9 Procedure and treatment not carried out, unspecified reason ==

== ENCOUNTER → 2017-09-17 | Outpatient (CLI) | payer MEDICARE | LOC: M RAD 09:07 | DX: R18.8 Other ascites (principal) | CPT/HCPCS: 76705 ==

== ENCOUNTER → 2017-09-23 | Outpatient (REF) | payer MEDICARE ==
[2017-09-23 13:34] LABS: ANION GAP 13 MEQ/L (8-16); BLOOD UREA NITROGEN 40 MG/DL (7-18); CALCIUM LEVEL 8.8 MG/DL (8.8-10.2); CARBON DIOXIDE LEVEL 26 MEQ/L (21-32); CHLORIDE LEVEL 99 MEQ/L (98-107); CREATININE FOR GFR 1.14 MG/DL (0.55-1.30); GLOMERULAR FILTRATION RATE 50.6 (>45); GLUCOSE, FASTING 101 MG/DL (70-100); POTASSIUM SERUM 3.7 MEQ/L (3.5-5.1); SODIUM LEVEL 138 MEQ/L (136-145)
== END ==
LOC: SKLAB7 10:37
DX: D64.9 Anemia, unspecified (principal); K74.60 Unspecified cirrhosis of liver; R18.8 Other ascites
CPT/HCPCS: 80048

== ENCOUNTER → 2017-10-10 | Outpatient (REF) | payer MEDICARE ==
[2017-10-10 18:01] LABS: AMMONIA 62 uMOL/L (<32)
== END ==
LOC: M LAB REF 17:15
DX: I85.01 Esophageal varices with bleeding (principal)
CPT/HCPCS: 82140

== ENCOUNTER → 2017-10-27 | Outpatient (CLI) | payer MEDICARE | LOC: M RADPRO 12:44 | DX: K74.60 Unspecified cirrhosis of liver (principal); K76.6 Portal hypertension; R18.8 Other ascites; I10 Essential (primary) hypertension; K21.9 Gastro-esophageal reflux disease without esophagitis; E11.9 Type 2 diabetes mellitus without complications; I25.2 Old myocardial infarction; Z79.82 Long term (current) use of aspirin; Z79.84 Long term (current) use of oral hypoglycemic drugs; Z79.899 Other long term (current) drug therapy; Z88.2 Allergy status to sulfonamides; Z88.8 Allergy status to other drugs, medicaments and biological substances; Z85.3 Personal history of malignant neoplasm of breast; Z98.890 Other specified postprocedural states; Z90.49 Acquired absence of other specified parts of digestive tract | CPT/HCPCS: 49083 ==

== ENCOUNTER → 2017-11-26 | Outpatient (CLI) | payer MEDICARE ==
[2017-11-26 12:36] LABS: TYPE AND SCREEN 1
== END ==
LOC: M RADPRO 11:57
DX: K74.60 Unspecified cirrhosis of liver (principal); K76.6 Portal hypertension; R18.8 Other ascites
CPT/HCPCS: 49083

== ENCOUNTER → 2017-12-22 | Outpatient (CLI) | payer MEDICARE ==
[2017-12-22 12:41] LABS: TYPE AND SCREEN 1
== END ==
LOC: M RADPRO 12:17
DX: R18.8 Other ascites (principal); K76.6 Portal hypertension; K74.60 Unspecified cirrhosis of liver
CPT/HCPCS: 49083

== ENCOUNTER → 2018-01-19 | Outpatient (CLI) | payer MEDICARE ==
[2018-01-19 12:36] LABS: TYPE AND SCREEN 1
== END ==
LOC: M RADPRO 12:08
DX: K74.60 Unspecified cirrhosis of liver (principal); K76.6 Portal hypertension; R18.8 Other ascites
CPT/HCPCS: 49083

== ENCOUNTER → 2018-02-09 | Outpatient (CLI) | payer MEDICARE ==
[2018-02-09 12:02] LABS: TYPE AND SCREEN 1
== END ==
LOC: M RADPRO 12:11
DX: K74.60 Unspecified cirrhosis of liver (principal); K76.6 Portal hypertension; R18.8 Other ascites
CPT/HCPCS: 49083

== ENCOUNTER → 2018-02-17 | Outpatient (CLI) | payer MEDICARE | LOC: M RAD 17:40 | DX: R18.8 Other ascites (principal); N81.2 Incomplete uterovaginal prolapse | CPT/HCPCS: 76856 ==

== ENCOUNTER → 2018-02-25 | Outpatient (REF) | payer MEDICARE ==
[2018-02-25 17:32] LABS: AMMONIA 16 uMOL/L (<32)
== END ==
LOC: M LAB REF 16:39
DX: K74.60 Unspecified cirrhosis of liver (principal)
CPT/HCPCS: 82140

== ENCOUNTER → 2018-03-02 | Outpatient (CLI) | payer MEDICARE ==
[2018-03-02 13:13] LABS: TYPE AND SCREEN 1
== END ==
LOC: M RADPRO 12:35
DX: K74.60 Unspecified cirrhosis of liver (principal); K76.6 Portal hypertension; R18.8 Other ascites; Z79.899 Other long term (current) drug therapy; Z88.2 Allergy status to sulfonamides
CPT/HCPCS: 49083

== ENCOUNTER 2018-04-12 16:46 | Inpatient (IN) | payer MEDICARE ==
[~2018-04-12] VITALS: Ht 154.9 cm; Wt 71.4 kg
[~2018-04-12 16:46] MED LIST changes: +/FENT25PA; +/WARF25TA; +ACET65TA; +ANUS2.5C2 PR; +ANUS25SU PR; +ASP81 PO; +ASPI1TAB PO; +ASPI1TAB5 PO; +ASPI81TA3; +ASPI81TA31; +ATEN25TA; +ATEN25TA PO; +ATENOL25 PO; +AVANDIA4 PO; +BUSPAR10 PO; +CALC1TAB40 PO; +CEFT500T PO; +CHERSYP3 PO; +CIPRO500 PO; +COLA100C2; +COMBIN INH; +DURATUSS-G PO; +ENOX40SY; +FERR150C PO; +FERR1TAB8 PO; +FURO40TA2; +FURO40TA2 PO; +GLUC500T; +IBUP600T; +IBUP800T; +INSURSD IV; +IRON65TA PO; +JANU100T PO; +LACT10SO3 PO; +LASIX20 PO; +LEVAQUI500 PO; +LIPI20TA; +LIPITOR10 PO; +LIPITOR20 PO; +LISI-542 PO; +LORA0.5T; +LOTRISCREA TOPICALLY; +MAGN400T2 PO; +MAGN64TASA PO; +METF1000 PO; +METF500T4; +METFORM100 PO; +METFORM500 PO; +MILKSUS; +MOTR200T4; +MYCOLOG2 TOPICALLY; +NADO20TA PO; +NADO40TA; +NADO40TA PO; +NITR0.4S; +NITROQUICK; +NITROSTAT4 SL; +NYSTATIN OINT; +OMEP20CA3 PO; +OMEP40CA2 PO; +OMEPRAZ20 PO; +ONDA4TAB6 PO; +PERC5TAB8; +PERCOCET; +PRIL20CA; +PRILOSEC20 PO; +PROC2.5C PR; -PROHANCE 279.3MG/ML 5ML VIAL (A9576) As Ordered; +PYRIDIU200 PO; +QUET1TAB7 PO; +SENO8.6T5; +SILV1CRE19 EX; +SPIR50TA4; +SPIR50TA4 PO; +THERGRAN; +THIA100T7 PO; +TORS100T PO; +VICKS VAPOR RUB; +VICO5TAB; +VITA500T53 PO; +VITACHTA PO; +VITAMIN D; +VITAMIN D50000 UNT; +XIFA550T PO; +ZETIA PO; +ZOCO40TA; +ZOFR4TAB14 PO; +ZYLO300T; +[UNRECOGNIZED DRUG - OTHER] PO
[2018-04-12] MEDS ORDERED: NS 1,000 ML IV SCH ×2 (17:08→19:45)
[2018-04-12 18:22] LABS: BASO % 0.1 % (0.0-1.0); EOS % 0.1 % (0.0-3.0); HEMATOCRIT 37.4 % (36.0-47.0); HEMOGLOBIN 12.7 g/dl (12.0-15.5); LYMPH # 0.7 10^3/uL (1.5-4.5); LYMPH % 4.4 % (24.0-44.0); MEAN CORPUSCULAR HEMOGLOBIN 28.3 pg (27.0-33.0); MEAN CORPUSCULAR VOLUME 83.5 fl (80.0-96.0); MONO % 6.1 % (0.0-5.0); NEUTROPHILS # 14.8 10^3/uL (1.8-7.7); NEUTROPHILS % 88.3 % (36.0-66.0); PLATELET COUNT, AUTOMATED 241 10^3/uL (150-450); RED BLOOD COUNT 4.48 10^6/uL (4.00-5.40); WHITE BLOOD COUNT 16.7 10^3/uL (4.0-10.0)
[2018-04-12 18:48] LABS: ALBUMIN 2.1 GM/DL (3.2-5.2); BILIRUBIN,DIRECT 0.4 MG/DL (0.0-0.2); BILIRUBIN,TOTAL 1.3 MG/DL (0.2-1.0); CALCIUM LEVEL 8.6 MG/DL (8.8-10.2); CREATININE FOR GFR 2.2 MG/DL (0.55-1.30); GLOMERULAR FILTRATION RATE 23.7 (>45); POTASSIUM SERUM 3.7 MEQ/L (3.5-5.1)
[2018-04-12] MEDS ORDERED: VITA10002 PO (19:46)
[2018-04-12] MEDS ORDERED: LACT10SO3 PO (19:46)
[2018-04-12] MEDS ORDERED: QUET1TAB7 PO ×2 (19:46→19:48)
[2018-04-12] MEDS ORDERED: NADO20TA PO (19:46)
[2018-04-12] MEDS ORDERED: LOPE2CAP PO (19:50)
[2018-04-12] MEDS ORDERED: ANUSOL HC CREAM 30GM PR PRN (20:00)
[2018-04-12 20:10] LABS: C REACTIVE PROTEIN QUANTITATIV 25.2 MG/DL (0.00-0.30)
[2018-04-12] MEDS: FERROUS SULFATE 325MG TAB PO SCH (21:16)
[2018-04-13 06:30] LABS: HEMATOCRIT 35.7 % (36.0-47.0); HEMOGLOBIN 11.8 g/dl (12.0-15.5); MEAN CORPUSCULAR HEMOGLOBIN 27.9 pg (27.0-33.0); MEAN CORPUSCULAR HGB CONC 33.1 g/dl (32.0-36.5); MEAN CORPUSCULAR VOLUME 84.4 fl (80.0-96.0); PLATELET COUNT, AUTOMATED 281 10^3/uL (150-450); RED BLOOD COUNT 4.23 10^6/uL (4.00-5.40); WHITE BLOOD COUNT 18.9 10^3/uL (4.0-10.0)
[2018-04-13 06:56] LABS: CALCIUM LEVEL 8.5 MG/DL (8.8-10.2); GLOMERULAR FILTRATION RATE 26.5 (>45); POTASSIUM SERUM 3.4 MEQ/L (3.5-5.1)
[2018-04-13 07:58] LABS: C REACTIVE PROTEIN QUANTITATIV 26.1 MG/DL (0.00-0.30)
[2018-04-13] MEDS ORDERED: POTASSIUM CHLORIDE 10 MEQ SR TABLET PO ONE ×2 (08:00→10:00)
[2018-04-13] MEDS: CYANOCOBALAMIN 500 MCG TAB PO SCH (08:15)
[2018-04-13] MEDS: rifAXIMin 550 MG TAB (XIFAXAN) PO SCH (08:16)
[2018-04-13] MEDS: NADOLOL 20MG TABLET PO SCH (08:16)
[2018-04-13] MEDS: OMEPRAZOLE 20 MG CAP PO SCH (08:16)
[2018-04-13] MEDS: QUEtiapine FUMARATE 25 MG TAB PO SCH (08:17)
[2018-04-13] MEDS: FERROUS SULFATE 325MG TAB PO SCH ×2 (08:33→20:35)
--- NOTE | 2018-04-13 11:27 | HPE ---
DATE OF ADMISSION: 04/12/2018 CHIEF COMPLAINT: Watery diarrhea for the last 3 days. HISTORY OF PRESENT ILLNESS: The patient is a 67-year-old female with significant past medical history of cirrhosis. The cause is unknown, as per the patient. She has no history of alcohol abuse, diabetes. She is not on any medication. Questionable history of congestive heart failure (CHF) as per documentation. The patient states she has no underlying heart disease. Also, a seizure disorder is mentioned in her previous histories and physicals (H's and P's). The patient states that she has never had any seizures. She presents to the emergency room with 3-4 loose stools per day for the last 3-4 days, nonbloody nonmucoid stools. She denies any abdominal pain. She denies any nausea or vomiting. She denies any cough, fevers, chills, chest pain, shortness of breath. Notably, in the patient's history, she follows with gastroenterology, Dr. Bullock. She is on lactulose and rifaximine. She has no recent hospitalizations. Rifaximine is the only antibiotic she takes. She has no other risk factors for Clostridium (C) difficile. She does have a white count of 17. She gets paracentesis every 2 weeks. Her next schedule is 04/14/2018 on Friday. She comes in as an outpatient and has it done. She is being possibly prepared for a transjugular intrahepatic portosystemic shunt (TIPS) procedure. States she will find out more about it upcoming November of 2018. She does not appear toxic on examination. Thus far, she has been unable to give her stool sample for collection since being in the emergency room. PAST MEDICAL HISTORY: See history of present illness (HPI). PAST SURGICAL HISTORY: She has had a hip replacement. She has had a lumpectomy followed by chemotherapy and radiation for breast cancer. She had cholecystectomy. ALLERGIES: To SULFA, SULFA DRUG CROSS-REACTORS (reaction is unknown). HOME MEDICATIONS: - torsemide - spironolactone - lactulose - rifaximine - Seroquel - omeprazole - nadolol - hydrocortisone cream for hemorrhoids - iron - B12 SOCIAL HISTORY: She denies tobacco, alcohol, illicit drug use. FAMILY HISTORY: Of stroke. REVIEW OF SYSTEMS: A 12-point review of systems was completed, all of which were negative except those listed in the HPI. VITAL SIGNS ON ADMISSION: Temperature 96.4, pulse 58, respirations of 23, saturating at 90% on room air, blood pressure 115/60. PHYSICAL EXAMINATION: GENERAL: She is in no apparent distress. Slightly cachectic female. HEAD: Is normocephalic, atraumatic. EYES: Extraocular movements are intact. Pupils equal, round, and reactive to light. NECK: Is supple. No jugular venous pressure (JVP). LUNGS: Good air entry on the anterior chest. No crackles or wheezing. CARDIOVASCULAR: Regular rate and rhythm. Normal S1, S2. No murmurs, gallops, or rub. ABDOMEN: Is distended. At least moderate to severe ascites but no rebound and no guarding, benign, nonpainful. Bowel sounds hypoactive. EXTREMITIES: Trace pitting edema. No calf tenderness. SKIN: Is intact. No rashes, lesions, or breakdown. NEUROLOGICAL EXAMINATION: She is alert and oriented times three. No focal deficit appreciated on examination. LABORATORIES AND IMAGING: Done in the emergency department (ED). White count of 16.7, hemoglobin and hematocrit of 12/37, platelet count of 241. Chemistry shows a BUN and creatinine of 64/2.2, baseline creatinine is unknown, she was 1.2 several months ago, sodium of 131, chloride of 83, total bilirubin (T Bili) of 1.3, direct bilirubin of 0.4, alkaline phosphatase of 232. No imaging was completed on this admission. ASSESSMENT AND PLAN: 1. Diarrhea, possibly due to lactulose-induced. Will rule out infectious versus inflammatory cause of the diarrhea. Will send an erythrocyte sedimentation rate (ESR), C-reactive protein (CRP), gastrointestinal (GI) panel for stool culture, stool for Clostridium (C) difficile. The patient does not appear toxic. Will hold off on the initiation of antibiotics. Will hold lactulose. Will hold torsemide. Will also hold spironolactone. Will hold loperamide just in case this is infectious diarrhea. Again, once a GI panel is finalized, the patient can be started on antibiotics. 2. Acute renal failure, likely secondary to dehydration. Will fluid hydrate. Will send urine electrolytes. Will trend renal function daily. 3. History of cirrhosis with varices. Continue her nadolol. Continue her rifaximin. Spironolactone and torsemide on hold. The patient will need paracentesis this upcoming Friday. She gets it every 2 weeks. 04/14/2018. 4. History of breast cancer, status post lumpectomy, chemotherapy, and radiation. Stable. 5. History of acid reflux. Continue omeprazole. 6. Mood disorder. Continue her Seroquel. 7. Supportive deep venous thrombosis (DVT) prophylaxis, sequential compression devices (SCDs). 8. Gastrointestinal (GI) prophylaxis. She is on omeprazole. DIET: Is hepatic diet, fluid restriction to less than 2 liters per day. MTDD
[2018-04-13 13:50] VITALS: BP 102/69
[2018-04-13] MEDS ORDERED: LIDOCAINE 1% MDV 20ML VIAL As Ordered ONE (14:47)
--- NOTE | 2018-04-13 14:50 | IPNPDOC ---
Date Seen The patient was seen on 04/13/18. Progress Note SUBJECTIVE: Patient is a 67-year-old female with diarrhea. Patient is evaluated at bedside this morning. She states that she has had no changes to her diet. Her had similar symptoms, but his diarrhea has since resolved. She states that her diarrhea has improved. She denies chest pain, shortness of breath, nausea, vomiting, abdominal pain. Further denies bleeding from any orifice. OBJECTIVE PHYSICAL EXAMINATION: VITAL SIGNS: Please see below. GENERAL: Darkly skinned, frail female, alert and conversant, appropriately dressed in hospital attire, answers questions appropriately, no acute distress. HEENT: Atraumatic, normocephalic, PERRL, EOMI, oral mucosa appears somewhat dry, nasal septum is midline, nares are patent. CARDIOVASCULAR: Regular rate and rhythm, normal S1 and S2, no murmur, rub, click. RESPIRATORY: Clear to auscultation bilaterally, adequate inspiratory and expiratory airway excursion, symmetric airway entry, no focal consolidations, no wheeze, rhonchi, crackles. ABDOMINAL: Significantly distended, tympanic throughout, difficult to appreciate organomegaly, difficult to appreciate rebound or guarding, bowel sounds diminished throughout. EXTREMITIES: No clubbing, no cyanosis, no peripheral edema, peripheral pulses equal and symmetrical, +2. NEUROLOGICAL: No focal neurological deficits. PSYCHOLOGICAL: Mood and affect appropriate. LABORATORY DATA, IMAGING STUDIES, MICROBIOLOGY: Please see below. DVT prophylaxis ordered?: TEDs, sequentials; activity as tolerated. ASSESSMENT AND PLAN: This is a 67-year-old female with diarrhea. PROBLEMS: 1. Diarrhea: GI panel has been ordered. Holding Lactulose. Continue Rifaximin. ESR is within normal limits. CRP is elevated. Lipase is normal. Holding Loperamide. 2. Renal insufficiency: Baseline creatinine approximately 1.2. Likely secondary to dehydration, but could be secondary to hepatorenal syndrome given patient's cirrhosis. Will obtain urine electrolytes. 3. Electrolyte derangements (hypokalemia, hyponatremia, hypocalcemia): Could be secondary to diarrhea and resulting dehydration. Potassium supplementation provided. Monitor sodium with daily labs. Corrected calcium is 10.1. No need for supplementation. 4. Cirrhosis with abdominal ascites and varices: Continue Nadolol and Rifaximin. Ordered paracentesis with albumin administration. Ordered p eritoneal fluid analysis. Possible SBP. Patient has underlying leukocytosis. Afebrile without tachycardia or hypotension. Holding Spironolactone and Lasix. Fluid restriction of 2L/day. 6. Iron deficiency: Continue Ferrous sulfate. Likely secondary to cirrhosis. 7. Hemorrhoids: Continue Proctosol. 8. Vitamin B12 deficiency: Continue daily supplementation. Could be secondary to cirrhosis. 9. Gastroesophageal reflux disease: Continue Prilosec. DISPOSITION: Paracentesis. VS, I&O, 24H, Fishbone Vital Signs/I&O Vital Signs Date Time Temp Pulse Resp B/P (MAP) Pulse Ox O2 Delivery O2 Flow Rate FiO2 04/13/18 12:50 97.6 67 18 120/69 (86) 96 Room Air I&O- Last 24 Hours up to 6 AM 04/13/18 05:59 Intake Total 1200 ml Output Total 300 ml Balance 900 ml Laboratory Data 24H LABS Laboratory Tests 2 04/12/18 18:10: Immature Granulocyte % (Auto) 1.0, White Blood Count 16.7H, Red Blood Count 4.48, Hemoglobin 12.7, Hematocrit 37.4, Mean Corpuscular Volume 83.5, Mean Corpuscular Hemoglobin 28.3, Mean Corpuscular Hemoglobin Concent 34.0, Red Cell Distribution Width 14.3, Platelet Count 241, Neutrophils (%) (Auto) 88.3H, Lymphocytes (%) (Auto) 4.4L, Monocytes (%) (Auto) 6.1H, Eosinophils (%) (Auto) 0.1, Basophils (%) (Auto) 0.1, Neutrophils # (Auto) 14.8H, Lymphocytes # (Auto) 0.7L, Monocytes # (Auto) 1.0H, Eosinophils # (Auto) 0.0, Basophils # (Auto) 0.0, Nucleated Red Blood Cells % (auto) 0.0, Erythrocyte Sedimentation Rate 12, Anion Gap 10, Glomerular Filtration Rate 23.7L, Calcium Level 8.6L, Aspartate Amino Transf (AST/SGOT) 31, Alanine Aminotransferase (ALT/SGPT) 26, Alkaline Phosphatase 232H, Total Bilirubin 1.3H, Direct Bilirubin 0.4H, C-Reactive Protein, Quantitative 25.20H, Total Protein 5.0L, Albumin 2.1L, Albumin/Globulin Ratio 0.72L, Lipase 138 04/13/18 06:06: Nucleated Red Blood Cells % (auto) 0.0, Anion Gap 11, Glomerular Filtration Rate 26.5L, Calcium Level 8.5L, C-Reactive Protein, Quantitative 26.10H, Blood Urea Nitrogen 62H, Creatinine 2.00H, Sodium Level 131L, Potassium Level 3.4L, Chloride Level 86L, Carbon Dioxide Level 34H CBC/BMP Laboratory Tests 04/12/18 18:10 Red Blood Count 4.48, Mean Corpuscular Volume 83.5, Mean Corpuscular Hemoglobin 28.3, Mean Corpuscular Hemoglobin Concent 34.0, Red Cell Distribution Width 14.3, Neutrophils (%) (Auto) 88.3 H, Lymphocytes (%) (Auto) 4.4 L, Monocytes (%) (Auto) 6.1 H, Eosinophils (%) (Auto) 0.1, Basophils (%) (Auto) 0.1, Neutrophils # (Auto) 14.8 H, Lymphocytes # (Auto) 0.7 L, Monocytes # (Auto) 1.0 H, Eosinophils # (Auto) 0.0, Basophils # (Auto) 0.0 04/13/18 06:06 Red Blood Count 4.23, Mean Corpuscular Volume 84.4, Mean Corpuscular Hemoglobin 27.9, Mean Corpuscular Hemoglobin Concent 33.1, Red Cell Distribution Width 14.4, Calcium Level 8.5 L ANEL HUSSEIN DO Apr 13, 2018 14:49
[2018-04-13 15:30] LABS: SPEC. GRAVITY BODY FLUIDS 1.016 (NOT ESTABLISHED)
[2018-04-13 15:42] LABS: APPEARANCE, BODY FLUID CLEAR (CLEAR); PERITONEAL FL COLOR PALE YELLOW (COLORLESS); SOURCE, BODY FLUID PERITONEAL
[2018-04-13 15:52] LABS: SOURCE, BODY FLUID ALBUMIN PERITONEAL; SOURCE, BODY FLUID GLUCOSE PERITONEAL; SOURCE, BODY FLUID TOT PROTEIN PERITONEAL; TOTAL PROTEIN, BODY FLUID 1.3 G/DL (NOT ESTABLISHED)
[2018-04-13 16:33] VITALS: BP 91/54
--- NOTE | 2018-04-13 19:13 | REP ---
Ultrasound-guided paracentesis The procedure was performed under the direct supervision of Dr. Lincoln. The risks and benefits of the procedure were explained to the patient and informed consent was obtained. The largest pocket of fluid was localized in the right flank using ultrasound guidance. The skin was prepped and draped in a sterile fashion. 1% lidocaine was used as a local anesthetic. An 8-Nepali multi side-hole catheter was inserted using trocar technique. 9800 ml of yellow fluid was withdrawn with a sample sent to the lab for analysis. The patient tolerated the procedure well and there were no immediate complications. After the appropriate amount of monitored convalescence the patient was discharged from the department. Reviewed by JACQUE Castillo 04/13/2018 04:23 P Electronically Signed by Myles Lincoln MD 04/13/2018 07:04 P
[2018-04-13 22:00] VITALS: BP 95/52
[2018-04-14 05:48] LABS: HEMATOCRIT 29.4 % (36.0-47.0); HEMOGLOBIN 9.7 g/dl (12.0-15.5); MEAN CORPUSCULAR HEMOGLOBIN 28.2 pg (27.0-33.0); MEAN CORPUSCULAR VOLUME 85.5 fl (80.0-96.0); PLATELET COUNT, AUTOMATED 128 10^3/uL (150-450); RED BLOOD COUNT 3.44 10^6/uL (4.00-5.40); WHITE BLOOD COUNT 8.4 10^3/uL (4.0-10.0)
[2018-04-14 06:00] VITALS: BP 101/58
[2018-04-14 06:24] LABS: CALCIUM LEVEL 8.4 MG/DL (8.8-10.2); CREATININE FOR GFR 1.63 MG/DL (0.55-1.30); GLOMERULAR FILTRATION RATE 33.5 (>45); POTASSIUM SERUM 4.3 MEQ/L (3.5-5.1)
[2018-04-14] MEDS: LACTULOSE 20 GM/30 ML SYRUP UD PO SCH ×3 (08:58→20:54)
[2018-04-14] MEDS: NADOLOL 20MG TABLET PO SCH (09:00)
[2018-04-14] MEDS: CYANOCOBALAMIN 500 MCG TAB PO SCH (09:00)
[2018-04-14] MEDS: FERROUS SULFATE 325MG TAB PO SCH ×2 (09:00→20:54)
[2018-04-14] MEDS ORDERED: FLUBLOK(EGG FREE)(QUAD)INFLUENZA VACC 0.5ML SYRINGE (90682)18YRS&OLDER IM ONE (09:00)
[2018-04-14] MEDS: rifAXIMin 550 MG TAB (XIFAXAN) PO SCH (09:00)
[2018-04-14] MEDS: QUEtiapine FUMARATE 25 MG TAB PO SCH (09:01)
[2018-04-14] MEDS: OMEPRAZOLE 20 MG CAP PO SCH (09:01)
[2018-04-14 09:24] LABS: ALBUMIN 3.3 GM/DL (3.2-5.2); C REACTIVE PROTEIN QUANTITATIV 17.1 MG/DL (0.00-0.30)
[2018-04-14] MEDS: cefTRIAXone SOD 2 GM in D5W MINI-BAG PLUS 50 ML IV SCH (10:27)
--- NOTE | 2018-04-14 11:45 | IPNPDOC ---
Date Seen The patient was seen on 04/14/18. Progress Note SUBJECTIVE: Patient is a 67-year-old female with diarrhea. Patient is evaluated at bedside this morning. Status post paracentesis with 9.8 L removed. Status post 8 units of albumin received. Patient states that she has not had any more bowel movements since admission to the hospital. She does appear, at times, somewhat tangential. Denies hematemesis, hemoptysis, melena, hematochezia, hematuria. Further denies chest pain or shortness of breath. OBJECTIVE PHYSICAL EXAMINATION: VITAL SIGNS: Please see below. GENERAL: Darkly skinned, frail female, alert and conversant although somewhat tangential at times, appropriately dressed in hospital attire, answers questions appropriately, no acute distress. HEENT: Atraumatic, normocephalic, PERRL, EOMI, oral mucosa appears somewhat dry, nasal septum is midline, nares are patent. CARDIOVASCULAR: Regular rate and rhythm, normal S1 and S2, no murmur, rub, click. RESPIRATORY: Clear to auscultation bilaterally, adequate inspiratory and expiratory airway excursion, symmetric airway entry, no focal consolidations, no wheeze, rhonchi, crackles. ABDOMINAL: Abdominal distention significantly improved, no pain with palpation, nondistended, bowel sounds appreciated, no rebound, no guarding, no organomegaly. EXTREMITIES: No clubbing, no cyanosis, no peripheral edema, peripheral pulses equal and symmetrical, +2. NEUROLOGICAL: No focal neurological deficits. PSYCHOLOGICAL: Mood and affect appropriate. LABORATORY DATA, IMAGING STUDIES, MICROBIOLOGY: Please see below. Ultrasound-guided paracentesis on 04/13/2018 - 9800 mL of yellow fluid withdrawn. DVT prophylaxis ordered?: TEDs, sequentials; activity as tolerated. ASSESSMENT AND PLAN: This is a 67-year-old female with diarrhea. PROBLEMS: 1. Diarrhea: No diarrhea documented since admission. Gastrointestinal panel has been discontinued. Started lactulose with orders to maintain 2-3 bowel movements daily. Continue Rifaximin. ESR yesterday within normal limits. CRP improving. Lipase within normal limits. Holding loperamide for the time being. 2. Renal insufficiency: Baseline creatinine approximately 1.2. Creatinine this morning 1.63 which is improved from yesterday. Monitor daily BMPs. Have ordered urine electrolytes. 3. Electrolyte derangements: Resolved. Corrected calcium is 9. Monitor daily labs. 4. Cirrhosis with abdominal ascites and varices with possible spontaneous bacterial peritonitis: Continue Nadolol and Rifaximin. Paracentesis performed yesterday removed 9800 mL of yellow-colored fluid. Patient received 8 units of albumin. Fluid analysis revealed 381 polymorphonuclear cells. Patient did have leukocytosis yesterday. Concern for spontaneous bacterial peritonitis. Have empirically started ceftriaxone 2 g IV every 24 hours. Patient remains afebrile without tachycardia. Her blood pressures somewhat low. Will continue to monitor. Holding spironolactone and Lasix. Fluid restriction of 2 L per day. 6. Normocytic anemia with thrombocytopenia: Peripheral smear obtained which revealed "normocytic anemia and thrombocytopenia in a patient with history of cirrhosis, recent onset, GI bleed should be ruled out. No morphologic abnormalities are noted." Stool for occult blood has been ordered. Absolute reticulocyte count is 1.4 with a reticulocyte index 0.93 which can indicate possible hypoproliferation. Continue Ferrous sulfate. Iron studies have been ordered. 7. Direct hyperbilirubinemia: AST and ALT within normal limits. Likely secondary to cirrhosis. Renal function is improving. 8. Hemorrhoids: Continue Proctosol. 9. Vitamin B12 deficiency: Continue daily supplementation. Could be secondary to cirrhosis. 10. Gastroesophageal reflux disease: Continue Prilosec. DISPOSITION: Pending clinical improvement. VS, [facility] Vital Signs Date Time Temp Pulse Resp B/P (MAP) Pulse Ox O2 Delivery O2 Flow Rate FiO2 04/14/18 09:00 69 109/56 04/14/18 06:00 97.0 15 93 Room Air I&O- Last 24 Hours up to 6 AM 04/14/18 06:00 Intake Total 800 ml Output Total 0 ml Balance 800 ml Laboratory Data 24H LABS Laboratory Tests 2 04/14/18 05:22: Reticulocyte # (auto) 69.5, Nucleated Red Blood Cells % (auto) 0.0, Differential Slide Review Report, Peripheral Blood Smear Path Consult PERIPHERAL SMEAR, Percent Reticulocyte Count 2.0H, Reticulocyte Hemoglobin Equivalent 32.3, Anion Gap 9, Glomerular Filtration Rate 33.5L, Blood Urea Nitrogen 50H, Creatinine 1.63H, Sodium Level 135L, Potassium Level 4.3#, Chloride Level 90L, Carbon Dioxide Level 36H, Calcium Level 8.4L, C-Reactive Protein, Quantitative 17.10H, Albumin 3.3# 04/14/18 09:02: Ammonia 20 CBC/BMP Laboratory Tests 04/14/18 05:22 Red Blood Count 3.44 L, Mean Corpuscular Volume 85.5, Mean Corpuscular Hemoglobin 28.2, Mean Corpuscular Hemoglobin Concent 33.0, Red Cell Distribution Width 14.5, Calcium Level 8.4 L Microbiology Microbiology 04/13/18 Fungal Smear, Received Pending 04/13/18 Fungal Culture, Received Pending 04/13/18 Gram Stain - Final, Resulted 04/13/18 Body Fluid Culture, Resulted Pending 04/13/18 Anaerobic Culture, Received Pending 04/13/18 Acid Fast Stain, Received Pending 04/13/18 Mycobacterial Culture, Received Pending ANEL HUSSEIN DO Apr 14, 2018 11:45
[2018-04-14 12:36] LABS: PERCENT SATURATION 32.3 % (13.2-45.0)
[2018-04-14 12:42] LABS: FOLATE 4.2 NG/ML (>5.4)
[2018-04-14 14:00] VITALS: BP 106/61
[2018-04-14 22:00] VITALS: BP 108/56
[2018-04-15] MEDS: LACTULOSE 20 GM/30 ML SYRUP UD PO SCH ×3 (05:32→19:57)
[2018-04-15 06:00] VITALS: BP 125/58
[2018-04-15 06:00] LABS: HEMATOCRIT 32.4 % (36.0-47.0); HEMOGLOBIN 10.5 g/dl (12.0-15.5); MEAN CORPUSCULAR HEMOGLOBIN 28.5 pg (27.0-33.0); MEAN CORPUSCULAR HGB CONC 32.4 g/dl (32.0-36.5); PLATELET COUNT, AUTOMATED 125 10^3/uL (150-450); RED BLOOD COUNT 3.68 10^6/uL (4.00-5.40); WHITE BLOOD COUNT 7.7 10^3/uL (4.0-10.0)
[2018-04-15 06:26] LABS: CALCIUM LEVEL 8.6 MG/DL (8.8-10.2); CREATININE FOR GFR 1.57 MG/DL (0.55-1.30); POTASSIUM SERUM 3.8 MEQ/L (3.5-5.1)
[2018-04-15 07:45] LABS: ALBUMIN 3.1 GM/DL (3.2-5.2)
[2018-04-15] MEDS: QUEtiapine FUMARATE 25 MG TAB PO SCH (08:52)
[2018-04-15] MEDS: FOLIC ACID 1 MG TAB PO SCH (08:52)
[2018-04-15] MEDS: rifAXIMin 550 MG TAB (XIFAXAN) PO SCH (08:52)
[2018-04-15] MEDS: CYANOCOBALAMIN 500 MCG TAB PO SCH (08:52)
[2018-04-15] MEDS: FERROUS SULFATE 325MG TAB PO SCH ×2 (08:52→20:00)
[2018-04-15] MEDS: OMEPRAZOLE 20 MG CAP PO SCH (08:52)
[2018-04-15] MEDS: LACTOBACILLUS ACIDOPHILUS CAP (BACID) PO SCH ×3 (08:52→18:46)
[2018-04-15] MEDS: cefTRIAXone SOD 2 GM in D5W MINI-BAG PLUS 50 ML IV SCH (08:53)
[2018-04-15] MEDS: NADOLOL 20MG TABLET PO SCH (09:01)
[2018-04-15] MEDS ORDERED: PILL CRUSHER/CUTTER 1 EACH XX PRN (09:15)
--- NOTE | 2018-04-15 10:21 | IPNPDOC ---
Date Seen The patient was seen on 04/15/18. Progress Note SUBJECTIVE: Patient is a 67-year-old female with diarrhea. Patient is evaluated at bedside this morning. She sitting up on the edge of the bed eating breakfast. She states that she is now having diarrhea. She denies shortness of breath, chest pain, nausea, vomiting, abdominal pain, fevers, night sweats, chills. OBJECTIVE PHYSICAL EXAMINATION: VITAL SIGNS: Please see below. GENERAL: Darkly skinned, frail female, alert and conversant although somewhat tangential at times, appropriately dressed in hospital attire, answers questions appropriately, no acute distress. HEENT: Atraumatic, normocephalic, PERRL, EOMI, oral mucosa appears somewhat dry, nasal septum is midline, nares are patent. CARDIOVASCULAR: Regular rate and rhythm, normal S1 and S2, no murmur, rub, cli ck. RESPIRATORY: Clear to auscultation bilaterally, adequate inspiratory and expiratory airway excursion, symmetric airway entry, no focal consolidations, no wheeze, rhonchi, crackles. ABDOMINAL: Abdomen appears somewhat distended, but is soft, non-tender, nonpainful to palpation, difficult to appreciate organomegaly. EXTREMITIES: [place] and leather appearance to bilateral lower extremities, painf ul to palpation of the right lower extremity. NEUROLOGICAL: No focal neurological deficits. PSYCHOLOGICAL: Mood and affect appropriate. LABORATORY DATA, IMAGING STUDIES, MICROBIOLOGY: Please see below. Ultrasound-guided paracentesis on 04/13/2018 - 9800 mL of yellow fluid withdrawn. DVT prophylaxis ordered?: TEDs, sequentials; activity as tolerated. ASSESSMENT AND PLAN: This is a 67-year-old female with diarrhea. PROBLEMS: 1. Diarrhea: Patient was restarted on lactulose with orders to maintain 2-3 bowel movements daily. Three documented bowel movements since yesterday. Continue rifaximin. Continue to hold loperamide. 2. Renal insufficiency: Baseline creatinine approximately 1.2. Creatinine continues to improve. Monitor daily BMPs. Have ordered urine electrolytes. Corrected calcium is 9.3. 3. Cirrhosis with abdominal ascites and varices with possible spontaneous bacterial peritonitis: Continue Nadolol and Rifaximin. Continue with ceftriaxone 2 g IV every 24 hours. Will transition to oral antibiotics at time of discharge. Will restart spironolactone and Lasix. Monitor blood pressures. No organisms grown aerobically on paracentesis fluid culture. 4. Normocytic anemia with thrombocytopenia: Peripheral smear obtained which revealed "normocytic anemia and thrombocytopenia in a patient with history of cirrhosis, recent onset, GI bleed should be ruled out. No morphologic abnormalities are noted." Stool for occult blood was negative. Absolute reticulocyte count is 1.4 with a reticulocyte index 0.93 which can indicate possible hypoproliferation. Continue Ferrous sulfate. Iron studies reveal an acute phase reaction. 5. Direct hyperbilirubinemia: AST and ALT within normal limits. Likely secondary to cirrhosis. Renal function is improving. 6. Hemorrhoids: Continue Proctosol. 7. Vitamin B12 deficiency: Continue daily supplementation. Could be secondary to cirrhosis. 8. Gastroesophageal reflux disease: Continue Prilosec. DISPOSITION: Pending clinical improvement. Potential discharge in the next 72 hours. VS, I&O, 24H, Fishbone Vital Signs/I&O Vital Signs Date Time Temp Pulse Resp B/P (MAP) Pulse Ox O2 Delivery O2 Flow Rate FiO2 04/15/18 09:01 60 100/57 04/15/18 06:00 97.6 18 93 04/14/18 14:00 Room Air I&O- Last 24 Hours up to 6 AM 04/15/18 06:00 Intake Total 520 ml Output Total 1 ml Balance 519 ml Laboratory Data 24H LABS Laboratory Tests 2 04/14/18 11:53: Iron Level 31L, Total Iron Binding Capacity 96L, Transferrin % Saturation 32.3, Ferritin 465H, Vitamin B12 Level 1261H, Folate 4.2L 04/15/18 05:22: Anion Gap 9, Glomerular Filtration Rate 35.0L, Blood Urea Nitrogen 35H, Creatinine 1.57H, Sodium Level 136, Potassium Level 3.8, Chloride Level 93L, Carbon Dioxide Level 34H, Calcium Level 8.6L, Albumin 3.1L 04/15/18 05:23: Nucleated Red Blood Cells % (auto) 0.0 CBC/BMP Laboratory Tests 04/15/18 05:22 Calcium Level 8.6 L 04/15/18 05:23 Red Blood Count 3.68 L, Mean Corpuscular Volume 88.0, Mean Corpuscular Hemoglobin 28.5, Mean Corpuscular Hemoglobin Concent 32.4, Red Cell Distribution Width 14.6 H Microbiology Microbiology 04/13/18 Fungal Smear, Received Pending 04/13/18 Fungal Culture, Received Pending 04/13/18 Gram Stain - Final, Complete 04/13/18 Body Fluid Culture - Final, Complete 04/13/18 Anaerobic Culture, Received Pending 04/13/18 Acid Fast Stain, Received Pending 04/13/18 Mycobacterial Culture, Received Pending 04/14/18 Stool Occult Blood (BRANDON) - Final, Complete ANEL HUSSEIN DO Apr 15, 2018 10:21
[2018-04-15] MEDS: TORSEMIDE (DEMADEX) 50 MG PER 1/2 TAB PO SCH (16:50)
[2018-04-15 16:51] VITALS: BP 90/50
[2018-04-15] MEDS: SPIRONOLACTONE 50 MG TAB PO SCH (16:51)
[2018-04-15 22:00] VITALS: BP 101/53
[2018-04-16 03:22] LABS: CHLORIDE,RANDOM URINE < 10 MEQ/L; POTASSIUM RANDOM URINE 29.7 MEQ/L
[2018-04-16] MEDS: LACTULOSE 20 GM/30 ML SYRUP UD PO SCH ×3 (05:27→21:06)
[2018-04-16 05:42] LABS: CALCIUM,RANDOM URINE < 5.0 MG/DL
[2018-04-16 06:00] VITALS: BP 115/64
[2018-04-16 06:10] LABS: HEMATOCRIT 31.9 % (36.0-47.0); HEMOGLOBIN 10.5 g/dl (12.0-15.5); MEAN CORPUSCULAR HEMOGLOBIN 27.9 pg (27.0-33.0); MEAN CORPUSCULAR HGB CONC 32.9 g/dl (32.0-36.5); MEAN CORPUSCULAR VOLUME 84.8 fl (80.0-96.0); PLATELET COUNT, AUTOMATED 143 10^3/uL (150-450); RED BLOOD COUNT 3.76 10^6/uL (4.00-5.40); WHITE BLOOD COUNT 9.1 10^3/uL (4.0-10.0)
[2018-04-16 06:21] LABS: CALCIUM LEVEL 8.2 MG/DL (8.8-10.2); CREATININE FOR GFR 1.32 MG/DL (0.55-1.30); GLOMERULAR FILTRATION RATE 42.7 (>45); POTASSIUM SERUM 3.9 MEQ/L (3.5-5.1)
[2018-04-16 07:58] LABS: ALBUMIN 2.7 GM/DL (3.2-5.2); BILIRUBIN,DIRECT 0.3 MG/DL (0.0-0.2); BILIRUBIN,TOTAL 1.1 MG/DL (0.2-1.0)
[2018-04-16] MEDS ORDERED: CALCIUM GLUCONATE 1,000 MG in D5W MINI-BAG PLUS 100 ML IV ONE (08:00)
[2018-04-16] MEDS: CYANOCOBALAMIN 500 MCG TAB PO SCH (08:17)
[2018-04-16] MEDS: CIPROFLOXACIN 500 MG TAB PO SCH ×2 (08:17→17:20)
[2018-04-16] MEDS: OMEPRAZOLE 20 MG CAP PO SCH (08:17)
[2018-04-16] MEDS: QUEtiapine FUMARATE 25 MG TAB PO SCH (08:18)
[2018-04-16] MEDS: FERROUS SULFATE 325MG TAB PO SCH ×2 (08:18→21:06)
[2018-04-16] MEDS: FOLIC ACID 1 MG TAB PO SCH (08:18)
[2018-04-16] MEDS: rifAXIMin 550 MG TAB (XIFAXAN) PO SCH (08:18)
[2018-04-16] MEDS: LACTOBACILLUS ACIDOPHILUS CAP (BACID) PO SCH ×3 (08:18→17:20)
[2018-04-16] MEDS: TORSEMIDE (DEMADEX) 50 MG PER 1/2 TAB PO SCH (08:22)
[2018-04-16] MEDS: SPIRONOLACTONE 50 MG TAB PO SCH (08:22)
[2018-04-16] MEDS: NADOLOL 20MG TABLET PO SCH (08:22)
--- NOTE | 2018-04-16 09:46 | IPNPDOC ---
Date Seen The patient was seen on 04/16/18. Progress Note SUBJECTIVE: Patient is a 67-year-old female with diarrhea. Patient is evaluated at bedside this morning. She is laying in bed on her left side. Nursing is present during evaluation. She denies weakness, shortness of breath. She states that she cannot go home because she is "full of fluid" and she continues to experience diarrhea. OBJECTIVE PHYSICAL EXAMINATION: VITAL SIGNS: Please see below. GENERAL: Darkly skinned, frail female, alert and conversant, appropriately dressed in hospital attire, answers questions appropriately, no acute distress. HEENT: Atraumatic, normocephalic, PERRL, EOMI, oral mucosa appears somewhat dry, nasal septum is midline, nares are patent. CARDIOVASCULAR: Regular rate and rhythm, normal S1 and S2, no murmur, rub, click. RESPIRATORY: Clear to auscultation bilaterally, adequate inspiratory and expiratory airway excursion, symmetric airway entry, no focal consolidations, no wheeze, rhonchi, crackles. ABDOMINAL: Abdomen appears somewhat distended, but is soft, non-tender, nonpainful to palpation, difficult to appreciate organomegaly. EXTREMITIES: [place] and leather appearance to bilateral lower extremities, no peripheral edema. NEUROLOGICAL: No focal neurological deficits. PSYCHOLOGICAL: Mood and affect appropriate. LABORATORY DATA, IMAGING STUDIES, MICROBIOLOGY: Please see below. Ultrasound-guided paracentesis on 04/13/2018 - 9800 mL of yellow fluid withdrawn. DVT prophylaxis ordered?: TEDs, sequentials; activity as tolerated. ASSESSMENT AND PLAN: This is a 67-year-old female with diarrhea. PROBLEMS: 1. Diarrhea: Continue with Lactulose. Patient is to have 2-3 bowel movements daily. Four reported bowel movements documented over the last 24 hours. Inappropriate to obtain gastrointestinal panel as patient is on medication to stimulate bowel movements. Continue to hold loperamide. Patient and family services have been consulted for possible rehabilitation locations as family are challenged by diarrhea. 2. Hypotension: Discontinued Torsemide and Spironolactone. Patient's Nadolol was held this morning due to hypotension. Monitor vital signs. 3. Acute on chronic kidney disease: Baseline creatinine 1.2. Improvement in creatinine since admission. Monitor daily BMP. 4. Spontaneous bacterial peritonitis: Paracentesis on 04/13/2018 removed 9.8L of fluid. Fluid analysis revealed 381 WBC. Started patient on IV Ceftriaxone and has received 2 doses. Transitioned patient to oral Ciprofloxacin and will receive 5 doses to total 7 total treatment days. Patient has remained afebrile without leukocytosis. Did have leukocytosis on presentation. Gram stain of fluid revealed "few WBC and no organisms seen with no growth aerobically." 5. Cirrhosis with abdominal ascites and esophageal varices: Continue Nadolol and Rifaximin. Nadolol held this morning due to hypotension. Monitor vital signs. Discontinued Torsemide and Spironolactone. 6. Normocytic anemia with thrombocytopenia: Peripheral smear obtained which revealed "normocytic anemia and thrombocytopenia in a patient with history of cirrhosis, recent onset, GI bleed should be ruled out. No morphologic abnormalities are noted." Stool for occult blood was negative. Absolute reticulocyte count is 1.4 with a reticulocyte index 0.93 which can indicate possible hypoproliferation. Continue Ferrous sulfate. Iron studies reveal an acute phase reaction. 5. Direct hyperbilirubinemia: AST and ALT within normal limits. Likely secondary to cirrhosis. 6. Hemorrhoids: Continue Proctosol. 7. Vitamin B12 deficiency: Continue daily supplementation. Could be secondary to cirrhosis. 8. Gastroesophageal reflux disease: Continue Prilosec. 9. Electrolyte derangements: Corrected calcium is 8.9. Supplementation provided. DISPOSITION: Pending clinical improvement. PFS for possible rehabilitation locations. VS, I&O, 24H, [facility] Vital Signs/I&O Vital Signs Date Time Temp Pulse Resp B/P (MAP) Pulse Ox O2 Delivery O2 Flow Rate FiO2 04/16/18 08:22 65 85/47 04/16/18 06:00 97.4 17 96 Room Air I&O- Last 24 Hours up to 6 AM 04/16/18 06:00 Intake Total 700 ml Output Total 475 ml Balance 225 ml Laboratory Data 24H LABS Laboratory Tests 2 04/16/18 02:49: Urine Random Potassium 29.7, Urine Random Chloride < 10, Urine Random Calcium < 5.0 04/16/18 05:23: Nucleated Red Blood Cells % (auto) 0.0, Anion Gap 6L, Glomerular Filtration Rate 42.7L, Calcium Level 8.2L, Aspartate Amino Transf (AST/SGOT) 29, Alanine Aminotransferase (ALT/SGPT) 20, Alkaline Phosphatase 214H, Total Bilirubin 1.1H, Direct Bilirubin 0.3H, Total Protein 5.0L, Albumin 2.7L, Albumin/Globulin Ratio 1.17 CBC/BMP Laboratory Tests 04/16/18 05:23 Red Blood Count 3.76 L, Mean Corpuscular Volume 84.8, Mean Corpuscular Hemoglobin 27.9, Mean Corpuscular Hemoglobin Concent 32.9, Red Cell Distribution Width 14.6 H Microbiology Microbiology 04/13/18 Fungal Smear, Received Pending 04/13/18 Fungal Culture, Received Pending 04/13/18 Gram Stain - Final, Complete 04/13/18 Body Fluid Culture - Final, Complete 04/13/18 Anaerobic Culture, Received Pending 04/13/18 Acid Fast Stain, Received Pending 04/13/18 Mycobacterial Culture, Received Pending 04/14/18 Stool Occult Blood (BRANDON) - Final, Complete ANEL HUSSEIN DO Apr 16, 2018 09:46
[2018-04-16 14:00] VITALS: BP 109/66
[2018-04-16 22:00] VITALS: BP 112/63
[2018-04-17] MEDS: CIPROFLOXACIN 500 MG TAB PO SCH ×2 (05:17→17:20)
[2018-04-17] MEDS: LACTULOSE 20 GM/30 ML SYRUP UD PO SCH ×3 (05:17→20:45)
[2018-04-17 06:00] VITALS: BP 110/65
[2018-04-17 06:09] LABS: HEMATOCRIT 34.1 % (36.0-47.0); HEMOGLOBIN 11.1 g/dl (12.0-15.5); MEAN CORPUSCULAR HEMOGLOBIN 28.1 pg (27.0-33.0); MEAN CORPUSCULAR HGB CONC 32.6 g/dl (32.0-36.5); MEAN CORPUSCULAR VOLUME 86.3 fl (80.0-96.0); PLATELET COUNT, AUTOMATED 137 10^3/uL (150-450); RED BLOOD COUNT 3.95 10^6/uL (4.00-5.40)
[2018-04-17 06:28] LABS: CALCIUM LEVEL 8.4 MG/DL (8.8-10.2); CREATININE FOR GFR 1.39 MG/DL (0.55-1.30); GLOMERULAR FILTRATION RATE 40.3 (>45)
[2018-04-17] MEDS: OMEPRAZOLE 20 MG CAP PO SCH (09:28)
[2018-04-17] MEDS: CYANOCOBALAMIN 500 MCG TAB PO SCH (09:28)
[2018-04-17] MEDS: LACTOBACILLUS ACIDOPHILUS CAP (BACID) PO SCH ×3 (09:28→17:20)
[2018-04-17] MEDS: FOLIC ACID 1 MG TAB PO SCH (09:28)
[2018-04-17] MEDS: rifAXIMin 550 MG TAB (XIFAXAN) PO SCH (09:28)
[2018-04-17] MEDS: FERROUS SULFATE 325MG TAB PO SCH ×2 (09:28→20:45)
[2018-04-17] MEDS: QUEtiapine FUMARATE 25 MG TAB PO SCH (09:29)
[2018-04-17] MEDS: NADOLOL 20MG TABLET PO SCH (09:31)
[2018-04-17] MEDS ORDERED: SODIUM CHLORIDE 0.9% 1000ML IV ONE (13:00)
--- NOTE | 2018-04-17 13:01 | IPNPDOC ---
Date Seen The patient was seen on 04/17/18. Progress Note SUBJECTIVE: Patient is a 67-year-old female with diarrhea. Patient is evaluated at bedside this morning. She is laying in bed on her right side. She offers up no complaints. Says that she is doing "okay." Denies abdominal pain, shortness of breath. OBJECTIVE PHYSICAL EXAMINATION: VITAL SIGNS: Please see below. GENERAL: Darkly skinned, frail female, alert and conversant, appropriately dressed in hospital attire, answers questions appropriately, no acute distress. HEENT: Atraumatic, normocephalic, PERRL, EOMI, oral mucosa appears somewhat dry, nasal septum is midline, nares are patent. CARDIOVASCULAR: Regular rate and rhythm, normal S1 and S2, no murmur, rub, cli ck. RESPIRATORY: Clear to auscultation bilaterally, adequate inspiratory and expiratory airway excursion, symmetric airway entry, no focal consolidations, no wheeze, rhonchi, crackles. ABDOMINAL: Abdomen appears somewhat distended, but is soft, non-tender, nonpainful to palpation, difficult to appreciate organomegaly. EXTREMITIES: [place] and leather appearance to bilateral lower extremities, no pe ripheral edema. NEUROLOGICAL: No focal neurological deficits. PSYCHOLOGICAL: Mood and affect appropriate. LABORATORY DATA, IMAGING STUDIES, MICROBIOLOGY: Please see below. Ultrasound-guided paracentesis on 04/13/2018 - 9800 mL of yellow fluid withdrawn. DVT prophylaxis ordered?: TEDs, sequentials; activity as tolerated. ASSESSMENT AND PLAN: This is a 67-year-old female with diarrhea. PROBLEMS: 1. Diarrhea: Patient presented with diarrhea; however, had no further episodes of diarrhea since presentation. Lactulose on hold at that time. Restarted and continue with Lactulose to maintain 2-3 bowel movements daily. Two reported bowel movements over the last 24 hours. Inappropriate to obtain gastrointestinal panel as patient is on medication to stimulate bowel movements. Continue to hold loperamide. Patient and family services for assistance with disposition to [facility] vs. home health referral. 2. Hyponatremia: Providing normal saline 500 mL bolus. 3. Leukocytosis: Mildly elevated. Afebrile. No tachycardia or hypotension. Positive peritoneal fluid culture for Enterococcus faecalis. Monitor for the time-being. 4. Hypotension: Resolved. 5. Acute on chronic kidney disease: Baseline creatinine 1.2. Improvement in creatinine since admission. Monitor daily BMP. Urine electrolytes within normal limits. 6. Spontaneous bacterial peritonitis: Paracentesis on 04/13/2018 removed 9.8L of fluid. Fluid analysis revealed 381 WBC. Adjusted patient to oral Ciproflox acin with completion date of 04/21/2018. Gram stain of fluid revealed "few WBC and no organisms seen with no growth aerobically." Peritoneal fluid culture positive for Enterococcus faecalis which is sensitive to Ciprofloxacin with an BRANDON </= 0.5. 7. Cirrhosis with abdominal ascites and esophageal varices: Continue Nadolol and Rifaximin. 8. Normocytic anemia with thrombocytopenia: Peripheral smear obtained which revealed "normocytic anemia and thrombocytopenia in a patient with history of ci rrhosis, recent onset, GI bleed should be ruled out. No morphologic abnormalities are noted." Stool for occult blood was negative. Absolute reticulocyte count is 1.4 with a reticulocyte index 0.93 which can indicate possible hypoproliferation. Continue Ferrous sulfate. Iron studies reveal an acute phase reaction. Above normal vitamin B12 level. Folate level is low. Patient is receiving Folic Acid supplementation. 9. Direct hyperbilirubinemia: AST and ALT within normal limits. Likely secondary to cirrhosis. 10. Hemorrhoids: Continue Proctosol. 11. Vitamin B12 deficiency: Continue daily supplementation. Could be secondary to cirrhosis. 12. Gastroesophageal reflux disease: Continue Prilosec. 13. Electrolyte derangements: Resolved. 14. Deconditioning and weakness: Physical therapy ordered with recommendations that patient would benefit from skilled therapy. DISPOSITION: Pending clinical improvement. Continued physical therapy with evaluation for rehabilitation. VS, I&O, 24H, Fishbone Vital Signs/I&O Vital Signs Date Time Temp Pulse Resp B/P (MAP) Pulse Ox O2 Delivery O2 Flow Rate FiO2 04/17/18 09:31 79 126/70 04/17/18 06:00 98.0 19 96 Room Air I&O- Last 24 Hours up to 6 AM 04/17/18 06:00 Intake Total 2060 ml Output Total 1050 ml Balance 1010 ml Laboratory Data 24H LABS Laboratory Tests 2 04/17/18 05:25: Nucleated Red Blood Cells % (auto) 0.0, Anion Gap 9, Glomerular Filtration Rate 40.3L, Blood Urea Nitrogen 26H, Creatinine 1.39H, Sodium Level 131L, Potassium Level 4.0, Chloride Level 91L, Carbon Dioxide Level 31, Calcium Level 8.4L CBC/BMP Laboratory Tests 04/17/18 05:25 Red Blood Count 3.95 L, Mean Corpuscular Volume 86.3, Mean Corpuscular Hemoglobin 28.1, Mean Corpuscular Hemoglobin Concent 32.6, Red Cell Distribution Width 14.2, Calcium Level 8.4 L Microbiology Microbiology 04/13/18 Fungal Smear, Received Pending 04/13/18 Fungal Culture, Received Pending 04/13/18 Gram Stain - Final, Complete 04/13/18 Body Fluid Culture - Final, Complete 04/13/18 Anaerobic Culture - Final, Complete Enterococcus Faecalis 04/13/18 Acid Fast Stain, Received Pending 04/13/18 Mycobacterial Culture, Received Pending 04/14/18 Stool Occult Blood (BRANDON) - Final, Complete ANEL HUSSEIN DO Apr 17, 2018 13:01
[2018-04-17 14:00] VITALS: BP 112/58
[2018-04-17 20:00] VITALS: BP 91/55
[2018-04-18] MEDS: LACTULOSE 20 GM/30 ML SYRUP UD PO SCH ×3 (05:26→19:22)
[2018-04-18] MEDS: CIPROFLOXACIN 500 MG TAB PO SCH ×2 (05:26→18:42)
[2018-04-18 05:47] VITALS: BP 91/51
[2018-04-18 06:22] LABS: HEMATOCRIT 33.8 % (36.0-47.0); HEMOGLOBIN 11.2 g/dl (12.0-15.5); MEAN CORPUSCULAR HEMOGLOBIN 28.6 pg (27.0-33.0); MEAN CORPUSCULAR HGB CONC 33.1 g/dl (32.0-36.5); MEAN CORPUSCULAR VOLUME 86.4 fl (80.0-96.0); PLATELET COUNT, AUTOMATED 154 10^3/uL (150-450); RED BLOOD COUNT 3.91 10^6/uL (4.00-5.40); WHITE BLOOD COUNT 11.7 10^3/uL (4.0-10.0)
[2018-04-18 06:37] LABS: CALCIUM LEVEL 8.1 MG/DL (8.8-10.2); CREATININE FOR GFR 1.3 MG/DL (0.55-1.30); GLOMERULAR FILTRATION RATE 43.5 (>45); POTASSIUM SERUM 3.8 MEQ/L (3.5-5.1)
[2018-04-18] MEDS ORDERED: TORS100T PO (07:08)
[2018-04-18] MEDS ORDERED: SPIR50TA4 PO (07:08)
[2018-04-18] MEDS ORDERED: FOLI1TAB11 PO (07:08)
[2018-04-18] MEDS ORDERED: LACT10SO3 PO (07:08)
[2018-04-18 08:29] LABS: INR 1.28; PROTHROMBIN TIME 16.2 SECONDS (12.1-14.4)
[2018-04-18 08:30] LABS: PARTIAL THROMBOPLASTIN TIME 30.8 SECONDS (25.4-37.6)
[2018-04-18] MEDS: LACTOBACILLUS ACIDOPHILUS CAP (BACID) PO SCH ×3 (09:40→18:42)
[2018-04-18] MEDS: rifAXIMin 550 MG TAB (XIFAXAN) PO SCH (09:40)
[2018-04-18] MEDS: FERROUS SULFATE 325MG TAB PO SCH ×2 (09:42→19:59)
[2018-04-18] MEDS: OMEPRAZOLE 20 MG CAP PO SCH (09:42)
[2018-04-18] MEDS: FOLIC ACID 1 MG TAB PO SCH (09:42)
[2018-04-18] MEDS: CYANOCOBALAMIN 500 MCG TAB PO SCH (09:42)
[2018-04-18] MEDS: QUEtiapine FUMARATE 25 MG TAB PO SCH (09:42)
[2018-04-18] MEDS: NADOLOL 20MG TABLET PO SCH (09:48)
[2018-04-18] MEDS ORDERED: RAMELTEON 8 MG TAB (ROZEREM) PO PRN (10:00)
--- NOTE | 2018-04-18 13:56 | IPNPDOC ---
Date Seen The patient was seen on 04/18/18. Progress Note SUBJECTIVE: Patient is a 67-year-old female with diarrhea. Patient is evaluated at bedside this morning. She is laying in bed in the supine position. Her nurses at bedside. Patient requests something for sleep as she is a very light sleeper and did not sleep well last evening. She notices that her bowel movements have improved. She has no chest pain, shortness of breath or fevers, night sweats, chills. OBJECTIVE PHYSICAL EXAMINATION: VITAL SIGNS: Please see below. GENERAL: Darkly skinned, frail female, alert and conversant, appropriately dressed in hospital attire, answers questions appropriately, no acute distress. HEENT: Atraumatic, normocephalic, PERRL, EOMI, oral mucosa pink and moist, nasal septum is midline, nares are patent. CARDIOVASCULAR: Regular rate and rhythm, normal S1 and S2, no murmur, rub, click. RESPIRATORY: Clear to auscultation bilaterally, adequate inspiratory and expiratory airway excursion, symmetric airway entry, no focal consolidations, no wheeze, rhonchi, crackles. ABDOMINAL: Abdomen appears somewhat distended, but is soft, non-tender, nonpainful to palpation, difficult to appreciate organomegaly. EXTREMITIES: [place] and leather appearance to bilateral lower extremities, no peripheral edema. NEUROLOGICAL: No focal neurological deficits. PSYCHOLOGICAL: Mood and affect appropriate. LABORATORY DATA, IMAGING STUDIES, MICROBIOLOGY: Please see below. Ultrasound-guided paracentesis on 04/13/2018 - 9800 mL of yellow fluid withdr awn. DVT prophylaxis ordered?: TEDs, sequentials; activity as tolerated. ASSESSMENT AND PLAN: This is a 67-year-old female with diarrhea. PROBLEMS: 1. Diarrhea: Patient presented with diarrhea; however, had no further episodes of diarrhea since presentation. Lactulose on hold at that time. Restarted and continue with Lactulose to maintain 2-3 bowel movements daily. One bowel moveme nt reported over the last 24 hours. One bowel movement reported since midnight last night. Inappropriate to obtain gastrointestinal panel as patient is on medication to stimulate bowel movements. Continue to hold loperamide. Patient has been accepted to [facility] on 04/20/2018 at 11:15 AM. 2. Insomnia: Has started ramelteon 8 mg by mouth nightly as needed for sleep. 3. Hyponatremia: Monitor for the time being. 4. Leukocytosis: Mildly elevated. Afebrile. No tachycardia or hypotension. Positive peritoneal fluid culture for Enterococcus faecalis. Monitor for the time-being. 5. Acute on chronic kidney disease: Baseline creatinine 1.2. Improvement in creatinine since admission. Monitor daily BMP. Urine electrolytes within normal limits. 6. Spontaneous bacterial peritonitis: Paracentesis on 04/13/2018 removed 9.8L of fluid. Fluid analysis revealed 381 WBC. Adjusted patient to oral Ciprofloxacin with completion date on 04/21/2018. Gram stain of fluid revealed "few WBC and no organisms seen with no growth aerobically." Peritoneal fluid culture positive for Enterococcus faecalis which is sensitive to Ciprofloxacin with an BRANDON </= 0.5. Repeat therapeutic paracentesis ordered for 04/20/2018 7. Cirrhosis with abdominal ascites and esophageal varices: Continue Nadolol and Rifaximin. INR 1.28. DVT prophylaxis with TEDs and sequentials. Ambulation as tolerated. 8. Normocytic anemia with thrombocytopenia: Peripheral smear obtained which revealed "normocytic anemia and thrombocytopenia in a patient with history of cirrhosis, recent onset, GI bleed should be ruled out. No morphologic abnormalities are noted." Stool for occult blood was negative. Absolute reticulocyte count is 1.4 with a reticulocyte index 0.93 which can indicate possible hypoproliferation. Continue Ferrous sulfate. Iron studies reveal an acute phase reaction. Above normal vitamin B12 level. Folate level is low. Patient is receiving Folic Acid supplementation. 9. Direct hyperbilirubinemia: AST and ALT within normal limits. Likely secondary to cirrhosis. 10. Hemorrhoids: Continue Proctosol. 11. Vitamin B12 deficiency: Continue daily supplementation. Could be secondary to cirrhosis. 12. Gastroesophageal reflux disease: Continue Prilosec. 13. Deconditioning and weakness: Physical therapy ordered with recommendations that patient would benefit from skilled therapy. Patient has been accepted for short-term rehabilitation at [facility] on 04/20/2018 at 11:15 AM. DISPOSITION: Therapeutic paracentesis on 04/20/2018. Short-term rehabilitation at [facility] on 04/20/2018 at 11:15 AM. VS, I&O, 24H, Fishbone Vital Signs/I&O Vital Signs Date Time Temp Pulse Resp B/P (MAP) Pulse Ox O2 Delivery O2 Flow Rate FiO2 04/18/18 09:48 70 113/70 04/18/18 05:47 97.6 16 99 Room Air I&O- Last 24 Hours up to 6 AM 04/18/18 06:00 Intake Total 600 ml Output Total 425 ml Balance 175 ml Laboratory Data 24H LABS Laboratory Tests 2 04/18/18 06:00: Nucleated Red Blood Cells % (auto) 0.0, Anion Gap 9, Glomerular Filtration Rate 43.5L, Blood Urea Nitrogen 23H, Creatinine 1.30, Sodium Level 131L, Potassium Level 3.8, Chloride Level 91L, Carbon Dioxide Level 31, Calcium Level 8.1L 04/18/18 07:56: Prothrombin Time 16.2H, Prothromb Time International Ratio 1.28, Activated Partial Thromboplast Time 30.8 CBC/BMP Laboratory Tests 04/18/18 06:00 Red Blood Count 3.91 L, Mean Corpuscular Volume 86.4, Mean Corpuscular Hemoglobin 28.6, Mean Corpuscular Hemoglobin Concent 33.1, Red Cell Distribution Width 14.6 H, Calcium Level 8.1 L Microbiology Microbiology 04/13/18 Fungal Smear, Received Pending 04/13/18 Fungal Culture, Received Pending 04/13/18 Gram Stain - Final, Complete 04/13/18 Body Fluid Culture - Final, Complete 04/13/18 Anaerobic Culture - Final, Complete Enterococcus Faecalis 04/13/18 Acid Fast Stain, Received Pending 04/13/18 Mycobacterial Culture, Received Pending 04/14/18 Stool Occult Blood (BRANDON) - Final, Complete ANEL HUSSEIN DO Apr 18, 2018 13:55
[2018-04-18 14:00] VITALS: BP 89/54
[2018-04-18 22:00] VITALS: BP 119/63
[2018-04-19] MEDS: LACTULOSE 20 GM/30 ML SYRUP UD PO SCH ×3 (05:31→20:18)
[2018-04-19] MEDS: CIPROFLOXACIN 500 MG TAB PO SCH ×2 (05:31→17:31)
[2018-04-19 06:00] VITALS: BP 107/62
[2018-04-19 06:20] LABS: HEMATOCRIT 32.8 % (36.0-47.0); MEAN CORPUSCULAR HGB CONC 33.5 g/dl (32.0-36.5); MEAN CORPUSCULAR VOLUME 83.5 fl (80.0-96.0); PLATELET COUNT, AUTOMATED 152 10^3/uL (150-450); RED BLOOD COUNT 3.93 10^6/uL (4.00-5.40); WHITE BLOOD COUNT 11.3 10^3/uL (4.0-10.0)
[2018-04-19 06:40] LABS: CALCIUM LEVEL 7.9 MG/DL (8.8-10.2); CREATININE FOR GFR 1.31 MG/DL (0.55-1.30); GLOMERULAR FILTRATION RATE 43.1 (>45)
[2018-04-19] MEDS: NADOLOL 20MG TABLET PO SCH (09:00)
[2018-04-19] MEDS: rifAXIMin 550 MG TAB (XIFAXAN) PO SCH (09:06)
[2018-04-19] MEDS: LACTOBACILLUS ACIDOPHILUS CAP (BACID) PO SCH ×3 (09:06→17:31)
[2018-04-19] MEDS: CYANOCOBALAMIN 500 MCG TAB PO SCH (09:06)
[2018-04-19] MEDS: OMEPRAZOLE 20 MG CAP PO SCH (09:06)
[2018-04-19] MEDS: FOLIC ACID 1 MG TAB PO SCH (09:07)
[2018-04-19] MEDS: FERROUS SULFATE 325MG TAB PO SCH ×2 (09:07→20:18)
[2018-04-19] MEDS: QUEtiapine FUMARATE 25 MG TAB PO SCH (09:07)
--- NOTE | 2018-04-19 10:56 | IPNPDOC ---
Text Note Date of Service The patient was seen on 04/19/18. NOTE SUBJECTIVE: Patient seen and examined at bedside. No acute overnight events r eported. Patient has no new medical complaints today. OBJECTIVE: VITAL SIGNS: Please see below. GENERAL: Darkly skinned, frail female, alert and conversant, appropriately dressed in hospital attire, answers questions appropriately, no acute distress. HEENT: NC/AT CARDIOVASCULAR: +S1S2, RRR RESPIRATORY: Clear to auscultation bilaterally, adequate inspiratory and expiratory airway excursion, symmetric airway entry, no focal consolidations, no wheeze, rhonchi, crackles. ABDOMINAL: distended, soft, NT, +BS EXTREMITIES: [place] and leather appearance to bilateral lower extremities, no pe ripheral edema. NEUROLOGICAL: No gross focal neurological deficits. ASSESSMENT AND PLAN: This is a 67-year-old female with diarrhea. PROBLEMS: 1. Diarrhea: Patient presented with diarrhea; however, had no further episodes of diarrhea since presentation. Lactulose on hold at that time. Restarted and continue with Lactulose to maintain 2-3 bowel movements daily. One bowel movement reported over the last 24 hours. One bowel movement reported since midnight last night. Inappropriate to obtain gastrointestinal panel as patient is on medication to stimulate bowel movements. Continue to hold loperamide. [facility] on 04/20/2018 at 11:15 AM. 2. Insomnia: Has started ramelteon 8 mg by mouth nightly as needed for sleep. 3. Hyponatremia: Monitor for the time being. 4. Leukocytosis: Mildly elevated. Afebrile. No tachycardia or hypotension. Positive peritoneal fluid culture for Enterococcus faecalis. Monitor for the time-being. 5. Acute on chronic kidney disease: Baseline creatinine 1.2. Improvement in creatinine since admission. Monitor daily BMP. Urine electrolytes within normal limits. 6. Spontaneous bacterial peritonitis: Paracentesis on 04/13/2018 removed 9.8L of fluid. Fluid analysis revealed 381 WBC. Adjusted patient to oral Ciprofloxacin with completion date on 04/21/2018. Gram stain of fluid revealed "few WBC and no organisms seen with no growth aerobically." Peritoneal fluid culture positive for Enterococcus faecalis which is sensitive to Ciprofloxacin with an BRANDON </= 0.5. Repeat therapeutic paracentesis ordered for 04/20/2018. US today to assess asciites. 7. Cirrhosis with abdominal ascites and esophageal varices: Continue Nadolol and Rifaximin. INR 1.28. DVT prophylaxis with TEDs and sequentials. Ambulation as tolerated. 8. Normocytic anemia with thrombocytopenia: Peripheral smear obtained which revealed "normocytic anemia and thrombocytopenia in a patient with history of cirrhosis, recent onset, GI bleed should be ruled out. No morphologic abnormalities are noted." Stool for occult blood was negative. Absolute reticulocyte count is 1.4 with a reticulocyte index 0.93 which can indicate possible hypoproliferation. Continue Ferrous sulfate. Iron studies reveal an acute phase reaction. Above normal vitamin B12 level. Folate level is low. Patient is receiving Folic Acid supplementation. 9. Direct hyperbilirubinemia: AST and ALT within normal limits. Likely secondary to cirrhosis. 10. Hemorrhoids: Continue Proctosol. 11. Vitamin B12 deficiency: Continue daily supplementation. Could be secondary to cirrhosis. 12. Gastroesophageal reflux disease: Continue Prilosec. 13. Deconditioning and weakness: Physical therapy ordered with recommendations that patient would benefit from skilled therapy. Patient has been accepted for short-term rehabilitation at [facility] on 04/20/2018 at 11:15 AM. DISPOSITION: Abd US today; therapeutic paracentesis on 04/20/2018. Short-term rehabilitation at [facility] on 04/20/2018 at 11:15 AM. VS,Benjaminbone, I+O VS, Fishbone, I+O Laboratory Tests 04/19/18 05:15 Red Blood Count 3.93 L, Mean Corpuscular Volume 83.5, Mean Corpuscular Hemoglobin 28.0, Mean Corpuscular Hemoglobin Concent 33.5, Red Cell Distribution Width 14.1, Calcium Level 7.9 L Vital Signs Date Time Temp Pulse Resp B/P (MAP) Pulse Ox O2 Delivery O2 Flow Rate FiO2 04/19/18 09:00 70 109/65 04/19/18 06:00 97.5 20 98 04/18/18 14:00 Room Air I&O- Last 24 Hours up to 6 AM 04/19/18 06:00 Intake Total 1140 ml Output Total 300 ml Balance 840 ml MERCY CORTÉS MD Apr 19, 2018 10:56
[2018-04-19 14:00] VITALS: BP 98/60
[2018-04-19 22:00] VITALS: BP 108/57
[2018-04-20] MEDS: LACTULOSE 20 GM/30 ML SYRUP UD PO SCH ×3 (05:26→22:04)
[2018-04-20] MEDS: CIPROFLOXACIN 500 MG TAB PO SCH ×2 (05:26→18:05)
[2018-04-20 06:00] VITALS: BP 108/70
[2018-04-20 06:11] LABS: HEMATOCRIT 32.8 % (36.0-47.0); HEMOGLOBIN 11.1 g/dl (12.0-15.5); MEAN CORPUSCULAR HEMOGLOBIN 28.3 pg (27.0-33.0); MEAN CORPUSCULAR HGB CONC 33.8 g/dl (32.0-36.5); MEAN CORPUSCULAR VOLUME 83.7 fl (80.0-96.0); PLATELET COUNT, AUTOMATED 181 10^3/uL (150-450); RED BLOOD COUNT 3.92 10^6/uL (4.00-5.40); WHITE BLOOD COUNT 12.8 10^3/uL (4.0-10.0)
[2018-04-20 06:34] LABS: CREATININE FOR GFR 1.46 MG/DL (0.55-1.30); POTASSIUM SERUM 4.2 MEQ/L (3.5-5.1)
[2018-04-20] MEDS ORDERED: ONDANSETRON 4MG/2ML VIAL (J2405) IV PRN (08:15)
[2018-04-20] MEDS: rifAXIMin 550 MG TAB (XIFAXAN) PO SCH (09:16)
[2018-04-20] MEDS: LACTOBACILLUS ACIDOPHILUS CAP (BACID) PO SCH ×3 (09:17→18:05)
[2018-04-20] MEDS: FOLIC ACID 1 MG TAB PO SCH (09:17)
[2018-04-20] MEDS: OMEPRAZOLE 20 MG CAP PO SCH (09:17)
[2018-04-20] MEDS: FERROUS SULFATE 325MG TAB PO SCH ×2 (09:17→20:24)
[2018-04-20] MEDS: QUEtiapine FUMARATE 25 MG TAB PO SCH (09:17)
[2018-04-20] MEDS: NADOLOL 20MG TABLET PO SCH (09:17)
[2018-04-20] MEDS: CYANOCOBALAMIN 500 MCG TAB PO SCH (09:18)
--- NOTE | 2018-04-20 12:26 | IPNPDOC ---
Date Seen The patient was seen on 04/20/18. Progress Note SUBJECTIVE: Patient is a 67-year-old female with diarrhea. Patient is evaluated at bedside this morning. She is laying in bed on her right side. Her is at bedside. She has no complaints at this time. She is invested in whatever it takes to improve in order to go home. OBJECTIVE PHYSICAL EXAMINATION: VITAL SIGNS: Please see below. GENERAL: Darkly skinned, frail female, alert and conversant, appropriately dressed in hospital attire, answers questions appropriately, no acute distress. HEENT: Atraumatic, normocephalic, PERRL, EOMI, oral mucosa pink and moist, nasal septum is midline, nares are patent. CARDIOVASCULAR: Regular rate and rhythm, normal S1 and S2, no murmur, rub, click. RESPIRATORY: Clear to auscultation bilaterally, adequate inspiratory and e xpiratory airway excursion, symmetric airway entry, no focal consolidations, no wheeze, rhonchi, crackles. ABDOMINAL: Abdomen appears somewhat distended, but is soft, non-tender, nonpainful to palpation, difficult to appreciate organomegaly. EXTREMITIES: [place] and leather appearance to bilateral lower extremities, no peripheral edema. NEUROLOGICAL: No focal neurological deficits. PSYCHOLOGICAL: Mood and affect appropriate. LABORATORY DATA, IMAGING STUDIES, MICROBIOLOGY: Please see below. Ultrasound-guided paracentesis on 04/13/2018 - 9800 mL of yellow fluid withdrawn. DVT prophylaxis ordered?: TEDs, sequentials; activity as tolerated. ASSESSMENT AND PLAN: This is a 67-year-old female with diarrhea. PROBLEMS: 1. Diarrhea: Patient presented with diarrhea; however, had no further episodes of diarrhea since presentation. Lactulose on hold at that time. Restarted and continue with Lactulose to maintain 2-3 bowel movements daily. Two bowel movements reported today. Inappropriate to obtain gastrointestinal panel as patient is on medication to stimulate bowel movements. Continue to hold loperamide. Possible discharge tomorrow, 04/21/2018, to [facility] for continued physical therapy. 2. Insomnia: Has started ramelteon 8 mg by mouth nightly as needed for sleep. 3. Hyponatremia: Obtaining serum osmolality and urine sodium. Prior urine electrolytes were measured and were within normal limits. Likely secondary to cirrhosis. Patient was previously on Spironolactone and Torsemide, but it has been held due to low blood pressures. Serum osmolality is 277. 4. Leukocytosis: Increasing. Afebrile without hypotension or tachycardia. No signs of infection. Repeating paracentesis with fluid analysis. Prior positive peritoneal fluid culture for Enterococcus faecalis. 5. Acute on chronic kidney disease: Baseline creatinine 1.2. Improvement in creatinine since admission although increased since yesterday. Monitor daily BMP. Urine electrolytes within normal limits. Obtaining urine sodium. 6. Spontaneous bacterial peritonitis: Paracentesis on 04/13/2018 removed 9.8L of fluid. Fluid analysis revealed 381 WBC. Adjusted patient to oral Cip rofloxacin with completion date on 04/21/2018. Gram stain of fluid revealed "few WBC and no organisms seen with no growth aerobically." Peritoneal fluid culture positive for Enterococcus faecalis which is sensitive to Ciprofloxacin with an BRANDON </= 0.5. Repeat paracentesis today, 04/20/2018, with fluid analysis. 7. Cirrhosis with abdominal ascites and esophageal varices: Continue Nadolol and Rifaximin. INR 1.28. DVT prophylaxis with TEDs and sequentials. Ambulation as tolerated. Repeat paracentesis ordered for today, 04/20/2018, with 6.4L of ascitic fluid removed. Patient to receive 5 units of Albumin status-post paracentesis. 8. Normocytic anemia with thrombocytopenia: Peripheral smear obtained which revealed "normocytic anemia and thrombocytopenia in a patient with history of cirrhosis, recent onset, GI bleed should be ruled out. No morphologic abnormalities are noted." Stool for occult blood was negative. Absolute reticulocyte count is 1.4 with a reticulocyte index 0.93 which can indicate possible hypoproliferation. Continue Ferrous sulfate. Iron studies reveal an acute phase reaction. Above normal vitamin B12 level. Folate level is low. Patient is receiving Folic Acid supplementation. 9. Direct hyperbilirubinemia: AST and ALT within normal limits. Likely secondary to cirrhosis. 10. Hemorrhoids: Continue Proctosol. 11. Vitamin B12 deficiency: Continue daily supplementation. Could be secondary to cirrhosis. 12. Gastroesophageal reflux disease: Continue Prilosec. 13. Deconditioning and weakness: Physical therapy ordered with recommendations that patient would benefit from skilled therapy. Continued rehabilitation likely to take place at [facility]. DISPOSITION: Paracentesis today, 04/20/2018. Short-term rehabilitation possibly at [facility]. VS, I&O, 24H, Robin Vital Signs/I&O Vital Signs Date Time Temp Pulse Resp B/P (MAP) Pulse Ox O2 Delivery O2 Flow Rate FiO2 04/20/18 09:17 75 110/67 04/20/18 06:00 97.5 18 96 04/19/18 14:00 Room Air I&O- Last 24 Hours up to 6 AM 04/20/18 06:00 Intake Total 1158 ml Output Total 440 ml Balance 718 ml Laboratory Data 24H LABS Laboratory Tests 2 04/20/18 05:18: Anion Gap 9, Glomerular Filtration Rate 38.0L, Blood Urea Nitrogen 26H, Creatinine 1.46H, Sodium Level 129L, Potassium Level 4.2, Chloride Level 90L, Carbon Dioxide Level 30, Calcium Level 8.0L 04/20/18 05:19: Nucleated Red Blood Cells % (auto) 0.0 04/20/18 07:31: Osmolality 277L CBC/BMP Laboratory Tests 04/20/18 05:18 Calcium Level 8.0 L 04/20/18 05:19 Red Blood Count 3.92 L, Mean Corpuscular Volume 83.7, Mean Corpuscular Hemoglobin 28.3, Mean Corpuscular Hemoglobin Concent 33.8, Red Cell Distribution Width 14.5 Microbiology Microbiology 04/13/18 Fungal Smear, Received Pending 04/13/18 Fungal Culture, Received Pending 04/13/18 Gram Stain - Final, Complete 04/13/18 Body Fluid Culture - Final, Complete 04/13/18 Anaerobic Culture - Final, Complete Enterococcus Faecalis 04/13/18 Acid Fast Stain, Received Pending 04/13/18 Mycobacterial Culture, Received Pending 04/14/18 Stool Occult Blood (BRANDON) - Final, Complete ANEL HUSSEIN DO Apr 20, 2018 12:26
[2018-04-20 15:15] VITALS: BP 93/58
--- NOTE | 2018-04-20 16:42 | REP ---
Ultrasound-guided paracentesis The procedure was performed under the direct supervision of Dr. Cohen. The risks and benefits of the procedure were explained to the patient and informed consent was obtained. The largest pocket of fluid was localized in the left flank using ultrasound guidance. The skin was prepped and draped in a sterile fashion. 1% lidocaine was used as a local anesthetic. An 8-Turkish multi side-hole catheter was inserted using trocar technique. 6400 ml of yellow fluid was withdrawn and discarded. The patient tolerated the procedure well and there were no immediate complications. After the appropriate amount of monitored convalescence the patient was discharged from the department. Reviewed by JACQUE Castillo 04/20/2018 03:56 P Electronically Signed by Lui Cohen MD 04/20/2018 04:33 P
[2018-04-20 22:00] VITALS: BP 98/57
[2018-04-21] MEDS: LACTULOSE 20 GM/30 ML SYRUP UD PO SCH (05:45)
[2018-04-21 06:00] VITALS: BP 93/58
[2018-04-21 08:00] LABS: BASO % 0.1 % (0.0-1.0); EOS % 0.6 % (0.0-3.0); HEMOGLOBIN 9.6 g/dl (12.0-15.5); LYMPH # 0.6 10^3/uL (1.5-4.5); MEAN CORPUSCULAR HEMOGLOBIN 28.7 pg (27.0-33.0); MEAN CORPUSCULAR HGB CONC 34.3 g/dl (32.0-36.5); MEAN CORPUSCULAR VOLUME 83.8 fl (80.0-96.0); MONO # 0.5 10^3/uL (0.0-0.8); MONO % 7.3 % (0.0-5.0); NEUTROPHILS # 5.8 10^3/uL (1.8-7.7); NEUTROPHILS % 81.6 % (36.0-66.0); PLATELET COUNT, AUTOMATED 121 10^3/uL (150-450); RED BLOOD COUNT 3.34 10^6/uL (4.00-5.40); WHITE BLOOD COUNT 7.1 10^3/uL (4.0-10.0)
[2018-04-21 08:17] LABS: CALCIUM LEVEL 8.2 MG/DL (8.8-10.2); CREATININE FOR GFR 1.44 MG/DL (0.55-1.30); GLOMERULAR FILTRATION RATE 38.7 (>45); MAGNESIUM LEVEL 2.7 MG/DL (1.8-2.4); POTASSIUM SERUM 3.8 MEQ/L (3.5-5.1)
[2018-04-21] MEDS: LACTOBACILLUS ACIDOPHILUS CAP (BACID) PO SCH ×2 (09:43→12:15)
[2018-04-21] MEDS: FERROUS SULFATE 325MG TAB PO SCH (09:43)
[2018-04-21] MEDS: rifAXIMin 550 MG TAB (XIFAXAN) PO SCH (09:43)
[2018-04-21] MEDS: QUEtiapine FUMARATE 25 MG TAB PO SCH (09:43)
[2018-04-21] MEDS: OMEPRAZOLE 20 MG CAP PO SCH (09:44)
[2018-04-21] MEDS: CYANOCOBALAMIN 500 MCG TAB PO SCH (09:44)
[2018-04-21] MEDS: FOLIC ACID 1 MG TAB PO SCH (09:45)
[2018-04-21 10:30] VITALS: BP 95/59
[2018-04-21] MEDS: NADOLOL 20MG TABLET PO SCH (10:30)
--- NOTE | 2018-04-21 14:58 | DS.PDOC ---
Discharge Summary General Date of Admission Apr 12, 2018 at 19:39 Date of Discharge 04/21/2018 Primary Care Physician: DARIN CEE M.D. Attending Physician: GRACIELA DEAN MD Discharge Summary PROCEDURES PERFORMED DURING STAY: 1. Ultrasound-guided paracentesis on 04/13/2018 - 9.8 L yellow fluid withdrawn. 2. Ultrasound-guided paracentesis on 04/20/2018 - 6.4 L yellow fluid withdrawn. ADMITTING DIAGNOSES: 1. Diarrhea. 2. Acute renal failure. 3. History of cirrhosis with ascites. 4. History of breast cancer status-post lumpectomy, chemotherapy, and radiation. 5. Gastroesophageal reflux disease. 6. Mood disorder. DISCHARGE DIAGNOSES: 1. Diarrhea, likely medication-induced. 2. Spontaneous bacterial peritonitis. 3. Hypotension. 4. Acute on chronic kidney disease. 5. Cirrhosis. 6. Abdominal ascites. 7. Esophageal varices, controlled. 8. Direct hyperbilirubinemia. 9. Hemorrhoids. 10. Vitamin B12 deficiency. 11. Gastroesophageal reflux disease. 12. Electrolyte derangements - hypocalcemia, hypomagnesemia, hypokalemia - supplemented. 13. Insomnia. 14. Deconditioning and weakness. COMPLICATIONS/CHIEF COMPLAINT: Diarrhea. HISTORY OF PRESENT ILLNESS: Ms. Khan is a 67-year-old female with significant past medical history of cirrhosis. The cause is unknown, as per the patient. She has no history of alcohol abuse, diabetes. She is not on any medication. Questionable history of congestive heart failure (CHF) as per documentation. The patient states she has no underlying heart disease. Also, a seizure disorder is mentioned in her previous histories and physicals (H's and P's). The patient states that she has never had any seizures. She presents to the emergency room with 3-4 loose stools per day for the last 3-4 days, nonbloody nonmucoid stools. She denies any abdominal pain. She denies any nausea or vomiting. She denies any cough, fevers, chills, chest pain, shortness of breath. Notably, in the patient's history, she follows with gastroenterology, Dr. Bullock. She is on lactulose and rifaximine. She has no recent hospitalizations. Rifaximine is the only antibiotic she takes. She has no other risk factors for Clostridium (C ) difficile. She does have a white count of 17. She gets paracentesis every 2 weeks. Her next schedule is 04/14/2018 on Friday. She comes in as an outpatient and has it done. She is being possibly prepared for a transjugular intrahepatic portosystemic shunt (TIPS) procedure. States she will find out more about it upcoming November of 2018. She does not appear toxic on examination. Thus far, she has been unable to give her stool sample for collection since being in the emergency room. HOSPITAL COURSE: Patient was admitted for further evaluation. Lactulose and Loperamide held. Gastrointestinal panel was ordered. No diarrhea documented during admission. Cancelled gastrointestinal panel. Restarted Lactulose with goal of maintaining 2-3 bowel movements daily with order to hold Lactulose when number of bowel movements had been reached. Provided fluid replenishment for dehydration. Electrolytes were supplemented. Continued Rifaximin and Nadolol. Performed 2x therapeutic paracentesis with aggressive albumin supplementation. Started IV Ceftriaxone for spontaneous bacterial peritonitis. Transitioned to oral Ciprofloxacin and completed antibiotic course. Held Spironolactone and Torsemide with an attempt to restart; however, blood pressures remained low so medications were discontinued. Anemia noted on daily labs. Iron studies obtained which revealed acute phase reaction. Continued iron supplementation. Noted to have folic acid deficiency which was supplemented. Noted to have some electrolyte deficiencies, including hyponatremia. Serum osmolality obtained. U rine sodium ordered. Hyponatremia likely secondary to underlying cirrhosis. Physical therapy ordered for deconditioning and weakness. Patient made significant clinical improvements throughout hospitalization with recommendation for patient to continue with short-term rehabilitation at [facility]. Next scheduled paracentesis on 05/06/2018 at 1PM. Stable at time of transfer to [facility]. DISCHARGE MEDICATIONS: Please see below. ALLERGIES: Please see below. PHYSICAL EXAMINATION ON DISCHARGE: VITAL SIGNS: Please see below. GENERAL: Darkly skinned, frail female, alert and conversant, appropriately dressed in hospital attire, answers questions appropriately, no acute distress. HEENT: Atraumatic, normocephalic, PERRL, EOMI, oral mucosa pink and moist, nasal septum is midline, nares are patent. CARDIOVASCULAR: Regular rate and rhythm, normal S1 and S2, no murmur, rub, cli ck. RESPIRATORY: Clear to auscultation bilaterally, adequate inspiratory and expiratory airway excursion, symmetric airway entry, no focal consolidations, no wheeze, rhonchi, crackles. ABDOMINAL: Abdomen appears somewhat distended, but is soft, non-tender, nonpainful to palpation, difficult to appreciate organomegaly. EXTREMITIES: [place] and leather appearance to bilateral lower extremities, no pe ripheral edema. NEUROLOGICAL: No focal neurological deficits. PSYCHOLOGICAL: Mood and affect appropriate. LABORATORY DATA: Please see below. IMAGING: See "procedures." PROGNOSIS: Stable. ACTIVITY: As tolerated. DIET: 2g sodium. DISCHARGE PLAN: Problem: Managing health at home Goal: Improve health & wellness Instructions: Follow DC Instruction DISPOSITION: [facility]. DISCHARGE INSTRUCTIONS: 1. START taking Folic Acid 1mg supplementation daily. 2. Take Lactulose 30mL by mouth every 8 hours UNTIL you have 2-3 bowel movements daily; when 2-3 bowel movements have been attained, STOP taking Lactulose for that day. 3. STOP taking Loperamide. 4. STOP taking Spironolactone due to low blood pressures. 5. STOP taking Torsemide due to low blood pressures. 6. Continue taking all other home medications as prescribed. 7. Follow up with primary care provider, Dr. Cee, in 7-10 days from discharge from [facility]. 8. Continue rehabilitation at [facility], Short-Term Rehabilitation, to improve strength and mobility. ITEMS TO FOLLOWUP ON ON OUTPATIENT: 1. Paracentesis on 05/06/2018 at 1PM. 2. Consider restarting Torsemide and Spironolactone based on blood pressure evaluations. DISCHARGE CONDITION: Stable. TIME SPENT ON DISCHARGE: Greater than 30 minutes. Vital Signs/I&Os Vital Signs Date Time Temp Pulse Resp B/P (MAP) Pulse Ox O2 Delivery O2 Flow Rate FiO2 04/21/18 10:30 95/59 04/21/18 06:00 97.8 57 18 99 Room Air I&O- Last 24 Hours up to 6 AM 04/21/18 06:00 Intake Total 815 ml Output Total 250 ml Balance 565 ml Laboratory Data Labs 24H Laboratory Tests 2 04/21/18 07:31: Immature Granulocyte % (Auto) 1.4, White Blood Count 7.1, Red Blood Count 3.34L, Hemoglobin 9.6L, Hematocrit 28.0L, Mean Corpuscular Volume 83.8, Mean Corpuscular Hemoglobin 28.7, Mean Corpuscular Hemoglobin Concent 34.3, Red Cell Distribution Width 14.5, Platelet Count 121L, Neutrophils (%) (Auto) 81.6H, Lymphocytes (%) (Auto) 9.0L, Monocytes (%) (Auto) 7.3H, Eosinophils (%) (Auto) 0.6, Basophils (%) (Auto) 0.1, Neutrophils # (Auto) 5.8, Lymphocytes # (Auto) 0.6L, Monocytes # (Auto) 0.5, Eosinophils # (Auto) 0.0, Basophils # (Auto) 0.0, Nucleated Red Blood Cells % (auto) 0.0, Anion Gap 8, Glomerular Filtration Rate 38.7L, Blood Urea Nitrogen 25H, Creatinine 1.44H, Sodium Level 129L, Potassium Level 3.8, Chloride Level 91L, Carbon Dioxide Level 30, Calcium Level 8.2L, Magnesium Level 2.7H CBC/BMP Laboratory Tests 04/21/18 07:31 Red Blood Count 3.34 L, Mean Corpuscular Volume 83.8, Mean Corpuscular Hemoglobin 28.7, Mean Corpuscular Hemoglobin Concent 34.3, Red Cell Distribution Width 14.5, Neutrophils (%) (Auto) 81.6 H, Lymphocytes (%) (Auto) 9.0 L, Monocytes (%) (Auto) 7.3 H, Eosinophils (%) (Auto) 0.6, Basophils (%) (Auto) 0.1, Neutrophils # (Auto) 5.8, Lymphocytes # (Auto) 0.6 L, Monocytes # (Auto) 0.5, Eosinophils # (Auto) 0.0, Basophils # (Auto) 0.0, Calcium Level 8.2 L Microbiology Microbiology 04/13/18 Fungal Smear, Received Pending 04/13/18 Fungal Culture, Received Pending 04/13/18 Gram Stain - Final, Complete 04/13/18 Body Fluid Culture - Final, Complete 04/13/18 Anaerobic Culture - Final, Complete Enterococcus Faecalis 04/13/18 Acid Fast Stain, Received Pending 04/13/18 Mycobacterial Culture, Received Pending 04/14/18 Stool Occult Blood (BRANDON) - Final, Complete Discharge Medications Scheduled (Calcium & Magnesium + Zin 334-134-5 mg) 1 Tab Tab, 1 TAB PO BID, (Reported) (Iron) 325 Mg Tab, 325 MG PO BID, (Reported) Cyanocobalamin (Vitamin B-12) 1,000 Mcg Tab, 1,000 MCG PO DAILY, (Reported) Folic Acid (Folic Acid) 1 Mg Tab, 1 MG PO DAILY Lactulose (Lactulose) 10 Gm/15 Ml [place], 30 ML PO Q8H HOLD AFTER 2-3 BOWEL MOVEMENTS DAILY Nadolol (Nadolol) 20 Mg Tab, 20 MG PO DAILY, (Reported) Omeprazole (Omeprazole) 40 Mg Cap, 40 MG PO DAILY, (Reported) Quetiapine Fumerate (Quetiapine Fumarate) 25 Mg Tab, 12.5 MG PO DAILY, (Reported ) Rifaximin (Xifaxan) 550 Mg Tab, 550 MG PO DAILY, (Reported) Scheduled PRN Hydrocortisone (Proctosol Hc) 2.5 % Cre, 1 DOSE HI BID PRN for HEMORRHOIDS, (Reported) Allergies Coded Allergies: Sulfa Drugs (Verified Allergy, Intermediate, 06/25/12) XU Sulfa Drugs Cross Reactors (Verified Allergy, Intermediate, 06/25/12) ANEL CESAR DO Apr 21, 2018 14:58
[2018-04-22] MEDS ORDERED: QUEtiapine FUMARATE 25 MG TAB PO SCH (21:00)
== END 2018-04-21 13:40 | DRG 372 ==
LOC: EDBD 16:46 → M ED 16:46 → M ED INP 19:39 → M MSPAV 04-13 14:31
PROVIDERS: ADMIT Internal Medicine; ATTEND Internal Medicine
PROC: 0W993ZZ Drainage of Right Pleural Cavity, Percutaneous Approach (ICD-10-PCS; principal; 2018-04-13)
PROC: 30233J1 Transfusion of Nonautologous Serum Albumin into Peripheral Vein, Percutaneous Approach (ICD-10-PCS; 2018-04-13)
PROC: 0W9G3ZZ Drainage of Peritoneal Cavity, Percutaneous Approach (ICD-10-PCS; 2018-04-20)
DX: K65.2 Spontaneous bacterial peritonitis (principal); N17.9 Acute kidney failure, unspecified; E87.1 Hypo-osmolality and hyponatremia; R18.8 Other ascites; I85.10 Secondary esophageal varices without bleeding; K52.1 Toxic gastroenteritis and colitis; K74.60 Unspecified cirrhosis of liver; E11.9 Type 2 diabetes mellitus without complications; E86.0 Dehydration; F39 Unspecified mood [affective] disorder; D64.9 Anemia, unspecified; K64.8 Other hemorrhoids; G47.00 Insomnia, unspecified; E80.6 Other disorders of bilirubin metabolism; D69.6 Thrombocytopenia, unspecified; I95.9 Hypotension, unspecified; E53.8 Deficiency of other specified B group vitamins; T47.3X5A Adverse effect of saline and osmotic laxatives, initial encounter; E83.51 Hypocalcemia; E87.6 Hypokalemia; K21.9 Gastro-esophageal reflux disease without esophagitis; I50.9 Heart failure, unspecified; G40.909 Epilepsy, unspecified, not intractable, without status epilepticus; Z85.3 Personal history of malignant neoplasm of breast; Z92.21 Personal history of antineoplastic chemotherapy; Z92.3 Personal history of irradiation; Z88.2 Allergy status to sulfonamides; Z90.49 Acquired absence of other specified parts of digestive tract; Z79.899 Other long term (current) drug therapy

== ENCOUNTER → 2018-04-23 | Outpatient (REF) ==
[~2018-04-23] MED LIST changes: +FOLI1TAB11 PO; +LOPE2CAP PO; +VITA10002 PO
[2018-04-23 10:30] LABS: HEMATOCRIT 31.7 % (36.0-47.0); HEMOGLOBIN 10.7 g/dl (12.0-15.5); MEAN CORPUSCULAR HGB CONC 33.8 g/dl (32.0-36.5); MEAN CORPUSCULAR VOLUME 85.9 fl (80.0-96.0); PLATELET COUNT, AUTOMATED 150 10^3/uL (150-450); RED BLOOD COUNT 3.69 10^6/uL (4.00-5.40); WHITE BLOOD COUNT 8.4 10^3/uL (4.0-10.0)
[2018-04-23 10:58] LABS: CALCIUM LEVEL 8.3 MG/DL (8.8-10.2); CREATININE FOR GFR 1.26 MG/DL (0.55-1.30); GLOMERULAR FILTRATION RATE 45.1 (>45); POTASSIUM SERUM 4.3 MEQ/L (3.5-5.1)
== END ==
LOC: SKLAB7 07:00
PROVIDERS: ATTEND Internal Medicine
DX: E87.1 Hypo-osmolality and hyponatremia (principal); D64.9 Anemia, unspecified

== ENCOUNTER → 2018-04-30 | Outpatient (REF) ==
[~2018-04-30] MED LIST changes: -/FENT25PA; -/WARF25TA; -ASPI1TAB PO; +ASPI81TA26 PO; +COUM1TAB18; -ENOX40SY; +FENT1DIS14; +LOVE1INJ; +VITA500T17 PO; -VITA500T53 PO
[2018-04-30 08:16] LABS: HEMATOCRIT 30.6 % (36.0-47.0); HEMOGLOBIN 10.4 g/dl (12.0-15.5); MEAN CORPUSCULAR HEMOGLOBIN 29.1 pg (27.0-33.0); MEAN CORPUSCULAR VOLUME 85.7 fl (80.0-96.0); PLATELET COUNT, AUTOMATED 140 10^3/uL (150-450); RED BLOOD COUNT 3.57 10^6/uL (4.00-5.40)
[2018-04-30 08:38] LABS: CALCIUM LEVEL 7.9 MG/DL (8.8-10.2); CREATININE FOR GFR 1.31 MG/DL (0.55-1.30); GLOMERULAR FILTRATION RATE 43.1 (>45); POTASSIUM SERUM 5.1 MEQ/L (3.5-5.1)
== END ==
LOC: SKLAB7 07:00
PROVIDERS: ATTEND Internal Medicine
DX: D64.9 Anemia, unspecified (principal); E87.1 Hypo-osmolality and hyponatremia

== ENCOUNTER → 2018-05-06 | Outpatient (CLI) | payer MEDICARE ==
[~2018-05-06] MED LIST changes: +/FENT25PA; +/WARF25TA; +ASPI1TAB PO; -ASPI81TA26 PO; -COUM1TAB18; +ENOX40SY; -FENT1DIS14; -LOVE1INJ; -VITA500T17 PO; +VITA500T53 PO
--- NOTE | 2018-05-07 09:18 | REP ---
Ultrasound-guided paracentesis The procedure was performed under the direct supervision of Dr. Cohen. The risks and benefits of the procedure were explained to the patient and informed consent was obtained. The largest pocket of fluid was localized in the right flank using ultrasound guidance. The skin was prepped and draped in a sterile fashion. 1% lidocaine was used as a local anesthetic. An 8-Turkmen multi side-hole catheter was inserted using trocar technique. 10,100 ml of yellow fluid was withdrawn and discarded. The patient tolerated the procedure well and there were no immediate complications. After the appropriate amount of monitored convalescence the patient was discharged from the department. Reviewed by JACQUE Castillo 05/06/2018 04:51 P Electronically Signed by Lui Cohen MD 05/07/2018 09:08 A
== END ==
LOC: M RADPRO 12:45
PROVIDERS: ATTEND Internal Medicine Gastroenterology
DX: K74.60 Unspecified cirrhosis of liver (principal); K76.6 Portal hypertension; R18.8 Other ascites

== ENCOUNTER → 2018-05-08 | Outpatient (REF) ==
[2018-05-08 13:53] LABS: CREATININE FOR GFR 1.16 MG/DL (0.55-1.30); GLOMERULAR FILTRATION RATE 49.6 (>45); MAGNESIUM LEVEL 2.5 MG/DL (1.8-2.4); POTASSIUM SERUM 5.5 MEQ/L (3.5-5.1); THYROID STIMULATING HORMONE 2.59 uIU/ML (0.358-3.740)
== END ==
LOC: SKLAB7 11:51
PROVIDERS: ATTEND Internal Medicine
DX: R25.2 Cramp and spasm (principal)

== ENCOUNTER → 2018-05-09 | Outpatient (REF) ==
[2018-05-09 08:00] LABS: CALCIUM LEVEL 7.9 MG/DL (8.8-10.2); CREATININE FOR GFR 1.13 MG/DL (0.55-1.30); GLOMERULAR FILTRATION RATE 51.1 (>45); POTASSIUM SERUM 5.4 MEQ/L (3.5-5.1)
== END ==
LOC: SKLAB7 07:00
PROVIDERS: ATTEND Internal Medicine
DX: E87.5 Hyperkalemia (principal)

== ENCOUNTER → 2018-05-11 | Outpatient (REF) | payer MEDICARE | LOC: SKLAB7 08:06 | PROVIDERS: ATTEND Internal Medicine | DX: K74.60 Unspecified cirrhosis of liver (principal) ==

== ENCOUNTER → 2018-05-11 | Outpatient (REF) | payer MEDICARE ==
[~2018-05-11] MED LIST changes: -/FENT25PA; -/WARF25TA; -ASPI1TAB PO; +ASPI81TA26 PO; +COUM1TAB18; -ENOX40SY; +FENT1DIS14; +LOPE2CA PO; +LOVE1INJ; +VITA500T17 PO; -VITA500T53 PO; +VITMTA PO
[2018-05-11 09:16] LABS: ALBUMIN 2.5 GM/DL (3.2-5.2); CALCIUM LEVEL 8.3 MG/DL (8.8-10.2); CREATININE FOR GFR 1.17 MG/DL (0.55-1.30); POTASSIUM SERUM 5.4 MEQ/L (3.5-5.1)
== END ==
LOC: SKLAB7 07:38
DX: K74.60 Unspecified cirrhosis of liver (principal)

== ENCOUNTER → 2018-05-13 | Outpatient (CLI) | payer MEDICARE ==
[~2018-05-13] MED LIST changes: +/FENT25PA; +/WARF25TA; +ASPI1TAB PO; -ASPI81TA26 PO; -COUM1TAB18; +ENOX40SY; -FENT1DIS14; -LOPE2CA PO; -LOVE1INJ; -VITA500T17 PO; +VITA500T53 PO; -VITMTA PO
--- NOTE | 2018-05-13 21:17 | REP ---
Ultrasound-guided paracentesis The procedure was performed under the direct supervision of Dr. Bullard. The risks and benefits of the procedure were explained to the patient and informed consent was obtained. The largest pocket of fluid was localized in the right flank using ultrasound guidance. The skin was prepped and draped in a sterile fashion. 1% lidocaine was used as a local anesthetic. An 8-Estonian multi side-hole catheter was inserted using trocar technique. 13,200 ml of cloudy yellow fluid was withdrawn and discarded. The patient tolerated the procedure well and there were no immediate complications. After the appropriate amount of monitored convalescence the patient was discharged from the department. Reviewed by JACQUE Castillo 05/13/2018 05:20 P Electronically Signed by Fazal Bullard MD 05/13/2018 09:09 P
== END ==
LOC: M RADPRO 13:38
PROVIDERS: ATTEND Nurse Practitioner Family
DX: K74.60 Unspecified cirrhosis of liver (principal); R18.8 Other ascites
CPT/HCPCS: 49083; 96365; P9047

== ENCOUNTER → 2018-05-14 | Outpatient (REF) ==
[2018-05-14 10:24] LABS: CALCIUM LEVEL 8.1 MG/DL (8.8-10.2); CREATININE FOR GFR 1.29 MG/DL (0.55-1.30); GLOMERULAR FILTRATION RATE 43.8 (>45); POTASSIUM SERUM 4.1 MEQ/L (3.5-5.1)
== END ==
LOC: SKLAB7 07:00
PROVIDERS: ATTEND Internal Medicine
DX: E87.6 Hypokalemia (principal)

== ENCOUNTER → 2018-05-20 | Outpatient (REF) ==
[2018-05-20 07:43] LABS: CALCIUM LEVEL 8.2 MG/DL (8.8-10.2); CREATININE FOR GFR 1.35 MG/DL (0.55-1.30); GLOMERULAR FILTRATION RATE 41.5 (>45); POTASSIUM SERUM 4.4 MEQ/L (3.5-5.1)
== END ==
LOC: SKLAB7 07:00
PROVIDERS: ATTEND Internal Medicine
DX: E87.6 Hypokalemia (principal)

== ENCOUNTER → 2018-05-25 | Outpatient (CLI) | payer MEDICARE ==
--- NOTE | 2018-05-26 10:11 | REP ---
Ultrasound-guided paracentesis The procedure was performed under the direct supervision of Dr. Cohen. The risks and benefits of the procedure were explained to the patient and informed consent was obtained. The largest pocket of fluid was localized in the right flank using ultrasound guidance. The skin was prepped and draped in a sterile fashion. 1% lidocaine was used as a local anesthetic. An 8-Ukrainian multi side-hole catheter was inserted using trocar technique. 10,300 ml of yellow fluid was withdrawn and discarded. The patient tolerated the procedure well and there were no immediate complications. After the appropriate amount of monitored convalescence the patient was discharged from the department. Reviewed by JACQUE Castillo 05/25/2018 04:35 P Electronically Signed by Lui Cohen MD 05/26/2018 10:00 A
== END ==
LOC: M RADPRO 13:12
PROVIDERS: ATTEND Internal Medicine
DX: R18.8 Other ascites (principal); Z79.899 Other long term (current) drug therapy
CPT/HCPCS: 49083; 96365; P9047

== ENCOUNTER → 2018-05-26 | Outpatient (REF) ==
[2018-05-26 13:03] LABS: CALCIUM LEVEL 8.4 MG/DL (8.8-10.2); CREATININE FOR GFR 1.26 MG/DL (0.55-1.30); POTASSIUM SERUM 3.4 MEQ/L (3.5-5.1)
== END ==
LOC: SKLAB7 08:56
PROVIDERS: ATTEND Internal Medicine
DX: K74.60 Unspecified cirrhosis of liver (principal); N18.9 Chronic kidney disease, unspecified

== ENCOUNTER → 2018-05-28 | Outpatient (REF) ==
[2018-05-28 10:52] LABS: CREATININE FOR GFR 1.26 MG/DL (0.55-1.30); POTASSIUM SERUM 3.4 MEQ/L (3.5-5.1)
== END ==
LOC: SKLAB7 07:00
PROVIDERS: ATTEND Internal Medicine
DX: E87.6 Hypokalemia (principal)

== ENCOUNTER → 2018-06-08 | Outpatient (CLI) | payer MEDICARE ==
--- NOTE | 2018-06-09 12:04 | REP ---
ULTRASOUND GUIDED PARACENTESIS: REASON FOR PATIENT VISIT: Ascites. REASON FOR EXAM: Ascites. The procedure was performed under the personal supervision of Dr. Cohen. The risks and benefits of the procedure were explained to the patient and informed consent was obtained. The largest pocket of fluid was localized in the right flank using ultrasound guidance. The skin was prepped and draped in the usual fashion. 6 mL of 1% lidocaine were used as a local anesthetic. Using ultrasound guidance an #8 Spanish multi-side hole catheter was inserted using trocar technique. 10,300 mL of yellow fluid was withdrawn and discarded. The patient tolerated the procedure well and there were no immediate complications. After the appropriate amount of monitored convalescence the patient was discharged from the department. Reviewed by JACQUE Dickey 06/09/2018 12:39 P Edited and Electronically Signed by Lui Cohen MD 06/09/2018 09:11 P
== END ==
LOC: M RADPRO 11:53
PROVIDERS: ATTEND Internal Medicine
DX: R18.8 Other ascites (principal); N18.3 Chronic kidney disease, stage 3 (moderate); Z86.2 Personal history of diseases of the blood and blood-forming organs and certain disorders involving the immune mechanism
CPT/HCPCS: 49083; 82728; 96365; P9047

== ENCOUNTER → 2018-06-08 | Outpatient (REF) | payer MEDICARE | LOC: M LAB REF 17:15 | PROVIDERS: ATTEND Family Medicine | DX: N18.3 Chronic kidney disease, stage 3 (moderate) (principal) ==

== ENCOUNTER → 2018-06-22 | Outpatient (CLI) | payer MEDICARE ==
[~2018-06-22] MED LIST changes: -/FENT25PA; -/WARF25TA; -ASPI1TAB PO; +ASPI81TA26 PO; +COUM1TAB18; -ENOX40SY; +FENT1DIS14; +LOVE1INJ; +VITA500T17 PO; -VITA500T53 PO
--- NOTE | 2018-06-22 16:39 | REP ---
Ultrasound-guided paracentesis The procedure was performed under the direct supervision of Dr. Cohen. The risks and benefits of the procedure were explained to the patient and informed consent was obtained. The largest pocket of fluid was localized in the right flank using ultrasound guidance. The skin was prepped and draped in a sterile fashion. 1% lidocaine was used as a local anesthetic. An 8-[place] multi side-hole catheter was inserted using trocar technique. 9700 ml of yellow fluid was withdrawn and discarded. The patient tolerated the procedure well and there were no immediate complications. After the appropriate amount of monitored convalescence the patient was discharged from the department. Reviewed by JACQUE Castillo 06/22/2018 04:14 P Electronically Signed by Lui Cohen MD 06/22/2018 04:30 P
== END ==
LOC: M RADPRO 13:28
PROVIDERS: ATTEND Internal Medicine Gastroenterology
DX: K74.60 Unspecified cirrhosis of liver (principal); K76.6 Portal hypertension; R18.8 Other ascites; Z79.899 Other long term (current) drug therapy; Z88.2 Allergy status to sulfonamides
CPT/HCPCS: 49083; 96365; P9047

== ENCOUNTER → 2018-07-06 | Outpatient (CLI) | payer MEDICARE ==
[~2018-07-06] MED LIST changes: +LOPE2CA PO; +VITMTA PO
--- NOTE | 2018-07-06 16:47 | REP ---
Ultrasound-guided paracentesis The procedure was performed under the direct supervision of Dr. Lincoln. The risks and benefits of the procedure were explained to the patient and informed consent was obtained. The largest pocket of fluid was localized in the right flank using ultrasound guidance. The skin was prepped and draped in a sterile fashion. 1% lidocaine was used as a local anesthetic. An 8-Slovak multi side-hole catheter was inserted using trocar technique. 12,500 ml of yellow fluid was withdrawn and discarded. The patient tolerated the procedure well and there were no immediate complications. After the appropriate amount of monitored convalescence the patient was discharged from the department. Reviewed by JACQUE Castillo 07/06/2018 03:36 P Electronically Signed by Myles Lincoln MD 07/06/2018 04:38 P
== END ==
LOC: M RADPRO 13:44
PROVIDERS: ATTEND Internal Medicine Gastroenterology
DX: K74.60 Unspecified cirrhosis of liver (principal); K76.6 Portal hypertension; R18.8 Other ascites; Z79.899 Other long term (current) drug therapy; Z88.2 Allergy status to sulfonamides
CPT/HCPCS: 49083; 96365; P9047

== ENCOUNTER 2018-07-13 21:19 | Inpatient (IN) | payer MEDICARE ==
[~2018-07-13] VITALS: Ht 157.5 cm; Wt 58.6 kg
[2018-07-13] MEDS: QUEtiapine FUMARATE 25 MG TAB PO SCH (21:00)
[~2018-07-13 21:19] MED LIST changes: -LOPE2CA PO; -VITMTA PO
[2018-07-13 23:50] LABS: BASO % 0.4 % (0.0-1.0); EOS # 0.1 10^3/uL (0.0-0.50); EOS % 1.2 % (0.0-3.0); HEMATOCRIT 31.1 % (36.0-47.0); HEMOGLOBIN 10.3 g/dl (12.0-15.5); LYMPH # 1.1 10^3/uL (1.5-4.5); LYMPH % 12.7 % (24.0-44.0); MEAN CORPUSCULAR HEMOGLOBIN 30.5 pg (27.0-33.0); MEAN CORPUSCULAR HGB CONC 33.1 g/dl (32.0-36.5); MONO # 0.8 10^3/uL (0.0-0.8); MONO % 9.9 % (0.0-5.0); NEUTROPHILS # 6.3 10^3/uL (1.8-7.7); NEUTROPHILS % 75.3 % (36.0-66.0); PLATELET COUNT, AUTOMATED 164 10^3/uL (150-450); RED BLOOD COUNT 3.38 10^6/uL (4.00-5.40); WHITE BLOOD COUNT 8.3 10^3/uL (4.0-10.0)
[2018-07-14] VITALS (8 sets, daily range): BP systolic 88–111; BP diastolic 53–60
[2018-07-14 00:22] LABS: CREATININE FOR GFR 1.99 MG/DL (0.55-1.30)
[2018-07-14 00:23] LABS: BILIRUBIN,TOTAL 0.9 MG/DL (0.2-1.0); CALCIUM LEVEL 8.1 MG/DL (8.8-10.2); GLOMERULAR FILTRATION RATE 26.5 (>45); POTASSIUM SERUM 3.7 MEQ/L (3.5-5.1); TOTAL PROTEIN 5.5 GM/DL (6.4-8.2)
[2018-07-14 01:01] LABS: INR 1.1; PROTHROMBIN TIME 14.3 SECONDS (12.1-14.4)
--- NOTE | 2018-07-14 01:48 | ECGEPIP ---
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
[2018-07-14] MEDS ORDERED: ONDA4TAB6 PO (02:00)
[2018-07-14] MEDS ORDERED: LOPE2CA PO (02:00)
[2018-07-14] MEDS ORDERED: LACT10SO3 PO (02:00)
[2018-07-14] MEDS ORDERED: FOLI1TAB11 PO (02:00)
[2018-07-14] MEDS ORDERED: VITMTA PO (02:00)
[2018-07-14] MEDS ORDERED: FERR1TAB8 PO (02:00)
[2018-07-14] MEDS ORDERED: LOPERAMIDE 2 MG CAP PO PRN (02:15)
[2018-07-14] MEDS ORDERED: ANUSOL HC CREAM 30GM PR PRN (02:15)
[2018-07-14] MEDS ORDERED: ONDANSETRON 4 MG ORAL DISINTEGRATING TAB (Q0162 PER 1MG) PO PRN (02:15)
[2018-07-14] MEDS ORDERED: ACETAMINOPHEN TAB 650MG DOSE (2X325MG) PO PRN (02:15)
[2018-07-14] MEDS ORDERED: MOM 30ML SUSPENSION UDC PO PRN (02:15)
[2018-07-14 07:12] LABS: HEMATOCRIT 29.5 % (36.0-47.0); HEMOGLOBIN 9.8 g/dl (12.0-15.5); MEAN CORPUSCULAR HEMOGLOBIN 30.5 pg (27.0-33.0); MEAN CORPUSCULAR HGB CONC 33.2 g/dl (32.0-36.5); MEAN CORPUSCULAR VOLUME 91.9 fl (80.0-96.0); PLATELET COUNT, AUTOMATED 138 10^3/uL (150-450); RED BLOOD COUNT 3.21 10^6/uL (4.00-5.40); WHITE BLOOD COUNT 6.4 10^3/uL (4.0-10.0)
[2018-07-14 07:37] LABS: ALBUMIN 2.9 GM/DL (3.2-5.2); BILIRUBIN,TOTAL 0.9 MG/DL (0.2-1.0); CALCIUM LEVEL 8.6 MG/DL (8.8-10.2); CREATININE FOR GFR 1.76 MG/DL (0.55-1.30); GLOMERULAR FILTRATION RATE 30.6 (>45); MAGNESIUM LEVEL 2.3 MG/DL (1.8-2.4); POTASSIUM SERUM 3.1 MEQ/L (3.5-5.1); TOTAL PROTEIN 4.9 GM/DL (6.4-8.2)
[2018-07-14] MEDS: HEPARIN SOD (PORCINE) 5000 UNITS/ML VIAL SC SCH ×2 (07:59→20:27)
--- NOTE | 2018-07-14 08:12 | REP ---
Oral chest x-ray: Single view. History: Shortness of breath. Comparison chest x-ray: July 16, 2017. Findings: EKG monitoring electrodes overlie the chest. There are surgical clips in the right upper quadrant of the abdomen. The lungs are under inflated but free of infiltrate. Pleural angles are sharp. Heart size is normal. The aorta somewhat tortuous. Impression: Low level of inspiration. Otherwise no acute disease. Electronically Signed by Myles Lincoln MD 07/14/2018 08:03 A
--- NOTE | 2018-07-14 08:52 | HPE ---
DATE OF ADMISSION: 07/14/2018 PRIMARY CARE PHYSICIAN: Dr. Sim Choi GI: Dr. Bullock and [facility] for liver transplant. 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 Mcfarland ONCOLOGIST: Dr. Nickie Pelayo HISTORY OF PRESENT ILLNESS: Mr. Khan is a 68-year-old female with notable past medical history of hepatic cirrhosis with esophageal varices status-post banding in 2016 as well as recurrent ascites with scheduled paracentesis every 2 weeks and a history of metabolic encephalopathy presumed possibly to her cirrhosis. She presents to the ER after she noted both her legs were increasing in swelling and now oozing fluids out of her legs, more notable on the left leg where she has an ulcer which she used to follow with Dr. Aaron for and is now scheduled again to followup in a few weeks with him. She denies any other complaints however does have quite a distended ascitic abdomen. Her last paracentesis was 07/20 and the next scheduled is 07/06 however she states she was in the process of setting up an earlier paracentesis possibly for tomorrow however now she has this new issue of weeping fluids in her legs. Her previous paracentesis fluid removal has ranged anywhere from 6 to 10 liters. She overall is a poor historian and was per previous records supposed to be on chronic diuretics. Her furosemide and spironolactone were decreased after she was discharged from the [facility] on 05/29/2018. Decreased due to her hypotension. She was taken off of spironolactone and torsemide was decreased from 50 mg daily to 20 mg daily however it does not appear on her med list on admission and when asked about this she is unsure about her diuretics and states that she did not take them at all since she was discharged from [facility] "I did not know I was supposed to continue them". Per reports her is the one who manages her medications and had stated he will further look into her diuretic regimen. She will be admitted for her decompensated cirrhosis as well as an CHUCK noted on admission. PAST MEDICAL HISTORY: Silent PA in 2000, GERD, hyperlipidemia, cirrhosis with esophageal varices status-post banding in [place] in 2016 and very 2 weeks paracentesis, non-Hodgkin's lymphoma status-post chemo in remission since 2008. Invasive ductal carcinoma of the right breast status-post chemo and radiation, vitamin D deficiency, type 2 diabetes mellitus, not on any medicine, history of questionable seizure, CKD stage 3 and B12 folate deficiency. HOME MEDICATIONS: Calcium, magnesium, zinc tablet, ferrous sulfate folate, hydrocortisone as needed, lactulose, loperamide, multivitamin, omeprazole, Zofran, quetiapine, and rifaximin. PAST SURGICAL HISTORY: Fixation of a right femoral neck, hemiarthroplasty of the left hip, cholecystectomy and left cataract, EGD colonoscopy. Umbilical and hiatal hernia. ALLERGIES: Sulfa causes hives. FAMILY HISTORY: Positive for strokes. SOCIAL HISTORY: Denies any alcohol, tobacco or illicit substances. REVIEW OF SYSTEMS: Denies fevers, chills, dizziness. HEENT: Denies any eye pain, headache, blurred vision, eye pain. CARDIAC: Denies chest pain, palpitations, orthopnea, paroxysmal nocturnal dyspnea. PULMONARY: Denies any coughing, wheezing, shortness of breath or phlegm. ABDOMEN: Admits to increased distension since her past paracentesis. Denies any abdominal pain Denies nausea, vomiting, or changes in bowels. Admits to umbilical and hiatal hernia. EXTREMITIES: Admits to left lower leg ulcer which has been weeping fluid and admits to increasing swelling and weeping fluids in both of her lower legs. Denies any calf pain. NEURO: Denies any new pins or needle sensation. No new paresthesias. SKIN: Denies any new rashes besides redness, yeast like infection in her groin and bilateral thighs. PHYSICAL EXAMINATION: VITALS: Temperature 97.5, pulse 65, respirations 18, blood pressure 106/66, map of 79, pulse ox 95% on room air. GENERAL: Resting comfortably in bed in no acute distress. Alert and oriented times three. Fully conversant. HEENT: Normocephalic atraumatic. Extraocular muscles are intact. Moist mucous membranes. CARDIAC: Regular rate and rhythm. Normal S1 and S2. No appreciable murmurs. LUNGS: Clear to auscultation bilaterally in no respiratory distress. No adventitious sounds. Speaking in full sentences without any pauses. ABDOMEN: Significantly distended and tense. There is a prominent central umbilical hernia present that is reducible. No tenderness to palpation. No guarding rebound, rigidity. There is a positive fluid shift. EXTREMITIES: 2+ radial pulses bilaterally. She has 3+ pitting edema bilateral lower extremities. The left lower leg is soaked from the fluid weeping out of her legs which has also wet the bed. MUSCULOSKELETAL: Able to move all extremities independently. NEURO: No focal deficits. SKIN: Mild erythema to the bilateral groins and inner thighs. There is a small 4-5 mm round ulcerated lesion on the left calf which patient states that she has been using the hydrocortisone for. LABS: WBC 8.3, hemoglobin and hematocrit 10.3 and 31.81, platelets 164, sodium potassium 133 and 2.7, begin creatinine 40/0.99, AST ALT 45 and 29 with alkaline phos 173, ammonia 24, albumin 3, PT/INR normal. Chest x-ray read is pending but by visualization appears to be essentially normal without any pleural effusions or infiltrates. ASSESSMENT AND PLAN: 1. Acutely decompensated liver cirrhosis. Patient normally undergoes paracentesis every 2 weeks. Last done on 07/20 and next scheduled for 07/06 however she has significant abdominal distension and 3+ pitting edema bilateral lower extremities that is no weeping out fluids diffusely in her legs. There is question of if she has complied with her home diuretic regimen which the will look into given that he manages her medications. She was to be on torsemide and prior to that was on furosemide and spironolactone which were adjusted due to her episodes of hypotension. Currently given her significant volume overload, we will plan for a paracentesis in the morning. She has a history of removing anywhere from 6-10 liters of fluid and thus she has been consented and albumin has been ordered. Patient does have a history of esophageal varices from the cirrhosis and metabolic encephalopathy as well however currently appears to be at her baseline and otherwise stable. We will actively diuresis with hold parameters with IV Lasix and place on a 1600 mL fluid restriction and monitor intake and output. Her Meld score is 17 and her chart she has already established with liver center in [facility]. Continue home medications including iron supplements and nadolol and rifaximin. Left leg ulcer. Patient used to follow with Dr. Aaron and is scheduled to see him in a few weeks, however since the ulcer has been weeping fluids as well as the rest of her leg we will obtain PT wound consult. 2. CHUCK in the setting of CKD 3. It appears her baseline creatinine is around 1.2 however it is elevated at 1.99 on admission, likely secondary to her hypervolemic status. We will monitor renal function and intake and output with her active diuresis. Continue iron supplement. 3. GERD. Continue home omeprazole. 4. Mood disorder. Continue her Seroquel. 5. Type 2 diabetes mellitus per previous records. It does not appear that she is on any medications for this. Monitor her blood sugars. 6. History of seizure disorder. Per parts of her chart however patient herself denies any seizure disorder and it appears that previous EEG done last year was positive for some questionable seizure activity. She is not on any medications and currently is otherwise stable. Monitor. 7. History of Non-Hodgkin lymphoma status-post chemo and in remission since 2008. 8. History of invasive ductal carcinoma of the right breast status-post chemo and radiation. 9. DVT prophylaxis. Heparin subcu. DISPOSITION: We will admit to he hospitalist service. Improve volume status. Consent has been obtained for albumin and blood products for transfusion. Goal is for paracentesis after she completes albumin infusion. Wounds care consulted. Patient will likely require discharge with diuretic regimen. MTDD
[2018-07-14] MEDS ORDERED: SPIR50TA4 PO (08:53)
[2018-07-14] MEDS ORDERED: TORS100T PO (08:53)
[2018-07-14 10:26] LABS: SPEC. GRAVITY BODY FLUIDS 1.011 (NOT ESTABLISHED)
[2018-07-14 10:35] LABS: SOURCE, BODY FLUID ASCITES
[2018-07-14 10:36] LABS: APPEARANCE, BODY FLUID HAZY (CLEAR); ASCITES FL COLOR YELLOW (COLORLESS)
[2018-07-14 11:04] LABS: SOURCE, BODY FLUID ALBUMIN ASCITES; SOURCE, BODY FLUID GLUCOSE ASCITES; SOURCE, BODY FLUID TOT PROTEIN ASCITES; TOTAL PROTEIN, BODY FLUID 1.1 G/DL (NOT ESTABLISHED)
[2018-07-14] MEDS: rifAXIMin 550 MG TAB (XIFAXAN) PO SCH (11:23)
[2018-07-14] MEDS: NADOLOL 20MG TABLET PO SCH (11:23)
[2018-07-14] MEDS: MULTIVITAMINS/MINERALS THERAP 1 TAB PO SCH (11:23)
[2018-07-14] MEDS: FOLIC ACID 1 MG TAB PO SCH (11:23)
[2018-07-14] MEDS: FUROSEMIDE 40 MG/4 ML VIAL (J1940) IV SCH ×5 (11:23→23:59)
[2018-07-14] MEDS: FERROUS SULFATE 325MG TAB PO SCH (11:23)
[2018-07-14] MEDS: OMEPRAZOLE 20 MG CAP PO SCH (11:24)
[2018-07-14] MEDS: NYSTATIN 100,000 UNITS/GM TOPICAL PWD 15 GM TOP SCH ×2 (11:24→20:27)
--- NOTE | 2018-07-14 20:07 | IPNPDOC ---
Date Seen The patient was seen on 07/14/18. Progress Note SUBJECTIVE: Feeling better after paracentesis. Significant decrease in abdominal girth. 10L out today and thus will receive albumin for volume stabilization. OBJECTIVE PHYSICAL EXAMINATION: VITAL SIGNS: Please see below. GENERAL: Resting comfortably and no acute distress. Alert and oriented times three. Fully conversant. HEENT: Normocephalic atraumatic. Extraocular muscles are intact. Moist mucous membranes. CARDIAC: Regular rate and rhythm. Normal S1 and S2. No appreciable murmurs. LUNGS: Clear to auscultation bilaterally in no respiratory distress. No adventitious sounds. Speaking in full sentences without any pauses. ABDOMEN: S/p paracentesis and ascites and umbilical hernia significantly reduced. No tenderness to palpation. No EXTREMITIES: 2+ radial pulses bilaterally. She has 3+ pitting edema bilateral lower extremities. The left lower leg is soaked from the fluid weeping out of her legs which has also wet the bed even after paracentesis, likely will be chronic MUSCULOSKELETAL: Able to move all extremities independently. NEURO: No focal deficits. SKIN: Mild erythema to the bilateral groins and inner thighs. There is a small 4-5 mm round ulcerated lesion on the left calf which patient states that she has been using the hydrocortisone for. LABORATORY DATA, IMAGING STUDIES, MICROBIOLOGY: Please see below. 68-year-old female with notable past medical history of hepatic cirrhosis with esophageal varices status-post banding in 2017 as well as recurrent ascites with scheduled paracentesis every 2 weeks and a history of metabolic encephalopathy presumed possibly to her cirrhosis. She presents to the ER after she noted both her legs were increasing in swelling and now oozing fluids out of her legs, more notable on the left leg where she has an ulcer which she used to follow with Dr. Aaron for and is now scheduled again to followup in a few weeks with him. She denies any other complaints however does have quite a distended acidic abdomen. Her last paracentesis was 07/20 and the next scheduled is 07/06 however she states she was in the process of setting up an earlier paracentesis possibly for tomorrow however now she has this new issue of weeping fluids in her legs. Her previous paracentesis fluid removal has ranged anywhere from 6 to 10 liters. She overall is a poor historian and was per previous records supposed to be on chronic diuretics. Her furosemide and spironolactone were decreased after she was discharged from the [facility] on 05/29/2018. Decreased due to her hypotension. She was taken off of spironolactone and torsemide and was decreased from 50 mg daily to 20 mg daily however it does not appear on her med list on admission and when asked about this she is unsure about her diuretics and states that she did not take them at all since she was discharged from [facility] "I did not know I was supposed to continue them". Per reports her is the one who manages her medications and had stated he will further look into her diuretic regimen. She will be admitted for her decompensated cirrhosis as well as an CHUCK noted on admission. Acutely decompensated liver cirrhosis. -Patient normally undergoes paracentesis every 2 weeks for therapeutic purpose . -s/p paracentesis 07/14/18 roughly 10L and will receive albumin -question of if she has complied with her home diuretic regimen which the will look into - Patient does have a history of esophageal varices from the cirrhosis and metabolic encephalopathy as well however currently appears to be at her baseline and otherwise stable. -initial Meld score is 17 and her chart she has already established with liver center in [facility]. -Continue home medications including iron supplements and nadolol and rifaximin. -hold furosemide and spironolactone due to her episodes of hypotension. Albumin for volume stabilization. Soft BP after Paracentesis -Albumin -monitor clinically, avoid ivf if possible Electrolyte abnml -replace and monitor Left leg ulcer. -Patient used to follow with Dr. Aaron and is scheduled to see him in a few weeks -wound consult CHUCK in the setting of CKD 3. -stable and improving GERD. Continue home omeprazole. Mood disorder. Continue her Seroquel. Type 2 diabetes mellitus per previous records. -not appear that she kaur any medications for this. Monitor her blood sugars. History of seizure disorder. -Per parts of her chart however patient herself denies any seizure disorder and it appears that previous EEG done last year was positive for some questionable seizure activity. She is not on any medications and currently is otherwise stable. Monitor. History of Non-Hodgkin lymphoma status-post chemo and in remission since 2008. History of invasive ductal carcinoma of the right breast status-post chemo and radiation. DVT prophylaxis. Heparin subcu DISPOSITION: [24hr if no sign of complication from paracentesis and volume status stabilizes. VS, I&O, 24H, [facility] Vital Signs/I&O Vital Signs Date Time Temp Pulse Resp B/P (MAP) Pulse Ox O2 Delivery O2 Flow Rate FiO2 07/14/18 18:30 98.1 71 18 88/53 (65) 99 07/14/18 06:31 Room Air I&O- Last 24 Hours up to 6 AM 07/14/18 06:00 Output Total 200 ml Balance -200 ml Laboratory Data 24H LABS Laboratory Tests 2 07/13/18 22:43: Immature Granulocyte % (Auto) 0.5, White Blood Count 8.3, Red Blood Count 3.38L, Hemoglobin 10.3L, Hematocrit 31.1L, Mean Corpuscular Volume 92.0, Mean C orpuscular Hemoglobin 30.5, Mean Corpuscular Hemoglobin Concent 33.1, Red Cell Distribution Width 13.8, Platelet Count 164, Neutrophils (%) (Auto) 75.3H, Lymphocytes (%) (Auto) 12.7L, Monocytes (%) (Auto) 9.9H, Eosinophils (%) (Auto) 1.2, Basophils (%) (Auto) 0.4, Neutrophils # (Auto) 6.3, Lymphocytes # (Auto) 1.1L, Monocytes # (Auto) 0.8, Eosinophils # (Auto) 0.1, Basophils # (Auto) 0.0, Nucleated Red Blood Cells % (auto) 0.0, Anion Gap 11, Glomerular Filtration Rate 26.5L, Blood Urea Nitrogen 40H, Creatinine 1.99H, Sodium Level 133L, Potassium Level 3.7, Chloride Level 90L, Carbon Dioxide Level 32, Calcium Level 8.1L, Aspartate Amino Transf (AST/SGOT) 45H, Alanine Aminotransferase (ALT/SGPT) 29, Alkaline Phosphatase 173H, Total Bilirubin 0.9, Total Protein 5.5L, Albumin 3.0L, Albumin/Globulin Ratio 1.20 07/13/18 23:48: Ammonia 24 07/14/18 00:25: Prothrombin Time 14.3, Prothromb Time International Ratio 1.10 07/14/18 06:36: Nucleated Red Blood Cells % (auto) 0.0, Anion Gap 8, Glomerular Filtration Rate 30.6L, Blood Urea Nitrogen 37H, Creatinine 1.76H, Sodium Level 134L, Potassium Level 3.1L, Chloride Level 90L, Carbon Dioxide Level 36H, Calcium Level 8.6L, Aspartate Amino Transf (AST/SGOT) 26, Alanine Aminotransferase (ALT/SGPT) 26, Alkaline Phosphatase 154H, Total Bilirubin 0.9, Total Protein 4.9L, Albumin 2.9L, Albumin/Globulin Ratio 1.45, Magnesium Level 2.3 07/14/18 09:20: Body Fluid Source ASCITES, Body Fluid Color YELLOW, Body Fluid Appearance HAZY, Body Fluid Specific [place] 1.011, Body Fluid WBC (Auto) 53H, Body Fluid RBC (Auto) < 2, Body Fluid Mononuclear Cells % Auto 92.5H, Fluid Polymorphonuclear Cell % Auto 7.5H, Body Fluid Glucose Source ASCITES, Body Fluid Glucose 154, Bod y Fluid Protein Source ASCITES, Body Fluid Total Protein 1.1, Body Fluid Albumin Source ASCITES, Body Fluid Albumin 0.7 CBC/BMP Laboratory Tests 07/13/18 22:43 Red Blood Count 3.38 L, Mean Corpuscular Volume 92.0, Mean Corpuscular Hemoglobin 30.5, Mean Corpuscular Hemoglobin Concent 33.1, Red Cell Distribution Width 13.8, Neutrophils (%) (Auto) 75.3 H, Lymphocytes (%) (Auto) 12.7 L, Monocytes (%) (Auto) 9.9 H, Eosinophils (%) (Auto) 1.2, Basophils (%) (Auto) 0.4, Neutrophils # (Auto) 6.3, Lymphocytes # (Auto) 1.1 L, Monocytes # (Auto) 0.8, Eosinophils # (Auto) 0.1, Basophils # (Auto) 0.0, Calcium Level 8.1 L, Aspartate Amino Transf (AST/SGOT) 45 H, Alanine Aminotransferase (ALT/SGPT) 29, Alkaline Phosphatase 173 H, Total Bilirubin 0.9, Total Protein 5.5 L, Albumin 3.0 L 07/14/18 06:36 Red Blood Count 3.21 L, Mean Corpuscular Volume 91.9, Mean Corpuscular Hemoglobin 30.5, Mean Corpuscular Hemoglobin Concent 33.2, Red Cell Distribution Width 13.7, Calcium Level 8.6 L, Aspartate Amino Transf (AST/SGOT) 26, Alanine Aminotransferase (ALT/SGPT) 26, Alkaline Phosphatase 154 H, Total Bilirubin 0.9, Total Protein 4.9 L, Albumin 2.9 L JORGE A BATEMAN MD Jul 14, 2018 20:07
[2018-07-14] MEDS ORDERED: POTASSIUM CHLORIDE 10 MEQ SR TABLET PO ONE (20:15)
[2018-07-14] MEDS ORDERED: MAGNESIUM OXIDE 400 MG TAB (MAG-OX) PO ONE (20:15)
[2018-07-14] MEDS: QUEtiapine FUMARATE 25 MG TAB PO SCH (20:27)
[2018-07-15 06:00] VITALS: BP 90/52
[2018-07-15 06:08] LABS: HEMATOCRIT 25.9 % (36.0-47.0); HEMOGLOBIN 8.8 g/dl (12.0-15.5); MEAN CORPUSCULAR HEMOGLOBIN 30.8 pg (27.0-33.0); MEAN CORPUSCULAR VOLUME 90.6 fl (80.0-96.0); PLATELET COUNT, AUTOMATED 109 10^3/uL (150-450); RED BLOOD COUNT 2.86 10^6/uL (4.00-5.40); WHITE BLOOD COUNT 7.9 10^3/uL (4.0-10.0)
[2018-07-15 06:49] LABS: ALBUMIN 3.2 GM/DL (3.2-5.2); BILIRUBIN,TOTAL 1.5 MG/DL (0.2-1.0); CALCIUM LEVEL 8.3 MG/DL (8.8-10.2); CREATININE FOR GFR 1.67 MG/DL (0.55-1.30); GLOMERULAR FILTRATION RATE 32.5 (>45); POTASSIUM SERUM 3.8 MEQ/L (3.5-5.1)
[2018-07-15] MEDS: FUROSEMIDE 40 MG/4 ML VIAL (J1940) IV SCH ×2 (07:36→15:18)
[2018-07-15 07:37] VITALS: BP 92/58
[2018-07-15] MEDS: NADOLOL 20MG TABLET PO SCH (07:37)
[2018-07-15] MEDS: MULTIVITAMINS/MINERALS THERAP 1 TAB PO SCH (08:37)
[2018-07-15] MEDS: HEPARIN SOD (PORCINE) 5000 UNITS/ML VIAL SC SCH (08:37)
[2018-07-15] MEDS: FOLIC ACID 1 MG TAB PO SCH (08:37)
[2018-07-15] MEDS: rifAXIMin 550 MG TAB (XIFAXAN) PO SCH (08:37)
[2018-07-15] MEDS: FERROUS SULFATE 325MG TAB PO SCH (08:37)
[2018-07-15] MEDS: OMEPRAZOLE 20 MG CAP PO SCH (08:37)
[2018-07-15] MEDS: NYSTATIN 100,000 UNITS/GM TOPICAL PWD 15 GM TOP SCH (08:37)
--- NOTE | 2018-07-15 09:59 | REP ---
Ultrasound-guided paracentesis The procedure was performed by Tiffany Schumacher, under the personal supervision of Dr. Cohen. The risks and benefits of the procedure were explained to the patient and informed consent was obtained both written and verbally. Directly prior to the start of the procedure, a formal time a was completed in the exam room. The largest pocket of fluid was localized in the left flank using ultrasound guidance. The skin was prepped and draped in a sterile fashion and. 7 ml of O .1% lidocaine was used as a local anesthetic. Using ultrasound guidance, an 8-[place] multiphase side-hole catheter was inserted using trocar technique. 10,200 ml of yellow fluid was withdrawn and discarded. 60 ml was drawn off and sent to the lab for further analysis. The patient tolerated the procedure well and there were no immediate complications. After the appropriate falls monitored convalescence the patient was discharged from the department. Reviewed by JACQUE Dickey 07/14/2018 12:31 P Electronically Signed by Lui Cohen MD 07/15/2018 09:52 A
[2018-07-15 14:00] VITALS: BP 106/61
--- NOTE | 2018-07-15 15:51 | DS.PDOC ---
Discharge Summary General Date of Admission Jul 14, 2018 at 02:10 Date of Discharge 07/15/18 Discharge Summary PROCEDURES PERFORMED DURING STAY: s/p paracentesis 07/14/18 ADMITTING DIAGNOSES: Acutely decompensated liver cirrhosis. Mild hypotension Abnormal electrolytes Left leg ulcer Acute kidney injury, chronic kidney disease stage III GERD Mood disorder Diabetes History of seizure disorder History of non-Hodgkin's lymphoma History of invasive ductal carcinoma of the right breast status post chemoth erapy and radiation DISCHARGE DIAGNOSES: Acutely decompensated liver cirrhosis. Mild hypotension Abnormal electrolytes Left leg ulcer Acute kidney injury, chronic kidney disease stage III GERD Mood disorder Diabetes History of seizure disorder History of non-Hodgkin's lymphoma History of invasive ductal carcinoma of the right breast status post chemotherapy and radiation COMPLICATIONS/CHIEF COMPLAINT: Ascites. HISTORY OF PRESENT ILLNESS: [68-year-old female with notable past medical history of hepatic cirrhosis with esophageal varices status-post banding in 2017 as well as recurrent ascites with scheduled paracentesis every 2 weeks and a history of metabolic encephalopathy presumed possibly to her cirrhosis. She presents to the ER after she noted both her legs were increasing in swelling and now oozing fluids out of her legs, more notable on the left leg where she has an ulcer which she used to follow with Dr. Aaron for and is now scheduled again to followup in a few weeks with him. She denies any other complaints however does have quite a distended acidic abdomen. Her last paracentesis was 07/20 and the next scheduled is 07/06 however she states she was in the process of setting up an earlier paracentesis possibly for tomorrow however now she has this new issue of weeping fluids in her legs. Her previous paracentesis fluid removal has ranged anywhere from 6 to 10 liters. She overall is a poor historian and was per previous records supposed to be on chronic diuretics. Her furosemide and spironolactone were decreased after she was discharged from the [facility] on 05/29/2018. Decreased due to her hypotension. She was taken off of spironolactone and torsemide and was decreased from 50 mg daily to 20 mg daily however it does not appear on her med list on admission and when asked about this she is unsure about her diuretics and states that she did not take them at all since she was discharged from [facility] "I did not know I was supposed to continue them". Per reports her is the one who manages her medications and had stated he will further look into her diuretic regimen. She will be admitted for her decompensated cirrhosis as well as an CHUCK noted on admission.]. HOSPITAL COURSE: [Patient was treated for acutely decompensated liver cirrhosis with severe ascites. Patient had paracentesis performed with roughly 10 L of fluid output and albumin therapy. Patient's blood pressure mildly hypertensive but asymptomatic with nadolol therapy and without spironolactonetorsemide. Patient ambulated well and cleared by physical therapy to return home. Patient also felt comfortable returning home without resuming spurlike tone and torsemide. Patient advised to check her blood pressure and to contact PCP for low blood pressure systolic less than 90 with symptoms or high blood pressure systolic greater than 140. Patient understands and looking forward to returning home today. Acutely decompensated liver cirrhosis. -Patient normally undergoes paracentesis every 2 weeks for therapeutic purpose . - s/p paracentesis 07/14/18 roughly 10L and will receive albumin -question of if she has complied with her home diuretic regimen which the husb and will look into - Patient does have a history of esophageal varices from the cirrhosis and metabolic encephalopathy as well however currently appears to be at her baseline and otherwise stable. -initial Meld score is 17 and her chart she has already established with liver center in [facility]. -Continue home medications including iron supplements and nadolol and rifaximin. -hold furosemide and spironolactone due to her episodes of hypotension. Albumin for volume stabilization. Soft BP after Paracentesis -Albumin -monitor clinically, avoid ivf if possible Electrolyte abnml -replace and monitor Left leg ulcer. -Patient used to follow with Dr. Aaron and is scheduled to see him in a few weeks -wound consult CHUCK in the setting of CKD 3. -stable and improving GERD. Continue home omeprazole. Mood disorder. Continue her Seroquel. Type 2 diabetes mellitus per previous records. -not appear that she kaur any medications for this. Monitor her blood sugars. History of seizure disorder. -Per parts of her chart however patient herself denies any seizure disorder and it appears that previous EEG done last year was positive for some questionable seizure activity. She is not on any medications and currently is otherwise stable. Monitor. History of Non-Hodgkin lymphoma status-post chemo and in remission since 2008. History of invasive ductal carcinoma of the right breast status-post chemo and radiation.]. DISCHARGE MEDICATIONS: Please see below. ALLERGIES: Please see below. PHYSICAL EXAMINATION ON DISCHARGE: VITAL SIGNS: Please see below. GENERAL: Resting comfortably and no acute distress. Alert and oriented times three. Fully conversant. HEENT: Normocephalic atraumatic. Extraocular muscles are intact. Moist mucous membranes. CARDIAC: Regular rate and rhythm. Normal S1 and S2. No appreciable murmurs. LUNGS: Clear to auscultation bilaterally in no respiratory distress. No adventitious sounds. Speaking in full sentences without any pauses. ABDOMEN: S/p paracentesis and ascites and umbilical hernia reduced. No tenderness to palpation. No EXTREMITIES: 2+ radial pulses bilaterally. She has 3+ pitting edema bilateral lower extremities MUSCULOSKELETAL: Able to move all extremities independently. NEURO: No focal deficits. LABORATORY DATA: Please see below. IMAGING: [cxr:Low level of inspiration. Otherwise no acute disease.] PROGNOSIS: [improved] ACTIVITY: [As tolerated]. DIET: [Low-salt diet] DISCHARGE PLAN: [Please follow up with PCP within 3 days. DISPOSITION: Home DISCHARGE INSTRUCTIONS: Hold spironolactone and torsemide. Please follow up with PCP within 3 days and please contact PCP with abnormal blood pressure monitoring results. DISCHARGE CONDITION: [Stable]. TIME SPENT ON DISCHARGE: Greater than [30] minutes. Vital Signs/I&Os Vital Signs Date Time Temp Pulse Resp B/P (MAP) Pulse Ox O2 Delivery O2 Flow Rate FiO2 07/15/18 07:37 77 92/58 07/15/18 06:00 98.4 18 95 07/14/18 06:31 Room Air I&O- Last 24 Hours up to 6 AM 07/15/18 06:00 Intake Total 905 ml Output Total 670 ml Balance 235 ml Laboratory Data Labs 24H Laboratory Tests 2 07/15/18 05:20: Nucleated Red Blood Cells % (auto) 0.0, Anion Gap 6L, Glomerular Filtration Rate 32.5L, Blood Urea Nitrogen 38H, Creatinine 1.67H, Sodium Level 136, Potassium Level 3.8#, Chloride Level 95L, Carbon Dioxide Level 35H, Calcium Level 8.3L, Aspartate Amino Transf (AST/SGOT) 29, Alanine Aminotransferase (ALT/SGPT) 26, Alkaline Phosphatase 130H, Total Bilirubin 1.5#H, Total Protein 5.0L, Albumin 3.2, Albumin/Globulin Ratio 1.78 CBC/BMP Laboratory Tests 07/15/18 05:20 Red Blood Count 2.86 L, Mean Corpuscular Volume 90.6, Mean Corpuscular Hemoglobin 30.8, Mean Corpuscular Hemoglobin Concent 34.0, Red Cell Distribution Width 13.4, Calcium Level 8.3 L, Aspartate Amino Transf (AST/SGOT) 29, Alanine Aminotransferase (ALT/SGPT) 26, Alkaline Phosphatase 130 H, Total Bilirubin 1.5 #H, Total Protein 5.0 L, Albumin 3.2 Discharge Medications Scheduled Calcium Carb/Mag Ox/Zinc Sulf (Fawjoze-Cszqzfoct-Ealf Tablet) 1 Tab Tab, 1 TAB PO DAILY, (Reported) Ferrous Sulfate (Ferrous Sulfate) 325 Mg Tablet, 325 MG PO DAILY, (Reported) Folic Acid (Folic Acid) 1 Mg Tablet, 1 MG PO DAILY, (Reported) Lactulose (Lactulose) 10 Gm/15 Ml Solution, 30 GM PO BID, (Reported) Multivitamins (Thera M Plus Tablet) 1 Each Tablet, 1 TAB PO DAILY, (Reported) Nadolol (Nadolol) 20 Mg Tab, 20 MG PO DAILY, (Reported) Omeprazole (Omeprazole) 40 Mg Cap, 40 MG PO DAILY, (Reported) Quetiapine Fumarate (Quetiapine Fumarate) 25 Mg Tab, 12.5 MG PO QHS, (Reported) Rifaximin (Xifaxan) 550 Mg Tab, 550 MG PO DAILY, (Reported) Scheduled PRN Hydrocortisone (Proctosol-Hc) 2.5 % Cre, 1 DOSE FL BID PRN for HEMORRHOIDS, (Reported) Loperamide HCl (Loperamide) 2 Mg Capsule, 2 MG PO Q4H PRN for DIARRHEA, (Reported) Ondansetron (Ondansetron Odt) 4 Mg Tab.rapdis, 4 MG PO TID PRN for NAUSEA, (Reported) Allergies Coded Allergies: Sulfa (Sulfonamide Antibiotics) (Verified Allergy, Intermediate, hives, 07/13/18) JORGE A BATEMAN MD Jul 15, 2018 15:51
== END 2018-07-15 18:00 | disposition home or self-care (01) | DRG 433 ==
LOC: M ED 21:19 → M ED INP 07-14 02:10 → M MSPAV 07-14 15:20
PROVIDERS: ADMIT Internal Medicine; ATTEND Internal Medicine
PROC: 0W9G3ZZ Drainage of Peritoneal Cavity, Percutaneous Approach (ICD-10-PCS; principal; 2018-07-14)
DX: K74.60 Unspecified cirrhosis of liver (principal); R18.8 Other ascites; N17.9 Acute kidney failure, unspecified; L97.929 Non-pressure chronic ulcer of unspecified part of left lower leg with unspecified severity; I85.10 Secondary esophageal varices without bleeding; N18.3 Chronic kidney disease, stage 3 (moderate); K21.9 Gastro-esophageal reflux disease without esophagitis; F79 Unspecified intellectual disabilities; E11.9 Type 2 diabetes mellitus without complications; I95.9 Hypotension, unspecified; G40.909 Epilepsy, unspecified, not intractable, without status epilepticus; Z85.3 Personal history of malignant neoplasm of breast; Z79.899 Other long term (current) drug therapy; Z88.2 Allergy status to sulfonamides; I25.2 Old myocardial infarction; E78.5 Hyperlipidemia, unspecified

== ENCOUNTER → 2018-07-20 | Outpatient (CLI) | payer MEDICARE ==
[~2018-07-20] MED LIST changes: +LOPE2CA PO; +VITMTA PO
--- NOTE | 2018-07-22 09:25 | REP ---
Ultrasound-guided paracentesis The procedure was performed by Ramon Nunn, under the direct supervision of Dr. Cohen. The risks and benefits of the procedure were explained to the patient and informed consent was obtained both verbally and written. Directly prior to the start of the procedure, a formal timeout was completed in the procedure room. Under ultrasound guidance, the largest pocket of fluid in the left flank was localized and skin was marked. The skin was then prepped and draped in a sterile fashion. 8 ml of 1% lidocaine was used as a local anesthetic. Using ultrasound guidance, an 8-Namibian multiphase side-hole catheter was inserted using truck car technique. 6,700 mL of yellow colored fluid was withdrawn and discarded. The patient tolerated the procedure well and there were no immediate complications. After the appropriate monitored convalescence the patient was discharged from the department. Reviewed by JACQUE Dickey 07/21/2018 08:22 A Electronically Signed by Lui Cohen MD 07/22/2018 09:16 A
== END ==
LOC: M RADPRO 13:38
PROVIDERS: ATTEND Internal Medicine Gastroenterology
DX: R18.8 Other ascites (principal); K76.6 Portal hypertension; K74.60 Unspecified cirrhosis of liver
CPT/HCPCS: 49083; 96365; P9047

== ENCOUNTER → 2018-08-03 | Outpatient (CLI) | payer MEDICARE ==
--- NOTE | 2018-08-03 19:19 | REP ---
Ultrasound-guided paracentesis The procedure was performed by JACQUE Nunn, under the direct supervision of Dr. Lincoln. The risks and benefits of the procedure were explained to the patient and informed consent was obtained both verbally and written. Directly prior to the start of the procedure, a formal timeout was completed in the procedure room. Under ultrasound guidance, the largest pocket of fluid in the right flank was localized and skin was marked. The skin was then prepped and draped in a sterile fashion. 10 ml of 1% lidocaine was used as a local anesthetic. Using ultrasound guidance, an 8-Croatian multiphase side-hole catheter was inserted using trocar technique. 11,400 mL of dark yellow colored fluid was withdrawn and discarded. The patient tolerated the procedure well and there were no immediate complications. After the appropriate monitored convalescence the patient was discharged from the department. Reviewed by JACQUE Dickey 08/03/2018 03:33 P Electronically Signed by Myles Lincoln MD 08/03/2018 07:10 P
== END ==
LOC: M RADPRO 11:56
PROVIDERS: ATTEND Internal Medicine Gastroenterology
DX: K74.60 Unspecified cirrhosis of liver (principal); K76.6 Portal hypertension; R18.8 Other ascites
CPT/HCPCS: 49083; 96365; P9047

== ENCOUNTER → 2018-08-14 | Outpatient (CLI) | payer MEDICARE ==
--- NOTE | 2018-08-18 09:58 | REP ---
Ultrasound-guided paracentesis The procedure was performed under the direct supervision of Dr. Cohen. The risks and benefits of the procedure were explained to the patient and informed consent was obtained. The largest pocket of fluid was localized in the left flank using ultrasound guidance. The skin was prepped and draped in a sterile fashion. 1% lidocaine was used as a local anesthetic. An 8-Korean multi side-hole catheter was inserted using trocar technique. 13,500 ml of clear yellow fluid was withdrawn and discarded. The patient tolerated the procedure well and there were no immediate complications. After the appropriate amount of monitored convalescence the patient was discharged from the department. Reviewed by JACQUE Castillo 08/14/2018 03:24 P Electronically Signed by Lui Cohen MD 08/18/2018 09:50 A
== END ==
LOC: M RADPRO 12:17
PROVIDERS: ATTEND Internal Medicine Gastroenterology
DX: K76.6 Portal hypertension (principal); R18.8 Other ascites; K74.60 Unspecified cirrhosis of liver; Z79.899 Other long term (current) drug therapy; Z88.2 Allergy status to sulfonamides
CPT/HCPCS: 49083; 96365; P9047

== ENCOUNTER → 2018-09-09 | Outpatient (CLI) | payer MEDICARE ==
[~2018-09-09] MED LIST changes: +MIDO5TA PO
--- NOTE | 2018-09-09 16:49 | REP ---
Ultrasound-guided paracentesis The procedure was performed by JACQUE Nunn, under the direct supervision of Dr. Cohen. The risks and benefits of the procedure were explained to the patient and informed consent was obtained both verbally and written. Directly prior to the start of the procedure, a formal timeout was completed in the procedure room. Under ultrasound guidance, the largest pocket of fluid in the left flank was localized and skin was marked. The skin was then prepped and draped in a sterile fashion. 10 ml of 1% lidocaine was used as a local anesthetic. Using ultrasound guidance, an 8-Italian multi side-hole catheter was inserted using trocar technique. 9,600 mL of the light yellow colored fluid was withdrawn and discarded. The patient tolerated the procedure well and there were no immediate complications. After the appropriate monitored convalescence the patient was discharged from the department. Reviewed by JACQUE Dickey 09/09/2018 04:10 P Electronically Signed by Lui Cohen MD 09/09/2018 04:41 P
== END ==
LOC: M RADPRO 11:13
PROVIDERS: ATTEND Internal Medicine Gastroenterology
DX: K74.60 Unspecified cirrhosis of liver (principal); K76.6 Portal hypertension; R18.8 Other ascites
CPT/HCPCS: 49083; 96365; 96366; P9047

== ENCOUNTER → 2018-09-23 | Outpatient (CLI) | payer MEDICARE ==
[~2018-09-23] MED LIST changes: +CYAN100049 PO; +OMEP1CAP73 PO; -OMEP20CA3 PO; -OMEP40CA2 PO; +OMEP40CA97 PO; -VITA10002 PO
--- NOTE | 2018-09-23 16:24 | REP ---
Ultrasound-guided paracentesis The procedure was performed by JACQUE Nunn, under the direct supervision of Dr. Cohen. The risks and benefits of the procedure were explained to the patient and informed consent was obtained both verbally and written. Directly prior to the start of the procedure, a formal timeout was completed in the procedure room. Under ultrasound guidance, the largest pocket of fluid in the left flank was localized and skin was marked. The skin was then prepped and draped in a sterile fashion. 7 ml of 1% lidocaine was used as a local anesthetic. Using ultrasound guidance, an 8-Citizen Of [place] multi side-hole catheter was inserted using trocar technique. 7,850 mL of clear yellow colored fluid was withdrawn and discarded. The patient tolerated the procedure well and there were no immediate complications. After the appropriate monitored convalescence the patient was discharged from the department. Reviewed by JACQUE Dickey 09/23/2018 02:46 P Electronically Signed by Lui Cohen MD 09/23/2018 04:14 P
== END ==
LOC: M RADPRO 11:21
PROVIDERS: ATTEND Internal Medicine Gastroenterology
DX: K74.60 Unspecified cirrhosis of liver (principal); K76.6 Portal hypertension; R18.8 Other ascites; Z88.2 Allergy status to sulfonamides; Z79.899 Other long term (current) drug therapy; Z79.891 Long term (current) use of opiate analgesic
CPT/HCPCS: 49083; 96365; P9047

== ENCOUNTER → 2018-10-07 | Outpatient (CLI) | payer MEDICARE ==
[~2018-10-07] MED LIST changes: -OMEP1CAP73 PO; +OMEP20CA4 PO; +OMEP40CA2 PO; -OMEP40CA97 PO
[2018-10-07 12:25] VITALS: BP 95/55
--- NOTE | 2018-10-08 11:41 | REP ---
Ultrasound-guided paracentesis The procedure was performed by JACQUE Nunn, under the direct supervision of Dr. Cohen. The risks and benefits of the procedure were explained to the patient and informed consent was obtained both verbally and written. Directly prior to the start of the procedure, a formal timeout was completed in the procedure room. Under ultrasound guidance, the largest pocket of fluid in the left flank was localized and skin was marked. The skin was then prepped and draped in a sterile fashion. 10 ml of 1% lidocaine was used as a local anesthetic. Using ultrasound guidance, an 8-Arabic multi side-hole catheter was inserted using trocar technique. 8.850 mL of cloudy yellow colored fluid was withdrawn and discarded. The patient tolerated the procedure well and there were no immediate complications. After the appropriate monitored convalescence the patient was discharged from the department. Reviewed by JACQUE Dickey 10/07/2018 12:52 P Electronically Signed by Lui Cohen MD 10/08/2018 11:32 A
== END ==
LOC: M RADPRO 09:54
PROVIDERS: ATTEND Internal Medicine Gastroenterology
DX: R18.8 Other ascites (principal); K76.6 Portal hypertension; K74.60 Unspecified cirrhosis of liver
CPT/HCPCS: 49083; 96365; P9047

== ENCOUNTER 2018-10-11 15:26 | Emergency (ER) | payer MEDICARE ==
[~2018-10-11] VITALS: Ht 157.5 cm; Wt 56.0 kg
[2018-10-11 16:08] LABS: BASO % 0.1 % (0.0-1.0); HEMATOCRIT 32.9 % (36.0-47.0); HEMOGLOBIN 10.9 g/dl (12.0-15.5); LYMPH # 0.7 10^3/uL (1.5-4.5); LYMPH % 7.3 % (24.0-44.0); MEAN CORPUSCULAR HEMOGLOBIN 30.2 pg (27.0-33.0); MEAN CORPUSCULAR HGB CONC 33.1 g/dl (32.0-36.5); MEAN CORPUSCULAR VOLUME 91.1 fl (80.0-96.0); MONO # 0.5 10^3/uL (0.0-0.8); MONO % 4.9 % (0.0-5.0); NEUTROPHILS # 8.7 10^3/uL (1.8-7.7); NEUTROPHILS % 87.3 % (36.0-66.0); PLATELET COUNT, AUTOMATED 108 10^3/uL (150-450); RED BLOOD COUNT 3.61 10^6/uL (4.00-5.40); WHITE BLOOD COUNT 9.9 10^3/uL (4.0-10.0)
[2018-10-11 16:57] LABS: ALBUMIN 3.1 GM/DL (3.2-5.2); BILIRUBIN,DIRECT 0.5 MG/DL (0.0-0.2); BILIRUBIN,TOTAL 2.5 MG/DL (0.2-1.0); TOTAL PROTEIN 5.2 GM/DL (6.4-8.2)
[2018-10-11 17:13] LABS: CALCIUM LEVEL 8.4 MG/DL (8.8-10.2); CREATININE FOR GFR 2.14 MG/DL (0.55-1.30); GLOMERULAR FILTRATION RATE 24.4 (>45)
[2018-10-11] MEDS ORDERED: POTASSIUM CHLORIDE 10 MEQ SR TABLET PO ONE (17:45)
[2018-10-11] MEDS ORDERED: LACTULOSE 20 GM/30 ML SYRUP UD PO ONE (20:30)
[2018-10-11 20:35] VITALS: BP 95/55
--- NOTE | 2018-10-12 09:30 | REP ---
KUB ABDOMEN AND PELVIS: Two KUB films of abdomen and pelvis performed. There is no evidence of bowel obstruction. No dilated small bowel loops are seen. There is no evidence of fecal impaction. Metallic clips are seen in the right upper quadrant. There are vascular calcifications in the pelvis. There are degenerative changes of the spine. There are metallic clips in the right upper quadrant. Metallic screws are seen in the proximal right femur. There is a prosthesis of the proximal left femur. Electronically Signed by Lui Cohen MD 10/12/2018 09:38 A
[2018-10-19] MEDS ORDERED: NADO20TA (17:34)
[2018-10-19] MEDS ORDERED: SPIR50TA4 (17:34)
[2018-10-19] MEDS ORDERED: TORS100T (17:34)
== END 2018-10-11 20:58 | disposition home or self-care (01) ==
LOC: M ED 15:26
DX: K59.00 Constipation, unspecified (principal); I50.9 Heart failure, unspecified; I25.2 Old myocardial infarction; K21.9 Gastro-esophageal reflux disease without esophagitis; R51 Headache; C85.90 Non-Hodgkin lymphoma, unspecified, unspecified site; Z85.3 Personal history of malignant neoplasm of breast; Z88.1 Allergy status to other antibiotic agents; Z88.2 Allergy status to sulfonamides; Z79.899 Other long term (current) drug therapy

== ENCOUNTER 2018-10-19 16:51 | Emergency (ER) | payer MEDICARE ==
[~2018-10-19] VITALS: Ht 157.5 cm; Wt 64.5 kg
[2018-10-19] MEDS ORDERED: NADO20TA PO (17:34)
[2018-10-19] MEDS ORDERED: TORS100T PO (17:34)
[2018-10-19] MEDS ORDERED: SPIR50TA4 PO (17:34)
[2018-10-19] MEDS ORDERED: VITAMIN A & D OINTMENT 60 GM TOP ONE (19:45)
[2018-10-19 20:49] VITALS: BP 127/72
== END 2018-10-19 20:51 | disposition home or self-care (01) ==
LOC: M ED 16:51
DX: L98.8 Other specified disorders of the skin and subcutaneous tissue (principal); E11.9 Type 2 diabetes mellitus without complications; N28.9 Disorder of kidney and ureter, unspecified; D64.9 Anemia, unspecified; D69.6 Thrombocytopenia, unspecified; K74.60 Unspecified cirrhosis of liver; K21.9 Gastro-esophageal reflux disease without esophagitis; Z79.899 Other long term (current) drug therapy; Z88.1 Allergy status to other antibiotic agents; Z88.2 Allergy status to sulfonamides; Z88.8 Allergy status to other drugs, medicaments and biological substances

== ENCOUNTER → 2018-10-21 | Outpatient (CLI) | payer MEDICARE ==
[~2018-10-21] MED LIST changes: +NADO20TA; +TORS100T
[2018-10-21 14:05] VITALS: BP 96/51
--- NOTE | 2018-10-21 18:20 | REP ---
Ultrasound-guided paracentesis The procedure was performed under the direct supervision of Dr. Lincoln. The risks and benefits of the procedure were explained to the patient and informed consent was obtained. The largest pocket of fluid was localized in the left flank using ultrasound guidance. The skin was prepped and draped in a sterile fashion. 1% lidocaine was used as a local anesthetic. An 8-Cymro multi side-hole catheter was inserted using trocar technique. 12,100 ml of yellow fluid was withdrawn and discarded. The patient tolerated the procedure well and there were no immediate complications. After the appropriate amount of monitored convalescence the patient was discharged from the department. Reviewed by JACQUE Castillo 10/21/2018 04:16 P Electronically Signed by Myles Lincoln MD 10/21/2018 06:11 P
== END ==
LOC: M RADPRO 11:28
PROVIDERS: ATTEND Internal Medicine Gastroenterology
DX: K74.60 Unspecified cirrhosis of liver (principal); K76.6 Portal hypertension; R18.8 Other ascites
CPT/HCPCS: 49083; 96365; P9047

== ENCOUNTER 2018-11-01 12:57 | Inpatient (IN) | payer MEDICARE ==
[~2018-11-01 12:57] MED LIST changes: -NADO20TA; -TORS100T
[2018-11-01] MEDS ORDERED: NS 500 ML IV ONE (14:00)
[2018-11-01 15:25] LABS: ALBUMIN 2.1 GM/DL (3.2-5.2); BILIRUBIN,DIRECT 0.6 MG/DL (0.0-0.2); BILIRUBIN,TOTAL 1.5 MG/DL (0.2-1.0); CALCIUM LEVEL 8.2 MG/DL (8.8-10.2); CREATININE FOR GFR 3.49 MG/DL (0.55-1.30); GLOMERULAR FILTRATION RATE 13.9 (>45); POTASSIUM SERUM 3.9 MEQ/L (3.5-5.1); TOTAL PROTEIN 4.6 GM/DL (6.4-8.2)
[2018-11-01] MEDS ORDERED: MORPHINE 4 MG/ML 1ML VIAL/SYRINGE (J2270) IV PRN (16:30)
[2018-11-01] MEDS ORDERED: SCOPOLAMINE 1MG TRANSDERMAL PATCH TOP PRN (16:30)
[2018-11-01] MEDS ORDERED: FLEET ENEMA PR PRN (16:30)
[2018-11-01] MEDS ORDERED: ONDANSETRON 4MG/2ML VIAL (J2405) IV PRN (16:30)
--- NOTE | 2018-11-01 19:28 | REP ---
REASON: Hypotension. COMPARISON: Multiple, the latest 07/14/2018 The technique utilized in obtaining the radiograph has magnified the cardiac silhouette and accentuated the interstitial markings. There is mild cardiomegaly accentuated by technique. The lung peñaloza are unchanged. Basilar fibrotic changes are accentuated by technique. No acute patchy parenchymal opacities or pleural effusions have developed. There is thoracic aortic tortuosity status quo. There is no change in the lung peñaloza. IMPRESSION:No change. Electronically Signed by Tomer Marrero DO 11/02/2018 10:01 A
[2018-11-01 20:45] VITALS: BP 87/52
[2018-11-02] MEDS: LORazepam 1 MG TAB PO PRN (15:18)
--- NOTE | 2018-11-02 20:38 | ECGEPIP ---
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
--- NOTE | 2018-11-03 10:47 | HPEPDOC ---
[facility] Medical History & Physical Date of Admission Nov 01, 2018 Date of Service: Nov 01, 2018 History and Physical CHIEF COMPLAINT: Comfort care HISTORY OF PRESENT ILLNESS: 68 yo female with extensive medical history including hepatorenal syndrome, end stage liver disease presents for comfort care and placement with hospice. Currently denies any medical complaints. Denies shortness of breath, chest pain, abdominal pain, nausea, vomiting, diarrhea. Past Medical History: # Idiopathic hepatic cirrhosis with recurrent ascites. #Hepatorenal syndrome. #CKDIII # HTN. #Depression. #Right breast invasive ductal carcinoma s/p chemo and RT #Non Hodgkin's lymphoma #Seizure disorder #Diabetes. #GERD ALLERGIES: Please see below. REVIEW OF SYSTEMS: Negative except as per HPI. HOME MEDICATIONS: Please see below. PHYSICAL EXAMINATION: VITAL SIGNS: See below GENERAL APPEARANCE: NAD, lying comfortably in bed, not engaged in conversation but responds appropriately to all questions HEENT: NC/AT CARDIOVASCULAR: +S1S2, RRR LUNGS: CTA B/L ABDOMEN: soft, NT, +BS EXTREMITIES: no edema NEUROLOGICAL: no gross focal deficits PSYCHIATRIC: AAOx3 LABORATORY DATA: See below. MICROBIOLOGY: Please see below. ASSESSMENT: 68 yo female with history of end stage liver disease admitted for comfort care and placement with hospice. # Idiopathic hepatic cirrhosis with recurrent ascites - paracentesis as needed for comfort #Hepatorenal syndrome. #CKDIII # HTN. #Depression. #Right breast invasive ductal carcinoma s/p chemo and RT #Non Hodgkin's lymphoma #Seizure disorder #Diabetes. 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 Hospice consult pending. Vital Signs Vital Signs Date Time Temp Pulse Resp B/P (MAP) Pulse Ox O2 Delivery O2 Flow Rate FiO2 11/01/18 20:45 56 87/52 (64) 11/01/18 18:45 100 11/01/18 14:30 20 Room Air 11/01/18 13:19 97.7 Home Medications Scheduled Calcium Carb/Mag Ox/Zinc Sulf (Cthvcxf-Ayhmmtaby-Pjbd Tablet) 1 Tab Tab, 1 TAB PO DAILY Ferrous Sulfate (Ferrous Sulfate) 325 Mg Tablet, 325 MG PO BID Folic Acid (Folic Acid) 1 Mg Tablet, 1 MG PO DAILY Lactulose (Lactulose) 10 Gm/15 Ml Solution, 30 ML PO BID HOLD AFTER 2-3 BOWEL MOVEMENTS DAILY Nadolol (Nadolol) 20 Mg Tablet, 20 MG PO QHS Omeprazole (Omeprazole) 40 Mg Cap, 40 MG PO DAILY Quetiapine Fumarate (Quetiapine Fumarate) 25 Mg Tab, 25 MG PO QHS Spironolactone (Spironolactone) 50 Mg Tablet, 50 MG PO BID 0800/1600 Torsemide (Torsemide) 100 Mg Tablet, 50 MG PO DAILY Allergies Coded Allergies: Lincosamides (Verified Allergy, Intermediate, HIVES, 08/25/18) Macrolide Antibiotics (Verified Allergy, Intermediate, HIVES, 08/25/18) Sulfa (Sulfonamide Antibiotics) (Verified Allergy, Intermediate, hives, 07/13/18) erythromycin base (Verified Allergy, Intermediate, hives, 11/01/18) A-FIB/CHADSVASC A-FIB History Current/History of A-Fib/PAF?: No Current PO Anticoag Therapy: No MERCY CORTÉS MD Nov 03, 2018 10:47
[2018-11-03] MEDS: LORazepam 1 MG TAB PO PRN ×3 (11:00→20:23)
--- NOTE | 2018-11-03 11:01 | IPNPDOC ---
Text Note Date of Service The patient was seen on 11/02/18. NOTE Subjective: No new medical complaints, no overnight events reported. Objective: PHYSICAL EXAMINATION: VITAL SIGNS: See below GENERAL APPEARANCE: NAD, lying comfortably in bed, not engaged in conversation but responds appropriately to all questions HEENT: NC/AT CARDIOVASCULAR: +S1S2, RRR LUNGS: CTA B/L ABDOMEN: soft, NT, +BS EXTREMITIES: no edema NEUROLOGICAL: no gross focal deficits PSYCHIATRIC: AAOx3 LABORATORY DATA: See below. MICROBIOLOGY: Please see below. ASSESSMENT: 68 yo female with history of end stage liver disease admitted for comfort care and placement with hospice. # Idiopathic hepatic cirrhosis with recurrent ascites - paracentesis as needed for comfort #Hepatorenal syndrome. #CKDIII # HTN. #Depression. #Right breast invasive ductal carcinoma s/p chemo and RT #Non Hodgkin's lymphoma #Seizure disorder #Diabetes. 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 Hospice consult pending. VS,Fishbone, I+O VS, Fishbone, I+O Vital Signs Date Time Temp Pulse Resp B/P (MAP) Pulse Ox O2 Delivery O2 Flow Rate FiO2 11/01/18 20:45 56 87/52 (64) 11/01/18 18:45 100 11/01/18 14:30 20 Room Air 11/01/18 13:19 97.7 I&O- Last 24 Hours up to 6 AM 11/03/18 06:00 Intake Total 60 ml Balance 60 ml MERCY CORTÉS MD Nov 03, 2018 11:01
--- NOTE | 2018-11-03 16:13 | IPNPDOC ---
Text Note Date of Service The patient was seen on 11/03/18. NOTE SUBJECTIVE: Pt c/o fatigue, loss of appetite. No acute events overnight. PHYSICAL EXAMINATION: VITAL SIGNS: Please see below. GENERAL: Anxious F, sitting up in bed awake, alert, oriented speaking in complete sentences HEENT: Moist mucous membranes no elevation in CVP, PERRLA CARDIOVASCULAR: S1 S2 regular RESPIRATORY: Coarse lung sounds b/l ABDOMINAL: moderate diffuse tenderness, vague abdominal discomfort on palpation, no rebound EXTREMITIES: No clubbing cyanosis or edema NEUROLOGICAL: Spontaneously moves all 4 extremities cranial 2 through 12 grossly intact no gross focal deficits appreciated LABORATORY DATA, MICROBIOLOGY: Please see below. 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 1. End stage liver disease. 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
[2018-11-03] MEDS ORDERED: MORPHINE 10MG/0.5ML ORAL CONCENTRATE SOLUTION U/D SL PRN (19:00)
[2018-11-03] MEDS ORDERED: ONDANSETRON 4 MG TAB (S0181) PO PRN (19:45)
[2018-11-04] MEDS: LORazepam 1 MG TAB PO PRN (08:29)
[2018-11-04] MEDS ORDERED: LORazepam 1 MG TAB PO SCH (09:00)
[2018-11-04] MEDS ORDERED: MORPHINE 10MG/0.5ML ORAL CONCENTRATE SOLUTION U/D SL SCH (10:00)
[2018-11-04] MEDS: LORazepam 1 MG TAB PO SCH ×2 (11:53→16:03)
[2018-11-04] MEDS: MORPHINE 10MG/0.5ML ORAL CONCENTRATE SOLUTION U/D SL SCH ×4 (11:53→21:42)
[2018-11-04] MEDS: LORazepam 2 MG TAB PO SCH ×2 (20:12→23:30)
[2018-11-05] MEDS ORDERED: ATROPINE SULFATE 1% OP SOLN 2 ML BTL SL PRN
[2018-11-05] MEDS: MORPHINE 10MG/0.5ML ORAL CONCENTRATE SOLUTION U/D SL SCH (00:16)
[2018-11-05] MEDS: LORazepam 2 MG TAB PO SCH (02:44)
--- NOTE | 2018-11-05 17:12 | DS.PDOC ---
Discharge Summary General Date of Admission Nov 02, 2018 at 15:03 Date of Discharge 11/05/18 Primary Care Physician: DARIN CEE M.D. Attending Physician: ADAM CONTRERAS DO Discharge Summary PROCEDURES PERFORMED DURING STAY: None. ADMITTING DIAGNOSES: #Idiopathic hepatic cirrhosis with recurrent ascites #Hepatorenal syndrome. #CKDIII # HTN. #Depression. #Right breast invasive ductal carcinoma s/p chemo and RT #Non Hodgkin's lymphoma #Seizure disorder #Diabetes. #GERD DISCHARGE DIAGNOSES: 1. #Idiopathic hepatic cirrhosis with recurrent ascites #Hepatorenal syndrome. #CKDIII # HTN. #Depression. #Right breast invasive ductal carcinoma s/p chemo and RT #Non Hodgkin's lymphoma #Seizure disorder #Diabetes. #GERD COMPLICATIONS/CHIEF COMPLAINT: End Stage Liver Disease. HISTORY OF PRESENT ILLNESS: 68 yo female with extensive medical history including hepatorenal syndrome, end stage liver disease presents for comfort care and placement with hospice. Currently denies any medical complaints. Denies shortness of breath, chest pain, abdominal pain, nausea, vomiting, diarrhea. HOSPITAL COURSE: During hospital course patient has been treated with supportive care. Due to failure to thrive and multiple comorbidities patient was transitioned to [facility] status. On 11/05/18 patient was pronounced . Vital Signs/I&Os Vital Signs Date Time Temp Pulse Resp B/P (MAP) Pulse Ox O2 Delivery O2 Flow Rate FiO2 11/05/18 00:16 22 11/01/18 20:45 56 87/52 (64) 11/01/18 18:45 100 11/01/18 14:30 Room Air 11/01/18 13:19 97.7 I&O- Last 24 Hours up to 6 AM 11/05/18 06:00 Intake Total 0 ml Output Total 0 ml Balance 0 ml Discharge Medications Scheduled Calcium Carb/Mag Ox/Zinc Sulf (Cuewmva-Bwfhfdlvl-Ylpt Tablet) 1 Tab Tab, 1 TAB PO DAILY, (Reported) Ferrous Sulfate (Ferrous Sulfate) 325 Mg Tablet, 325 MG PO BID, (Reported) Folic Acid (Folic Acid) 1 Mg Tablet, 1 MG PO DAILY, (Reported) Lactulose (Lactulose) 10 Gm/15 Ml Solution, 30 ML PO BID, (Reported) HOLD AFTER 2-3 BOWEL MOVEMENTS DAILY Nadolol (Nadolol) 20 Mg Tablet, 20 MG PO QHS, (Reported) Omeprazole (Omeprazole) 40 Mg Cap, 40 MG PO DAILY, (Reported) Quetiapine Fumarate (Quetiapine Fumarate) 25 Mg Tab, 25 MG PO QHS, (Reported) Spironolactone (Spironolactone) 50 Mg Tablet, 50 MG PO BID, (Reported) 0800/1600 Torsemide (Torsemide) 100 Mg Tablet, 50 MG PO DAILY, (Reported) Allergies Coded Allergies: Lincosamides (Verified Allergy, Intermediate, HIVES, 08/25/18) Macrolide Antibiotics (Verified Allergy, Intermediate, HIVES, 08/25/18) Sulfa (Sulfonamide Antibiotics) (Verified Allergy, Intermediate, hives, 07/13/18) erythromycin base (Verified Allergy, Intermediate, hives, 11/01/18) ADAM CONTRERAS DO Nov 05, 2018 17:12
== END 2018-11-05 03:25 | disposition expired | DRG 432 ==
LOC: M ED 12:57 → EDBD 12:57 → M ED INP 12:58 → M MS5PR 11-02 00:05 → OBSVTOIN 11-02 15:03
PROVIDERS: ADMIT Internal Medicine; ATTEND Internal Medicine
DX: K74.69 Other cirrhosis of liver (principal); K76.7 Hepatorenal syndrome; R18.8 Other ascites; N18.3 Chronic kidney disease, stage 3 (moderate); K72.90 Hepatic failure, unspecified without coma; I12.9 Hypertensive chronic kidney disease with stage 1 through stage 4 chronic kidney disease, or unspecified chronic kidney disease; F32.9 Major depressive disorder, single episode, unspecified; G40.909 Epilepsy, unspecified, not intractable, without status epilepticus; Z51.5 Encounter for palliative care; Z66 Do not resuscitate; E11.22 Type 2 diabetes mellitus with diabetic chronic kidney disease; K21.9 Gastro-esophageal reflux disease without esophagitis; Z85.3 Personal history of malignant neoplasm of breast; Z85.79 Personal history of other malignant neoplasms of lymphoid, hematopoietic and related tissues; Z92.3 Personal history of irradiation; Z92.21 Personal history of antineoplastic chemotherapy; Z79.899 Other long term (current) drug therapy; Z88.1 Allergy status to other antibiotic agents; Z88.2 Allergy status to sulfonamides; Z88.8 Allergy status to other drugs, medicaments and biological substances